=== PATIENT | female | born 1950 | race Caucasian/White ===

== ENCOUNTER 2020-12-01 05:28 | Inpatient (IN) | payer MEDICAID, MEDICARE, OTHER ==
[~2020-12-01] VITALS: Ht 154.9 cm; Wt 62.6 kg
--- NOTE | 2020-12-01 05:49 | ED Dyspnea ---
General Stated Complaint: SOB History of Present Illness Date Seen by Provider: Dec 01, 2020 Time Seen by Provider: 05:40 Initial Comments 7-year-old female with past medical history significant for COPD presents via EMS with shortness of air. Symptoms began yesterday afternoon gradually and she has done several breathing treatments and it progressed throughout the night she called 911 this morning around 5 AM. On arrival EMS states her oxygen saturations were in the low 80s, she was given a breathing treatment in route and eventually progressed to a nonrebreather and her saturations were 97% on arrival. Denies recent fever chills. Allergies and Home Medications Allergies Coded Allergies: egg (Unverified Allergy, Unknown, 12/03/20) orange (Unverified Allergy, Unknown, 12/03/20) Home Medications Cetirizine HCl 10 Mg Tablet, 10 MG PO DAILY, (Reported) Last Action: Reviewed Diclofenac Sodium 50 Mg Tablet.dr, 50 MG PO DAILY, (Reported) Last Action: Reviewed Diclofenac Sodium 50 Mg Tablet.dr, 50 MG PO BID PRN for INFLAMMATION, (Reported) Last Action: Reviewed Diltiazem HCl 120 Mg Capsule.er, 120 MG PO HS, (Reported) Last Action: Reviewed Fluticasone/Salmeterol 1 Each Blst.w.dev, 1 PUFF INH BID, (Reported) Last Action: Reviewed Hydrochlorothiazide 12.5 Mg Tablet, 6.25 MG PO DAILY, (Reported) TAKES OF A 12.5MG TAB Last Action: Reviewed Ipratropium/Albuterol Sulfate 3 Ml Ampul.neb, 3 ML INH Q8H PRN for SHORTNESS OF BREATH, (Reported) Last Action: Reviewed Lisinopril 5 Mg Tablet, 5 MG PO DAILY, (Reported) Last Action: Reviewed Metformin HCl 500 Mg Tablet, 250 MG PO TIDPC, (Reported) TAKES OF A 500MG TAB Last Action: Reviewed Prednisone 10 Mg Tab.ds.pk, 10 MG PO DAILY Take 6 tabs(60mg)daily,decrease by 1 tab(10mg)every other day. Prescribed by: KAREN TRINIDAD on 12/03/20 1236 Rosuvastatin Calcium 10 Mg Tablet, 10 MG PO HS, (Reported) Last Action: Reviewed Patient Home Medication List Home Medication List Reviewed: Yes Review of Systems Review of Systems Constitutional: No fever; malaise; No weakness EENTM: no symptoms reported Respiratory: cough, short of breath, wheezing Cardiovascular: No chest pain, No edema, No palpitations, No syncope Gastrointestinal: No abdominal pain, No constipation, No diarrhea, No nausea, No vomiting Musculoskeletal: No back pain, No joint pain Skin: No change in color, No rash Psychiatric/Neurological: Denies Numbness, Denies Paresthesia Physical Exam Vital Signs Vital Signs - First Documented 12/01/20 05:40 Temp 37.9 Pulse 113 Resp 34 B/P (MAP) 168/87 (114) Pulse Ox 99 O2 Delivery NIV Bilevel O2 Flow Rate 12.00 Capillary Refill : Height, Weight, BMI Height: '" Weight: lbs. oz. kg; BMI Method: General Appearance: Anxious, Chronically ill, Moderate Distress HEENT: Normal ENT Inspection Neck: Normal Inspection, Supple Respiratory: Accessory Muscle Use, Decreased Breath Sounds, Respiratory Distress, Wheezing Cardiovascular: No Edema, No JVD, Tachycardia Gastrointestinal: Non Tender, Soft; No Distended, No Guarding Extremity: Normal Inspection, Non Tender Neurologic/Psychiatric: Alert, Oriented x3, No Motor/Sensory Deficits Skin: Normal Color, Warm/Dry Focused Exam Lactate Level 12/01/20 06:22: Lactic Acid Level 1.12 Lactic Acid Level Laboratory Tests Test 12/01/20 06:22 Lactic Acid Level 1.12 MMOL/L (0.50-2.00) Progress/Results/Core Measures Results/Orders Lab Results Laboratory Tests Test 12/01/20 05:49 12/01/20 06:22 Range/Units White Blood Count 7.1 4.3-11.0 10^3/uL Red Blood Count 3.57 L 4.35-5.85 10^6/uL Hemoglobin 10.9 L 11.5-16.0 G/DL Hematocrit 33 L 35-52 % Mean Corpuscular Volume 94 80-99 FL Mean Corpuscular Hemoglobin 31 25-34 PG Mean Corpuscular Hemoglobin Concent 33 32-36 G/DL Red Cell Distribution Width 12.1 10.0-14.5 % Platelet Count 404 H 130-400 10^3/uL Mean Platelet Volume 8.6 7.4-10.4 FL Neutrophils (%) (Auto) 72 42-75 % Lymphocytes (%) (Auto) 13 12-44 % Monocytes (%) (Auto) 15 H 0-12 % Eosinophils (%) (Auto) 0 0-10 % Basophils (%) (Auto) 0 0-10 % Neutrophils # (Auto) 5.1 1.8-7.8 X 10^3 Lymphocytes # (Auto) 0.9 L 1.0-4.0 X 10^3 Monocytes # (Auto) 1.1 H 0.0-1.0 X 10^3 Eosinophils # (Auto) 0.0 0.0-0.3 10^3/uL Basophils # (Auto) 0.0 0.0-0.1 10^3/uL Sodium Level 130 L 135-145 MMOL/L Potassium Level 4.9 3.6-5.0 MMOL/L Chloride Level 89 L 98-107 MMOL/L Carbon Dioxide Level 30 21-32 MMOL/L Anion Gap 11 5-14 MMOL/L Blood Urea Nitrogen 11 7-18 MG/DL Creatinine 0.64 0.60-1.30 MG/DL Estimat Glomerular Filtration Rate > 60 BUN/Creatinine Ratio 17 Glucose Level 163 H 70-105 MG/DL Calcium Level 9.4 8.5-10.1 MG/DL Corrected Calcium 9.2 8.5-10.1 MG/DL Total Bilirubin 0.3 0.1-1.0 MG/DL Aspartate Amino Transf (AST/SGOT) 27 5-34 U/L Alanine Aminotransferase (ALT/SGPT) 28 0-55 U/L Alkaline Phosphatase 90 40-136 U/L Troponin I < 0.30 <0.30 NG/ML Total Protein 7.6 6.4-8.2 GM/DL Albumin 4.2 3.2-4.5 GM/DL Lactic Acid Level 1.12 0.50-2.00 MMOL/L My Orders Orders - ROVENSTINE,AUSTIN L DO Cbc With Automated Diff (12/01/20 05:44) Comprehensive Metabolic Panel (12/01/20 05:44) Arterial Blood Gas (12/01/20 05:44) Lactic Acid Analyzer (12/01/20 05:44) Troponin I Fs (12/01/20 05:44) Chest 1 View Ap/Pa Only (12/01/20 05:44) Ekg Tracing (12/01/20 05:44) Ed Iv/Invasive Line Start (12/01/20 05:44) Albuterol/Ipra Inhalation Soln (Duoneb I (12/01/20 06:00) Svn Small Volume Nebulizer (12/01/20 05:49) Lorazepam Injection (Ativan Injection) (12/01/20 06:15) Methylprednisolone Sod Succ (Solu-Medrol (12/01/20 07:00) Medications Given in ED Vital Signs/I&O 12/01/20 12/01/20 12/01/20 05:40 05:45 06:53 Temp 37.9 37.9 Pulse 113 113 Resp 34 34 B/P (MAP) 168/87 (114) 143/110 Pulse Ox 99 99 O2 Delivery NIV Bilevel OxyMask NIV Bilevel O2 Flow Rate 12.00 12.00 12.00 Initial ECG Impression Date: Dec 01, 2020 Initial ECG Impression Time: 06:15 Initial ECG Rate: 115 Initial ECG Rhythm: S.Tach Initial ECG Comparisson: No Previous ECG Available Critical Care Note Critical Care Start Time: 05:40 Stop Time: 06:55 Total Time (minutes) 75 Progress started on BiPap for cont'd resp distress, pt anxious but tolerating it. unable to pull meds (ativan) from [facility] to help w anxiety....decision to transfer Improved prior to transfer, tolerating BiPap. Discussed w EMS Departure Communication (Admissions) Time/Spoke to Admitting Phy: 06:[address] Lorenzo, accepts for transfer to ICU explained having trouble w [facility] and unable to pull meds right now and want to move quickly to higher level of care. She agrees. Chem pending. Reviewed CXR and no infiltrate or effusion. Impression Primary Impression: COPD exacerbation Additional Impression: Respiratory distress Disposition: 30 STILL A PATIENT Condition: Improved Admissions Decision to Admit Reason: Admit from ER (Trauma) Decision to Admit/Date: Dec 03, 2020 Time/Decision to Admit Time: 06:00 Departure-Patient Inst. Referrals: VERNON VILLALOBOS DO (PCP/Family) Primary Care Physician Scripts Prednisone (Prednisone) 10 Mg Tab.ds.pk 10 MG PO DAILY, #42 EA Take 6 tabs(60mg)daily,decrease by 1 tab(10mg)every other day. Prov: KAREN TRINIDAD MD 12/03/20 AUSTIN ROBERTO DO Dec 01, 2020 05:49
[2020-12-01] MEDS ORDERED: RT-ALBUTEROL/IPRATROPIUM 3 ML (DUONEB) VIAL INH ONE (06:00)
[2020-12-01 06:01] LABS: BASOPHILS % (AUTO) 0 % (0-10); EOSINOPHILS % (AUTO) 0 % (0-10); HEMATOCRIT 33 % (35-52); HEMOGLOBIN 10.9 G/DL (11.5-16.0); LYMPHOCYTES # (AUTO) 0.9 X 10^3 (1.0-4.0); LYMPHOCYTES % (AUTO) 13 % (12-44); MEAN CORPUSCULAR HEMOGLOBIN 31 PG (25-34); MEAN CORPUSCULAR HGB CONC 33 G/DL (32-36); MEAN CORPUSCULAR VOLUME 94 FL (80-99); MEAN PLATELET VOLUME 8.6 FL (7.4-10.4); MONOCYTES # (AUTO) 1.1 X 10^3 (0.0-1.0); MONOCYTES % (AUTO) 15 % (0-12); NEUTROPHILS # (AUTO) 5.1 X 10^3 (1.8-7.8); NEUTROPHILS % (AUTO) 72 % (42-75); PLATELET COUNT 404 10^3/uL (130-400); WHITE BLOOD COUNT 7.1 10^3/uL (4.3-11.0)
[2020-12-01] MEDS ORDERED: LORazepam INJ 2 MG/ML (ATIVAN) VIAL IVP ONE (06:15)
[2020-12-01 06:22] LABS: ALANINE AMINOTRANSFERASE 28 U/L (0-55); ALBUMIN 4.2 GM/DL (3.2-4.5); ALKALINE PHOSPHATASE 90 U/L (40-136); BILIRUBIN,TOTAL 0.3 MG/DL (0.1-1.0); BUN/CREATININE RATIO 17; CALCIUM 9.4 MG/DL (8.5-10.1); CARBON DIOXIDE 30 MMOL/L (21-32); CHLORIDE 89 MMOL/L (98-107); CREATININE SERUM 0.64 MG/DL (0.60-1.30); GFR ESTIMATED > 60; GLUCOSE 163 MG/DL (70-105); POTASSIUM 4.9 MMOL/L (3.6-5.0); SODIUM 130 MMOL/L (135-145); TOTAL PROTEIN 7.6 GM/DL (6.4-8.2)
--- NOTE | 2020-12-01 06:55 | Diagnostic Imaging Report ---
Indication: Dyspnea. Comparison: None. Discussion: Single portable upright view of the chest was obtained. The lungs are hyperinflated. Mild interstitial thickening is likely due to chronic lung disease. No focal consolidation. No pleural fluid or pneumothorax. Eventration of the right hemidiaphragm is noted. Normal heart size. No osseous abnormality. Impression: 1. No acute cardiopulmonary process. Dictated by: Dictated on workstation # [id number]
[2020-12-01] MEDS ORDERED: methylPREDNISolone 125 MG (Solu-MEDROL) VIAL IVP ONE (07:00)
[2020-12-01] MEDS ORDERED: HYDR12.56 PO (08:06)
[2020-12-01] MEDS ORDERED: IPRA3AMP31 INH (08:06)
[2020-12-01] MEDS ORDERED: ROSU10TA28 PO (08:06)
[2020-12-01] MEDS ORDERED: DILT120C85 PO (08:06)
[2020-12-01] MEDS ORDERED: DICL50TA6 PO (08:06)
[2020-12-01] MEDS ORDERED: LISI-729 PO (08:06)
[2020-12-01] MEDS ORDERED: CETI10TA17 PO (08:06)
[2020-12-01] MEDS ORDERED: FLUT1DIS26 INH (08:06)
[2020-12-01] MEDS ORDERED: METF-397 PO (08:06)
[2020-12-01] MEDS ORDERED: ANTACID SUSP 30 ML UDC (MYLANTA) PO PRN (08:45)
[2020-12-01] MEDS ORDERED: MILK OF MAGNESIA 400 MG/5 ML 30 ML UDC PO PRN (08:45)
[2020-12-01] MEDS ORDERED: BENZONATATE 100 MG (TESSALON) CAPSULE PO PRN (08:45)
[2020-12-01] MEDS ORDERED: ACETAMINOPHEN 325 MG TABLET PO PRN (08:45)
[2020-12-01] MEDS ORDERED: RT-ALBUTEROL/IPRATROPIUM 3 ML (DUONEB) VIAL IH PRN (08:45)
[2020-12-01] MEDS ORDERED: ONDANSETRON 4 MG/2 ML (SDV) Z0FRAN IV PRN (08:45)
[2020-12-01] MEDS ORDERED: MELATONIN 3 MG TABLET PO PRN (08:45)
[2020-12-01] MEDS ORDERED: NON-FORMULARY MEDICATION 1 EA EA (Fluticasone/Salmeterol (Advair 250-50 Diskus) 1 PUFF) SCH (09:00)
[2020-12-01] MEDS ORDERED: HYDROCHLOROTHIAZIDE 6.25 MG PO SCH (09:00)
[2020-12-01] MEDS ORDERED: NON-FORMULARY MEDICATION 1 EA EA (Cetirizine HCl 10 MG) PO SCH (09:00)
--- NOTE | 2020-12-01 10:05 | Tele-ICU Consult ---
History of Present Illness History of Present Illness Date Seen by Provider: Dec 01, 2020 Time Seen by Provider: 10:01 Date of Admission 70 y/o female with a hx of COPD presents to ED with SOB and hypoxemia with pulse ox in the 80s CXR Single portable upright view of the chest was obtained. The lungs are hyperinflated. Mild interstitial thickening is likely due to chronic lung disease. No focal consolidation. No pleural fluid or pneumothorax. Eventration of the right hemidiaphragm is noted. Normal heart size. No osseous abnormality. Impression: 1. No acute cardiopulmonary process. LABS: normal WBC and lactate ABG not drawn Admitted to ICU with excaerbation of COPD on NRB Pulse ox now 100% Allergies and Home Medications Allergies Coded Allergies: No Known Drug Allergies (Unverified , 12/01/20) Home Medications Cetirizine HCl 10 Mg Tablet, 10 MG PO DAILY, (Reported) Diclofenac Sodium 50 Mg Tablet.dr, 50 MG PO DAILY, (Reported) Diltiazem HCl 120 Mg Capsule.er, 120 MG PO HS, (Reported) Fluticasone/Salmeterol 1 Each Blst.w.dev, 1 PUFF BID, (Reported) Hydrochlorothiazide 12.5 Mg Tablet, 6.25 MG PO DAILY, (Reported) Ipratropium/Albuterol Sulfate 3 Ml Ampul.neb, 3 ML INH BID PRN, (Reported) Lisinopril 5 Mg Tablet, 5 MG PO DAILY, (Reported) Metformin HCl 500 Mg Tablet, 250 MG PO TID, (Reported) Rosuvastatin Calcium 10 Mg Tablet, 10 MG PO HS, (Reported) Past Medical/Social/Family Hx Patient Social History Tobacco Use?: Yes Tobacco type used: Cigarettes Smoking Status: Former Smoker Smokeless Tobacco Frequency: Never a User Use of E-Cig and/or Vaping dev: No Substance use?: No Alcohol Use?: No Pt stated abuse/neglect: No Immunizations Up To Date Influenza Vaccine Up-to-Date: No; Not Current Tetanus Booster (TDap): Unknown Current Status status: Unable to obtain status: No Advance Directives: No Advance Directive Location: Home Communicates: Verbally Primary Language: Tanzanian Preferred Spoken Language: Tanzanian Is interpretation needed?: No Implanted or Applied Medical D: None Review of Systems Constitutional: No no symptoms reported, No see HPI, No chills, No diaphoresis, No dizziness, No fever, No malaise, No weakness, No weight gain, No weight loss, No other EENTM: No see HPI, No no symptoms reported, No ear discharge, No hearing loss, No ear pain, No blurred vision, No double vision, No eye pain, No tearing, No vision loss, No dental problems, No hoarseness, No mouth pain, No mouth swelling, No epistaxis, No nose congestion, No nose pain, No throat pain, No throat swelling, No other Respiratory: dyspnea on exertion, short of breath Sepsis Event Evaluation Height, Weight, BMI Height: '" Weight: lbs. oz. kg; 25.67 BMI Method: Exam Exam Patient acknowledged, consented, and participated in this virtual visit which was conducted using real time audio/video Vital Signs Date Time Temp Pulse Resp B/P (MAP) Pulse Ox O2 Delivery O2 Flow Rate FiO2 12/01/20 09:01 92 27 123/57 (79) 98 OxyMask 10.00 12/01/20 07:55 36.4 104 32 117/84 (95) 100 OxyMask 10.00 12/01/20 07:50 106 12/01/20 06:53 37.9 113 34 143/110 99 NIV Bilevel 12.00 12/01/20 05:45 OxyMask 12.00 12/01/20 05:40 37.9 113 34 168/87 (114) 99 NIV Bilevel 12.00 Height & Weight Height: '" Weight: lbs. oz. kg; 25.67 BMI Method: General Appearance: Anxious, Chronically ill, Moderate Distress HEENT: Normal ENT Inspection Neck: Normal Inspection, Supple Respiratory: Accessory Muscle Use, Decreased Breath Sounds, Respiratory Distress, Wheezing Cardiovascular: No Edema, No JVD, Tachycardia Capillary Refill: Less Than 3 Seconds Extremity: Normal Inspection, Non Tender Neurologic/Psychiatric: Alert, Oriented x3, No Motor/Sensory Deficits Skin: Normal Color, Warm/Dry Results Lab Laboratory Tests 12/01/20 05:49 Assessment/Plan Assessment/Plan IMP: acute exaccerbation of COPD with hypoxemic respiratory failure PLAN: IV steroids, albuterol nebs, O2 OLGA PIÑA MD Dec 01, 2020 10:05
--- NOTE | 2020-12-01 10:07 | History & Physical-Hospitalist ---
History of Present Illness HPI/Chief Complaint Pt is a 70CF witha PMH of HTN, NIDDMII, and COPD with chronic 3lpm oxygen requirement who presented to the ER due to shortness of breath. She has had a cough with sputum production over the past 4 days but no fevers or sick contacts. She was using her nebulizer at home around the clock yesterday from the afternoon on. She has not been about any fireworks or smoke. She was hypoxic in the 80s on EMS arrival and by arrival to ER she was on a non rebreather. She was placed on BiPAP in the ER and quickly transferred here as they did not have access to meds in the [place]. She reports feeling much better already and is down to just 6lpm. She has not been COVID vaccinated and despite our discussion continues to refuse vaccination. Source: patient Date Seen 12/01/20 Time Seen by a Provider: 10:02 Attending Physician Alfred Lorenzo MD PCP Damian Hinton DO Referring Physician Date of Admission Dec 01, 2020 at 07:39 Home Medications & Allergies Home Medications Reviewed patient Home Medication Reconciliation performed by pharmacy medication reconciliations pv design and installation technician and/or nursing. Patients Allergies have been reviewed. Allergies Allergies Coded Allergies No Known Drug Allergies (Unverified12/01/20) Past Jrlorao-Qrvwyo-Lrklkf Hx Patient Social History Tobacco Use?: Yes Tobacco type used: Cigarettes Smoking Status: Former Smoker Smokeless Tobacco Frequency: Never a User Use of E-Cig and/or Vaping dev: No Substance use?: No Alcohol Use?: No Pt feels they are or have been: No Immunizations Up To Date Tetanus Booster (TDap): Unknown Current Status status: Unable to obtain status: No Advance Directives: No Advance Directive Location: Home Communicates: Verbally Primary Language: Malian Preferred Spoken Language: Malian Is interpretation needed?: No Implanted or Applied Medical D: None Past Medical History Asthma, COPD Coronary Artery Disease, Hypertension Diabetes, Non-Insulin dep Family Medical History Reviewed Nursing Family Hx No Pertinent Family Hx Review of Systems Constitutional: No chills, No fever EENTM: no symptoms reported Respiratory: cough, phlegm, short of breath, wheezing Cardiovascular: No chest pain, No edema; Hx of Intervention; No palpitations Gastrointestinal: No abdominal pain, No nausea, No vomiting Genitourinary: no symptoms reported Musculoskeletal: no symptoms reported Skin: no symptoms reported Psychiatric/Neurological: No Symptoms Reported Physical Exam Physical Exam Vital Signs Vital Signs - First Documented 12/01/20 05:40 Temp 37.9 Pulse 113 Resp 34 B/P (MAP) 168/87 (114) Pulse Ox 99 O2 Delivery NIV Bilevel O2 Flow Rate 12.00 Capillary Refill : Less Than 3 Seconds Height, Weight, BMI Height: '" Weight: lbs. oz. kg; 25.67 BMI Method: General Appearance: No Apparent Distress, WD/WN, Chronically ill HEENT: PERRL/EOMI, Moist Mucous Membranes; No Scleral Icterus (L), No Scleral Icterus (R) Neck: Normal Inspection, Supple Respiratory: No Accessory Muscle Use, No Respiratory Distress, Wheezing, Other (on 6lpm) Cardiovascular: Regular Rate, Rhythm, No Murmur Gastrointestinal: Normal Bowel Sounds, Non Tender, Soft Extremity: Normal Capillary Refill, No Calf Tenderness, No Pedal Edema Neurologic/Psychiatric: Alert, Oriented x3, Normal Mood/Affect Skin: Normal Color, Warm/Dry Results Results/Procedures Labs Laboratory Tests 12/01/20 05:49 Patient resulted labs reviewed. Imaging: Reviewed Imaging Report Imaging [facility] [place] NAME: GLO CURRIE Jermaine [facility] REC#: [id number] PT STATUS: REG ER : 1950 PHYSICIAN: AUSTIN ROBERTO DO ADMIT DATE: 12/01/20/ER FS Draft Date of Exam:12/01/20 CHEST 1 VIEW AP/PA ONLY Indication: Dyspnea. Comparison: None. Discussion: Single portable upright view of the chest was obtained. The lungs are hyperinflated. Mild interstitial thickening is likely due to chronic lung disease. No focal consolidation. No pleural fluid or pneumothorax. Eventration of the right hemidiaphragm is noted. Normal heart size. No osseous abnormality. Impression: 1. No acute cardiopulmonary process. Dictated on workstation # [id number] Dict: 12/01/20 0638 Trans: 12/01/20 0639 [facility] [id number] Interpreted by: WESLY BARRETO MD Electronically signed by: Assessment/Plan Admission Diagnosis Acute on chronic respiratory failure Admission Status: Inpatient Order (span 2 midnights) Reason for Inpatient Admission: see below Assessment and Plan Acute on chronic respiratory failure COPD with 3lpm chronic need Tobacco abuse Was on BiPAP but now off and doing well Titrate oyxgen to maintain sats >90 Continue steroids Continue home Advair TeleICU consult Recently quit smoking 1 month ago MAT protocol HTN Resome home meds BP well controlled NIDDMII Hold metformin for now Anticipate higher blood sugars with steroids SSI CAD No acute needs, continue home meds Code status: Patient requests to be a DNR. States she has lived a long and fulfilling life raising four children and fostering others. She would like to be allowed to peacefully if it came to that. Code status changed. DVt ppx: Lovenox Diagnosis/Problems Diagnosis/Problems (1) Acute respiratory failure (2) CAD (coronary artery disease) (3) Essential (primary) hypertension (4) Non-insulin dependent type 2 diabetes mellitus (5) Tobacco abuse (6) Prophylactic measure (7) COPD exacerbation Status: Acute ALFRED LORENZO MD Dec 01, 2020 10:07
[2020-12-01] MEDS: RT--FLUTICASONE/SALMETEROL 113-14 (AIRDUO RespiCLICK) IH SCH ×2 (10:12→22:46)
[2020-12-01] MEDS: RT-ALBUTEROL/IPRATROPIUM 3 ML (DUONEB) VIAL IH SCH ×4 (10:12→22:47)
[2020-12-01] MEDS: inSUlin ASPART (NovoLOG) 1 UNIT/0.01 ML (CHARGE PER UNIT) SC SCH ×3 (10:29→21:33)
[2020-12-01] MEDS: LORATADINE (CLARITIN) 10 MG TAB PO SCH (10:29)
[2020-12-01] MEDS: ENOXAPARIN 40 MG/0.4 ML (LOVENOX) SYR SQ SCH (10:29)
[2020-12-01] MEDS: lisINopril 5 MG (PRINIVIL) TABLET PO SCH (10:29)
[2020-12-01] MEDS: methylPREDNISolone 125 MG (Solu-MEDROL) VIAL IV SCH ×2 (12:17→17:31)
[2020-12-01] MEDS: ALPRAZolam 0.25 MG (XANAX) TAB PO PRN ×2 (13:00→21:33)
[2020-12-01 20:04] VITALS: BP 133/71
[2020-12-01] MEDS ORDERED: NON-FORMULARY MEDICATION 1 EA EA (Diltiazem HCl (Diltiazem ER) 120 MG) PO SCH (21:00)
[2020-12-01] MEDS: ROSUVASTATIN 10 MG (CRESTOR) TABLET PO SCH (21:32)
[2020-12-01] MEDS: dilTIAZem120 MG (CARDIZEM CD) CAP PO SCH (21:32)
[2020-12-01 23:54] VITALS: BP 99/63
[2020-12-02] MEDS: methylPREDNISolone 125 MG (Solu-MEDROL) VIAL IV SCH (00:21)
[2020-12-02] MEDS: RT-ALBUTEROL/IPRATROPIUM 3 ML (DUONEB) VIAL IH SCH ×6 (02:26→21:45)
[2020-12-02 03:49] VITALS: BP 158/68
[2020-12-02] MEDS: inSUlin ASPART (NovoLOG) 1 UNIT/0.01 ML (CHARGE PER UNIT) SC SCH ×4 (05:16→20:16)
[2020-12-02] MEDS: ALPRAZolam 0.25 MG (XANAX) TAB PO PRN (05:25)
[2020-12-02 05:58] LABS: HEMATOCRIT 31 % (35-52); HEMOGLOBIN 9.9 g/dL (11.5-16.0); MEAN CORPUSCULAR HEMOGLOBIN 30 pg (25-34); MEAN CORPUSCULAR HGB CONC 32 g/dL (32-36); MEAN CORPUSCULAR VOLUME 93 fL (80-99); MEAN PLATELET VOLUME 9.2 fL (9.0-12.2); PLATELET COUNT 314 10^3/uL (130-400); WHITE BLOOD COUNT 5.7 10^3/uL (4.3-11.0)
[2020-12-02 06:10] LABS: POTASSIUM 4.4 MMOL/L (3.6-5.0)
[2020-12-02 06:11] LABS: CALCIUM 9.2 MG/DL (8.5-10.1)
[2020-12-02 06:15] LABS: CREATININE SERUM 0.96 MG/DL (0.60-1.30)
[2020-12-02 07:45] VITALS: BP_SYST 117; BP_SYST 158; BP_DIAS 58; BP_DIAS 68
[2020-12-02] MEDS: lisINopril 5 MG (PRINIVIL) TABLET PO SCH (08:10)
[2020-12-02] MEDS: LORATADINE (CLARITIN) 10 MG TAB PO SCH (08:10)
[2020-12-02] MEDS ORDERED: predniSONE 20 MG TAB PO NR (08:15)
--- NOTE | 2020-12-02 10:01 | Physical Therapy Progress Note ---
Therapy Progress Note Patient adamantly declined PT stating, "I will wait on my daughter. She's a real bitch. You can deal with her. I'm going to sleep now." 1 ref ([id number]) TYRESE ADLER PT Dec 02, 2020 10:00
[2020-12-02] MEDS: ENOXAPARIN 40 MG/0.4 ML (LOVENOX) SYR SQ SCH (11:04)
--- NOTE | 2020-12-02 11:05 | Progress Note - Hospitalist ---
Subjective HPI/CC On Admission Date Seen by Provider: Dec 02, 2020 Time Seen by Provider: 09:25 Pt is a 70CF witha PMH of HTN, NIDDMII, and COPD with chronic 3lpm oxygen requirement who presented to the ER due to shortness of breath. She has had a cough with sputum production over the past 4 days but no fevers or sick contacts. She was using her nebulizer at home around the clock yesterday from the afternoon on. She has not been about any fireworks or smoke. She was hypoxic in the 80s on EMS arrival and by arrival to ER she was on a non rebreather. She was placed on BiPAP in the ER and quickly transferred here as they did not have access to meds in the xis. She reports feeling much better already and is down to just 6lpm. She has not been COVID vaccinated and despite our discussion continues to refuse vaccination. Subjective/Events-last exam She is feeling better today. She is not feeling short of breath at this time. She still has a cough and sputum production. She denies fevers. Focused Exam Lactate Level 12/01/20 06:22: Lactic Acid Level 1.12 Objective Exam Vital Signs Vital Signs Date Time Temp Pulse Resp B/P (MAP) Pulse Ox O2 Delivery O2 Flow Rate FiO2 12/02/20 10:13 94 Nasal Cannula 3.00 12/02/20 07:45 36.5 90 20 117/58 (77) Capillary Refill : Less Than 3 Seconds General Appearance: No Apparent Distress, Chronically ill Respiratory: No Respiratory Distress, Wheezing Cardiovascular: Regular Rate, Rhythm, No Edema, No Murmur Gastrointestinal: Normal Bowel Sounds, Non Tender, Soft Extremity: Normal Inspection, Non Tender, No Pedal Edema Neurologic/Psychiatric: Alert, Oriented x3, No Motor/Sensory Deficits Skin: Normal Color, Warm/Dry Results/Procedures Lab Laboratory Tests 12/02/20 05:38 Patient resulted labs reviewed. Imaging: Reviewed Imaging Report Assessment/Plan Assessment and Plan Assess & Plan/Chief Complaint Acute on chronic respiratory failure with hypoxia COPD Tobacco abuse Continue steroids Continue home Advair MAT protocol Recently quit smoking 1 month ago Supplemental oxygen as needed, currently on 3 L baseline HTN Continue home meds NIDDMII Hold metformin for now Anticipate higher blood sugars with steroids SSI CAD No acute needs, continue home meds DVt ppx: Lovenox Diagnosis/Problems Diagnosis/Problems (1) Acute on chronic respiratory failure with hypoxia Status: Acute (2) COPD exacerbation Status: Acute (3) Tobacco abuse Status: Chronic (4) Essential (primary) hypertension Status: Chronic KAREN TRINIDAD MD Dec 02, 2020 11:05
[2020-12-02 11:15] VITALS: BP 146/65
[2020-12-02] MEDS: RT--FLUTICASONE/SALMETEROL 113-14 (AIRDUO RespiCLICK) IH SCH ×2 (11:30→22:31)
--- NOTE | 2020-12-02 12:01 | Physical Therapy Evaluation ---
PT Evaluation-General Medical Diagnosis Admission Date Dec 01, 2020 at 07:39 Medical Diagnosis: respiratory distress/exacerbation COPD Onset Date: Dec 01, 2020 Therapy Diagnosis Therapy Diagnosis: debility Precautions Precautions/Isolations: Fall Prevention, Standard Precautions Referral Physician: Lyric Reason for Referral: Evaluation/Treatment Medical History Pertinent Medical History: COPD, DM, HTN Current History EMS secondary to SOA Reviewed History: Yes Social History Home: Apartment Current Living Status: Alone Prior Prior Level of Function SCALE: Activities may be completed with or without assistive devices. 9-Ibuaqzcnep-hfcyiwr completes the activity by him/herself with no assistance from a helper. 5-Set-up or Clean-up Assistance-helper sets up or cleans up; patient completes activity. [place] assists only prior to or following the activity. 4-Supervision or Touching Assistance-helper provides verbal cues and/or touching/steadying and/or contact guard assistance as patient completes activi ty. Assistance may be provided throughout the activity or intermittently. 3-Partial/Moderate Assistance-helper does LESS THAN HALF the effort. [place] lifts, holds or supports trunk or limbs, but provides less than half the effort. 2-Substantial/Maximal Assistance-helper does MORE THAN HALF the effort. [place] lifts or holds trunk or limbs and provides more than half the effort. 7-Izmusovxz-lfukrh does ALL the effort. Patient does none of the effort to complete the activity. Or, the assistance of 2 or more helpers is required for the patient to complete the activity. If activity was not attempted, code reason: 7-Patient Refused. 9-Not Applicable-not attempted and the patient did not perform the activity before the current illness, exacerbation or injury. 10-Not Attempted due to Environmental Limitations-(lack of equipment, weather restraints, etc.). 88-Not Attempted due to Medical Conditions or Safety Concerns. Bed Mobility: 6 Transfers (B,C,W/C): 6 Gait: 6 Indoor Mobility (Ambulation): Independent Prior Devices Use: None PT Evaluation-Current Subjective Patient adamantly declined FWW use. PT attempted to educate patient on using FWW for energy conservation, however, patient continued to decline stating, "I'm not old." Objective Patient Orientation: Person, Time, Situation Attachments: Oxygen ROM/Strength ROM Lower Extremities bilateral LE WFL Strength Lower Extremities 3+/5 grossly bilateral LE Integumentary/Posture Bowel Incontinence: No Bladder Incontinence: No Posture WFL Neuromuscular (Tone, Coordination, Reflexes) grossly intact Sensory Vision: Wears Glasses Hearing: Functional Transfers Lying to Sitting/Side of Bed(Q: 6 Sit to Stand (QC): 4 Chair/Kkt-am-Abdph Xfer(QC): 4 Gait Does the Patient Walk?: Yes Mode of Locomotion: Walk Anticipated Mode of Locomotion: Walk Walk 10 feet (QC): 4 Walk 50 ft with 2 Turns(QC): 4 Walk 150 ft (QC): 88 Distance: 75' Gait Assistive Device: None Comments/Gait Description patient utilized bed rails and table to ambulate Balance Sitting Static: Normal Sitting Dynamic: Normal Standing Static: Fair Standing Dynamic: Fair Picking up an Object (QC): 6 Treatment SAO2 decrease to 83% on 4L O2 NC. Very slow recovery with increasing O2 to 5L with recovery to 90% after 5 min. RN notified. Assessment/Needs 70 y.o. female, will benefit from skilled PT to address functional strength and mobility to improve current LOF to safely return to home at maximum LOF. Rehab Potential: Fair PT [facility] Goals [employer] Account Executive Goals PT [employer] Account Executive Goals Time Frame: Dec 13, 2020 Roll Left & Right (QC): 6 Sit to Lying (QC): 6 Lying-Sitting on Side/Bed(QC): 6 Sit to Stand (QC): 6 Chair/Lrg-jd-Iwetn Xfer(QC): 6 Toilet Transfer (QC): 6 Does the Patient Walk: Yes Walk 10 feet (QC): 6 Walk 50ft with 2 Turns (QC): 6 Walk 150 ft (QC): 6 PT Plan Problem List Problem List: Activity Tolerance, Functional Strength, Safety, Balance, Gait, Transfer Treatment/Plan Treatment Plan: Continue Plan of Care Treatment Plan: Bed Mobility, Education, Functional Activity Delilah, Functional Strength, Gait, Safety, Therapeutic Exercise, Transfers Treatment Duration: Dec 13, 2020 Frequency: 6 times per week Estimated Hrs Per Day: .25 hour per day Patient and/or Family Agrees t: Yes Time/GCodes Time In: 1100 Time Out: 1115 Total Billed Treatment Time: 15 Total Billed Treatment 1 visit EVModC 15 min TYRESE ADLER PT Dec 02, 2020 12:01
[2020-12-02 16:20] VITALS: BP 116/55
[2020-12-02 19:20] VITALS: BP 129/58
[2020-12-02] MEDS: ROSUVASTATIN 10 MG (CRESTOR) TABLET PO SCH (20:33)
[2020-12-02] MEDS: dilTIAZem120 MG (CARDIZEM CD) CAP PO SCH (20:33)
[2020-12-02 23:27] VITALS: BP 102/57
[2020-12-03] MEDS: RT-ALBUTEROL/IPRATROPIUM 3 ML (DUONEB) VIAL IH SCH ×4 (01:46→15:35)
[2020-12-03 04:00] VITALS: BP 94/54
[2020-12-03] MEDS: inSUlin ASPART (NovoLOG) 1 UNIT/0.01 ML (CHARGE PER UNIT) SC SCH ×2 (06:36→11:05)
[2020-12-03] MEDS ORDERED: predniSONE 20 MG TAB PO SCH (07:00)
[2020-12-03 08:00] VITALS: BP 125/68
[2020-12-03] MEDS: lisINopril 5 MG (PRINIVIL) TABLET PO SCH (08:29)
[2020-12-03] MEDS: LORATADINE (CLARITIN) 10 MG TAB PO SCH (08:29)
[2020-12-03] MEDS: ENOXAPARIN 40 MG/0.4 ML (LOVENOX) SYR SQ SCH (08:29)
[2020-12-03] MEDS: ALPRAZolam 0.25 MG (XANAX) TAB PO PRN (08:35)
[2020-12-03 08:39] LABS: CHLORIDE 91 MMOL/L (98-107); POTASSIUM 4.6 MMOL/L (3.6-5.0); SODIUM 134 MMOL/L (135-145)
[2020-12-03 08:40] LABS: CALCIUM 9.1 MG/DL (8.5-10.1)
[2020-12-03 08:41] LABS: GLUCOSE 144 MG/DL (70-105)
[2020-12-03 08:42] LABS: CARBON DIOXIDE 34 MMOL/L (21-32)
[2020-12-03 08:45] LABS: BUN/CREATININE RATIO 40; CREATININE SERUM 0.87 MG/DL (0.60-1.30); GFR ESTIMATED > 60
[2020-12-03] MEDS: RT--FLUTICASONE/SALMETEROL 113-14 (AIRDUO RespiCLICK) IH SCH (10:12)
--- NOTE | 2020-12-03 10:32 | Physical Therapy Daily Note ---
PT Daily Note-Current Subjective Patient reluctantly agrees to PT. Continues to decline FWW use for energy conservation. Mental Status Patient Orientation: Normal For Age Attachments: Oxygen Transfers SCALE: Activities may be completed with or without assistive devices. 5-Yfesvnwclt-yoybgap completes the activity by him/herself with no assistance from a helper. 5-Set-up or Clean-up Assistance-helper sets up or cleans up; patient completes activity. [place] assists only prior to or following the activity. 4-Supervision or Touching Assistance-helper provides verbal cues and/or touching/steadying and/or contact guard assistance as patient completes activity. Assistance may be provided throughout the activity or intermittently. 3-Partial/Moderate Assistance-helper does LESS THAN HALF the effort. [place] lifts, holds or supports trunk or limbs, but provides less than half the effort. 2-Substantial/Maximal Assistance-helper does MORE THAN HALF the effort. [place] lifts or holds trunk or limbs and provides more than half the effort. 1-Ycuaqdrgx-boavwf does ALL the effort. Patient does none of the effort to complete the activity. Or, the assistance of 2 or more helpers is required for the patient to complete the activity. If activity was not attempted, code reason: 7-Patient Refused. 9-Not Applicable-not attempted and the patient did not perform the activity before the current illness, exacerbation or injury. 10-Not Attempted due to Environmental Limitations-(lack of equipment, weather restraints, etc.). 88-Not Attempted due to Medical Conditions or Safety Concerns. Lying to Sitting/Side of Bed(Q: 6 Sit to Stand (QC): 6 Chair/Yxr-bl-Tyzpq Xfer(QC): 6 Gait Training Does the Patient Walk?: Yes Distance: 50' in room Walk 10 feet (QC): 4 (SBA) Walk 50 ft with 2 Turns(QC): 4 (SBA) Gait Assistive Device: None slight unsteady gait with patient "furniture" walking Assessment Patient ceased treatment due to feeling nauseous and increase anxiety. RN aware. PT Shop Teacher Goals Shop Teacher Goals PT Alf Goals Time Frame: Dec 13, 2020 Roll Left & Right (QC): 6 Sit to Lying (QC): 6 Lying-Sitting on Side/Bed(QC): 6 Sit to Stand (QC): 6 Chair/Yjw-gk-Rampw Xfer(QC): 6 Toilet Transfer (QC): 6 Does the Patient Walk: Yes Walk 10 feet (QC): 6 Walk 50ft with 2 Turns (QC): 6 Walk 150 ft (QC): 6 PT Plan Treatment/Plan Treatment Plan: Continue Plan of Care Treatment Plan: Bed Mobility, Education, Functional Activity Delilah, Functional Strength, Gait, Safety, Therapeutic Exercise, Transfers Treatment Duration: Dec 13, 2020 Frequency: 6 times per week Estimated Hrs Per Day: .25 hour per day Patient and/or Family Agrees t: Yes Time/GCodes Time In: 840 Time Out: 856 Total Billed Treatment Time: 16 Total Billed Treatment 1 visit FA 16 min TYRESE ADLER PT Dec 03, 2020 10:32
[2020-12-03] MEDS ORDERED: DICL50TA6 PO (11:47)
[2020-12-03 12:00] VITALS: BP 108/63
[2020-12-03] MEDS ORDERED: PRED10TA22 PO (12:36)
--- NOTE | 2020-12-03 13:10 | Discharge Summary ---
Discharge Summary Hospital Course Was the Problem List Reviewed?: Yes Problems/Dx: (1) Acute on chronic respiratory failure with hypoxia Status: Acute (2) COPD exacerbation Status: Acute (3) Tobacco abuse Status: Chronic (4) Essential (primary) hypertension Status: Chronic Hospital Course Date of Admission: Dec 01, 2020 at 07:39 Admission Diagnosis : COPD with acute exacerbation Family Physician/Provider: Damian Hinton DO Date of Discharge: 12/03/20 Discharge Diagnosis: COPD with acute exacerbation Hospital Course: Connie Mancuso is a 70 year old female who was admitted with acute COPD exacerbation. She chronically uses 3 L oxygen at baseline. She was requiring increased amounts of oxygen on arrival, but this quickly improved with steroids. Her oxygen requirement returned to baseline prior to discharge. She was prescribed a steroid taper on discharge. She did not want home health care. She was discharged home in stable condition. She should follow up with her PCP in a week. Labs and Pending Lab Test: Laboratory Tests 12/02/20 16:32: Glucometer 162H 12/02/20 19:23: Glucometer 167H 12/03/20 05:53: Glucometer 125H 12/03/20 08:00: Sodium Level 134L, Potassium Level 4.6, Chloride Level 91L, Carbon Dioxide Level 34H, Anion Gap 9, Blood Urea Nitrogen 35H, Creatinine 0.87, Estimat Glomerular Filtration Rate > 60, BUN/Creatinine Ratio 40, Glucose Level 144H, Calcium Level 9.1 12/03/20 08:52: Glucometer 179H 12/03/20 10:59: Glucometer 139H Microbiology 12/01/20 MRSA Screen - Final, Complete MRSA not isolated Home Meds Active Prednisone 10 Mg Tab.ds.pk 10 Mg PO DAILY Take 6 tabs(60mg)daily,decrease by 1 tab(10mg)every other day. Reported Diclofenac Sodium 50 Mg Tablet.dr 50 Mg PO BID PRN Cetirizine HCl 10 Mg Tablet 10 Mg PO DAILY Metformin HCl 500 Mg Tablet 250 Mg PO TIDPC TAKES OF A 500MG TAB Rosuvastatin Calcium 10 Mg Tablet 10 Mg PO HS Hydrochlorothiazide 12.5 Mg Tablet 6.25 Mg PO DAILY TAKES OF A 12.5MG TAB Diclofenac Sodium 50 Mg Tablet.dr 50 Mg PO DAILY Lisinopril 5 Mg Tablet 5 Mg PO DAILY Diltiazem ER (Diltiazem HCl) 120 Mg Capsule.er 120 Mg PO HS Iprat-Albut 0.5-3(2.5) mg/3 ml (Ipratropium/Albuterol Sulfate) 3 Ml Ampul.neb 3 Ml INH Q8H PRN Advair 250-50 Diskus (Fluticasone/Salmeterol) 1 Each Blst.w.dev 1 Puff INH BID Assessment/Pt Instructions Take medications as prescribed. Follow up with your PCP. Return with worsening shortness of breath or if you feel like you are getting worse. Discharge Planning: <30 minutes discharge planning Discharge Instructions Discharge Diet: No Restrictions Activity as Tolerated: Yes Discharge Physical Examination Vital Signs Vital Signs Date Time Temp Pulse Resp B/P (MAP) Pulse Ox O2 Delivery O2 Flow Rate FiO2 12/03/20 12:00 36.6 82 20 108/63 (78) 96 Nasal Cannula 3.00 General Appearance: No Apparent Distress, Chronically ill Respiratory: No Respiratory Distress, Decreased Breath Sounds Cardiovascular: Regular Rate, Rhythm, No Edema, No Murmur Gastrointestinal: Normal Bowel Sounds, Non Tender, Soft Extremity: Normal Inspection, Non Tender, No Pedal Edema Skin: Normal Color, Warm/Dry Neurologic/Psychiatric: Alert, Oriented x3, No Motor/Sensory Deficits, Normal Mood/Affect Allergies: Coded Allergies: egg (Unverified Allergy, Unknown, 12/03/20) orange (Unverified Allergy, Unknown, 12/03/20) Copy Copies To 1: DAMIAN HINTON DO Discharge Summary Date of Admission Dec 01, 2020 at 07:39 Date of Discharge Discharge Date: Dec 03, 2020 Discharge Time: 12:52 Admission Diagnosis Acute on chronic respiratory failure Discharge Diagnosis Acute on chronic respiratory failure with hypoxia COPD exacerbation (1) Acute on chronic respiratory failure with hypoxia Status: Acute (2) COPD exacerbation Status: Acute (3) Tobacco abuse Status: Chronic (4) Essential (primary) hypertension Status: Chronic KAREN TRINIDAD MD Dec 03, 2020 13:06
== END 2020-12-03 16:20 | disposition home or self-care (01) | DRG 189 ==
LOC: EDUNIT# 05:28 → ER FS 05:39 → ICU 07:39 → 4TH 15:22
PROVIDERS: ADMIT Family Medicine; ATTEND Family Medicine
PROC: 5A09357 Assistance with Respiratory Ventilation, Less than 24 Consecutive Hours, Continuous Positive Airway Pressure (ICD-10-PCS; principal; 2020-12-01)
DX: J96.21 Acute and chronic respiratory failure with hypoxia (principal); J44.1 Chronic obstructive pulmonary disease with (acute) exacerbation; I10 Essential (primary) hypertension; E11.9 Type 2 diabetes mellitus without complications; I25.10 Atherosclerotic heart disease of native coronary artery without angina pectoris; F17.200 Nicotine dependence, unspecified, uncomplicated; Z66 Do not resuscitate; Z20.822 Contact with and (suspected) exposure to COVID-19; Z79.01 Long term (current) use of anticoagulants; Z79.899 Other long term (current) drug therapy
CPT/HCPCS: 36415; 71045; 80048; 80053; 82947; 83605; 84145; 84484; 85025; 85027; 87081; 87636; 93005; 94640; 94760

== ENCOUNTER 2022-05-13 06:13 | Inpatient (IN) | payer MEDICARE ==
[~2022-05-13] VITALS: Ht 154 cm; Wt 70.7 kg
[~2022-05-13 06:13] MED LIST: CETI10TA17 PO; DICL50TA6 PO; DILT120C85 PO; FLUT1DIS26 INH; HYDR12.56 PO; IPRA3AMP31 INH; LISI5TAB20 PO; METF-397 PO; PRED10TA22 PO; ROSU10TA28 PO
--- NOTE | 2022-05-13 06:28 | ED General ---
General Stated Complaint: ALTERED MENTAL STATUS History of Present Illness Date Seen by Provider: May 13, 2022 Time Seen by Provider: 06:25 Initial Comments 71-year-old female brought in due to altered mental status. EMS reports that she was found by her family altered. We are unsure if she fell because he was reports that she "slid down off the couch. She has a very minimal abrasion by the left eye. EMS reports that her oxygen was in the 70s when they arrived and placed her on nonrebreather which brought her oxygen back up in the upper 90s. No other HPI available (ALIVIA TUCKER DO) Allergies and Home Medications Allergies Coded Allergies: egg (Unverified Allergy, Unknown, 12/03/20) orange (Unverified Allergy, Unknown, 12/03/20) Patient Home Medication List Home Medication List Reviewed: Yes (ALIVIA TUCKER DO) Cetirizine HCl (Cetirizine HCl) 10 Mg Tablet, 10 MG PO DAILY, (Reported) Entered as Reported by: SHANITA DICKSON on 12/01/20 08 Diclofenac Sodium (Diclofenac Sodium) 50 Mg Tablet.dr, 50 MG PO DAILY, (Reported) Entered as Reported by: SHANITA DICKSON on 12/01/20 08 Diclofenac Sodium (Diclofenac Sodium) 50 Mg Tablet.dr, 50 MG PO BID PRN for INFLAMMATION, (Reported) Entered as Reported by: DEBBY CAVAZOS on 12/03/20 1147 Diltiazem HCl (Diltiazem ER) 120 Mg Capsule.er, 120 MG PO HS, (Reported) Entered as Reported by: SHANITA DICKSON on 12/01/20 08 Fluticasone/Salmeterol (Advair 250-50 Diskus) 1 Each Blst.w.dev, 1 PUFF INH BID, (Reported) Entered as Reported by: SHANITA DICKSON on 12/01/20 08 Hydrochlorothiazide (Hydrochlorothiazide) 12.5 Mg Tablet, 6.25 MG PO DAILY, (Reported) Entered as Reported by: SHANITA DICKSON on 12/01/20 08 Ipratropium/Albuterol Sulfate (Iprat-Albut 0.5-3(2.5) mg/3 ml) 3 Ml Ampul.neb, 3 ML INH Q8H PRN for SHORTNESS OF BREATH, (Reported) Entered as Reported by: SHANITA DICKSON on 12/01/20 08 Lisinopril (Lisinopril) 5 Mg Tablet, 5 MG PO DAILY, (Reported) Entered as Reported by: SHANITA DICKSON on 12/01/20 08 Metformin HCl (Metformin HCl) 500 Mg Tablet, 250 MG PO TIDPC, (Reported) Entered as Reported by: SHANITA DICKSON on 12/01/20 08 Prednisone (Prednisone) 10 Mg Tab.ds.pk, 10 MG PO DAILY Prescribed by: KAREN TRINIDAD on 12/03/20 1236 Rosuvastatin Calcium (Rosuvastatin Calcium) 10 Mg Tablet, 10 MG PO HS, (Reported) Entered as Reported by: SHANITA DICKSON on 12/01/20 08 Review of Systems Review of Systems Constitutional: see HPI Unable to obtain further review of system (ALIVIA TUCKER DO) Past Afdultx-Lboxdk-Hzcmhj Hx Past Medical History Asthma, COPD Coronary Artery Disease, Hypertension Diabetes, Non-Insulin dep (ALIVIA TUCKER DO) Family Medical History No Pertinent Family Hx (ALIVIA TUCKER DO) Physical Exam Vital Signs Vital Signs - First Documented 05/13/22 05/13/22 06:15 08:17 Temp 35.6 Pulse 87 Resp 20 B/P (MAP) 111/90 (97) Pulse Ox 97 O2 Delivery Non Rebreather O2 Flow Rate 12.00 (ELIDA MORAN MD) Vital Signs Capillary Refill : (ALIVIA TUCKER DO) Height, Weight, BMI Height: '" Weight: lbs. oz. kg; 25.67 BMI Method: General Appearance: Other (Chronically ill-appearing, moaning, ) Eyes: Bilateral Eye Other (Approximately 2 mm and sluggish) Respiratory: Decreased Breath Sounds Cardiovascular: Regular Rate, Rhythm, No Edema Neurologic/Psychiatric: Other (mild response to painful stimuli, doesnt follow commands ) (ALIVIA TUCKER DO) Focused Exam Lactate Level 05/13/22 06:30: Lactic Acid Level 0.52 (ELIDA MORAN MD) Lactic Acid Level Laboratory Tests Test 05/13/22 06:30 Lactic Acid Level 0.52 MMOL/L (0.50-2.00) (ELIDA MORAN MD) Progress/Results/Core Measures Suspected Sepsis SIRS Temperature: Pulse: Respiratory Rate: Laboratory Tests 05/13/22 06:30: White Blood Count 6.2 Blood Pressure / Mean: 05/13/22 06:30: Laboratory Tests 05/13/22 06:30: Platelet Count 192 (ALIVIA TUCKER DO) Results/Orders Lab Results Laboratory Tests Test 05/13/22 06:30 05/13/22 06:37 05/13/22 07:02 05/13/22 07:21 Range/Units White Blood Count 6.2 4.3-11.0 10^3/uL Red Blood Count 3.28 L 3.80-5.11 10^6/uL Hemoglobin 9.3 L 11.5-16.0 g/dL Hematocrit 31 L 35-52 % Mean Corpuscular Volume 94 80-99 fL Mean Corpuscular Hemoglobin 28 25-34 pg Mean Corpuscular Hemoglobin Concent 30 L 32-36 g/dL Red Cell Distribution Width 12.8 10.0-14.5 % Platelet Count 192 130-400 10^3/uL Mean Platelet Volume 10.6 9.0-12.2 fL Immature Granulocyte % (Auto) 0 % Neutrophils (%) (Auto) 88 H 42-75 % Lymphocytes (%) (Auto) 6 L 12-44 % Monocytes (%) (Auto) 5 0-12 % Eosinophils (%) (Auto) 0 0-10 % Basophils (%) (Auto) 0 0-10 % Neutrophils # (Auto) 5.5 1.8-7.8 10^3/uL Lymphocytes # (Auto) 0.4 L 1.0-4.0 10^3/uL Monocytes # (Auto) 0.3 0.0-1.0 10^3/uL Eosinophils # (Auto) 0.0 0.0-0.3 10^3/uL Basophils # (Auto) 0.0 0.0-0.1 10^3/uL Immature Granulocyte # (Auto) 0.0 0.0-0.1 10^3/uL Neutrophils % (Manual) 82 % Lymphocytes % (Manual) 4 % Monocytes % (Manual) 7 % Band Neutrophils 7 % Toxic Granulation 2+ Platelet Estimate NORMAL Poikilocytosis SLIGHT Elliptocytes SLIGHT Schistocytes SLIGHT Blood Morphology Comment ABNORMAL Sodium Level 137 135-145 MMOL/L Potassium Level 5.2 H 3.6-5.0 MMOL/L Chloride Level 92 L 98-107 MMOL/L Carbon Dioxide Level 41 H 21-32 MMOL/L Anion Gap 4 L 5-14 MMOL/L Blood Urea Nitrogen 24 H 7-18 MG/DL Creatinine 0.68 0.60-1.30 MG/DL Estimat Glomerular Filtration Rate 93 BUN/Creatinine Ratio 35 Glucose Level 132 H 70-105 MG/DL Lactic Acid Level 0.52 0.50-2.00 MMOL/L Calcium Level 9.3 8.5-10.1 MG/DL Corrected Calcium 9.4 8.5-10.1 MG/DL Total Bilirubin 0.2 0.1-1.0 MG/DL Aspartate Amino Transf (AST/SGOT) 24 5-34 U/L Alanine Aminotransferase (ALT/SGPT) 10 0-55 U/L Alkaline Phosphatase 63 40-136 U/L Troponin I < 0.30 <0.30 NG/ML C-Reactive Protein 1.58 H <0.50 MG/DL Total Protein 7.5 6.4-8.2 GM/DL Albumin 3.9 3.2-4.5 GM/DL Serum Alcohol < 10 <10 MG/DL Influenza Type A (RT-PCR) Not Detected Not Detecte Influenza Type B (RT-PCR) Not Detected Not Detecte SARS-CoV-2 RNA (RT-PCR) Not Detected Not Detecte Urine Color YELLOW Urine Clarity CLEAR Urine pH 6.0 5-9 Urine Specific [place] >=1.030 1.016-1.022 Urine Protein TRACE H NEGATIVE Urine Glucose (UA) NEGATIVE NEGATIVE Urine Ketones NEGATIVE NEGATIVE Urine Nitrite NEGATIVE NEGATIVE Urine Bilirubin NEGATIVE NEGATIVE Urine Urobilinogen 0.2 < = 1.0 MG/DL Urine Leukocyte Esterase NEGATIVE NEGATIVE Urine RBC (Auto) TRACE-I H NEGATIVE Urine RBC 2-5 H /HPF Urine WBC 0-2 /HPF Urine Squamous Epithelial Cells 0-2 /HPF Urine Crystals NONE /LPF Urine Bacteria NEGATIVE /HPF Urine Casts PRESENT /LPF Urine Hyaline Casts 5-10 H /LPF Urine Granular Casts 0-2 H /LPF Urine Mucus SMALL H /LPF Urine Culture Indicated NO Urine Opiates Screen NEGATIVE NEGATIVE Urine Oxycodone Screen NEGATIVE NEGATIVE Urine Methadone Screen NEGATIVE NEGATIVE Urine Propoxyphene Screen NEGATIVE NEGATIVE Urine Barbiturates Screen NEGATIVE NEGATIVE Ur Tricyclic Antidepressants Screen NEGATIVE NEGATIVE Urine Phencyclidine Screen NEGATIVE NEGATIVE Urine Amphetamines Screen NEGATIVE NEGATIVE Urine Methamphetamines Screen NEGATIVE NEGATIVE Urine Benzodiazepines Screen NEGATIVE NEGATIVE Urine Cocaine Screen NEGATIVE NEGATIVE Urine Cannabinoids Screen NEGATIVE NEGATIVE Bedside Blood Gas pH (LAB) 7.148 *L 7.310-7.410 Bedside Blood Gas pCO2 (LAB) > 130.0 *H 41.0-51.0 mmHg Bedside Blood Gas pO2 (LAB) 36 *L 80-105 mmHg Bedside Blood Gas HCO3 (LAB) 23.0-28.0 mmol/L POC Blood Gas Total CO2 Calc 24-29 mmol/L Bedside Bl Gas O2 Saturation (Calc) 95-98 % Bedside Arterial Blood Base Excess -2-3 mmol/L Test 05/13/22 08:45 Range/Units Bedside Blood Gas pH (LAB) 7.093 *L 7.310-7.410 Bedside Blood Gas pCO2 (LAB) > 130.0 *H 41.0-51.0 mmHg Bedside Blood Gas pO2 (LAB) 407 H 80-105 mmHg Bedside Blood Gas HCO3 (LAB) 23.0-28.0 mmol/L POC Blood Gas Total CO2 Calc 24-29 mmol/L Bedside Bl Gas O2 Saturation (Calc) 95-98 % Bedside Arterial Blood Base Excess -2-3 mmol/L (ELIDA MORAN MD) My Orders Orders - ELIDA MORAN MD Drug Screen Stat (Urine) (05/13/22 07:12) Alcohol (05/13/22 07:12) Arterial Blood Gas (05/13/22 07:21) Ns Iv 1000 Ml (Sodium Chloride 0.9%) (05/13/22 07:35) Ekg Tracing (05/13/22 07:35) Monitor-Rhythm Ecg Trace Only (05/13/22 07:35) Bipap (Bilevel) Set Up (05/13/22 07:44) Ed Admission (Communication) (05/13/22 08:18) Arterial Blood Gas (05/13/22 08:19) Methylprednisolone Sod Succ (Solu-Medrol (05/13/22 08:28) Albuterol Pre-Mix Nebs (Rt) (Proventil (05/13/22 08:28) Svn Small Volume Nebulizer (05/13/22 08:28) Albuterol Pre-Mix Nebs (Rt) (Proventil (05/13/22 08:38) Ns Iv 1000 Ml (Sodium Chloride 0.9%) (05/13/22 09:38) (ELIDA MORAN MD) Medications Given in ED Current Medications Medications Dose Ordered Sig/Jhoana Route Start Time Stop Time Status Last Admin Dose Admin Naloxone HCl 2 mg STK-MED ONCE .ROUTE 05/13/22 06:56 05/13/22 06:58 DC 05/13/22 08:12 2 MG (ELIDA MORAN MD) Vital Signs/I&O 05/13/22 05/13/22 05/13/22 06:15 08:17 10:01 Temp 35.6 36.4 Pulse 87 81 83 Resp 20 28 38 B/P (MAP) 111/90 (97) 132/43 150/56 (87) Pulse Ox 97 92 O2 Delivery Non Rebreather NIV CPAP NIV CPAP O2 Flow Rate 12.00 50.00 (ELIDA MORAN MD) Vital Signs/I&O Capillary Refill : (ALIVIA TUCKER DO) Progress Note : Time: 06:57 Progress Note pt evaluation initiated and workup started and care turned over to oncoming physician (ALIVIA TUCKER DO) Progress Note #1: Time: 07:55 Progress Note I assumed care of the patient from Dr. Tucker at shift change. Patient with decreased responsiveness and reportedly hypoxic in mid 70s for her O2 sat initially but on OxiMask she was 100%. Labs do not show elevated WBC count and she has stable chronic anemia with Hgb 9.3. Chemistry shows Elevated CO2 to 41 with normal Cr of 0.68. Troponin is negative at <0.3. Lactic acid is normal at 0.52. Mild hyperkalemia of 5.2. Urine shows dehydration with elevated specific gravity >1.030 but no LE or Nit for UTI. UDS and alcohol levels negative. CXR without acute process. CT head no acute intracranial process. ABG might be venous as it showed pH 7.15, pCO2 >130, pO2 36. This was on her OxiMask and she was showing O2 saturation 100%. This appears to be acute on chronic respiratory failure and COPD exacerbation. She is not showing signs of infection or heart attack or heart failure. Will place on BiPAP at 12/5 with FiO2 of 40% and rate of 20. Contact Dr. Lorenzo about possible hospitalist admission to the ICU Progress Note #2: Time: 08:15 Progress Note D/w Dr. Lorenzo and reviewed case with her. Reviewed that she came in with hypoxia and decreased responsiveness but saturation 100% on Oxi Mask. Labs show elevated pCO2 on ABG which might be venous, but had >130 pCO2 so even for venous specimen was elevated. No pneumonia or CXR. CT head without acute findings. Negative troponin so not seeing heart attack at this time. ECG with sinus rhythm without ST elevation or ischemia. Not seeing infection with her Urine clear and no pne umonia. Influenza and Covid were both negative. BiPap to try and help blow off her CO2 since it had helped when she was admitted in November 2020 for respiratory failure. Consult E-ICU to help manage care and get advice for BiPap settings. She accepted to the ICU for her Respiratory failure, acute on chronic and Hypercapnemia. When I spoke to ESTEPHANIA Prescott, the warehouse order picker she said they were tight on her hands but should be able to accommodate taking care of the patient. They would assign us a room and place it on the tracker for us. 0825 Patient did not have Oxygen saturation improving on initial FiO2 settings so this was increased to 100% to try and get her sats >90%. After discussion with attending from E-ICU she had adjustments for the BiPap settings and improved tidal volume. Add on Solumedrol 125 mg IV with albuterol treatment to try and help with COPD exacerbation. Will repeat ABG after these changes and medications have been given. Progress Note #3: Time: 09:06 Progress Note ABG now shows pH 7.09, pCO2 >130, pO2 407. Will decrease FiO2 to 50% to help bring her O2 saturation down. Will check back with [facility] about bed assignment for the patient. [id number] [facility] called to say that they were on diversion for all admits but would still take this patient. They will have to move other patients around to get her bed ready and will let us know as soon as they can take her. Progress Note #4: Time: 09:35 Progress Note Tidal volume was almost 800 so will decrease I/E ratio to 16/6. This decreased her TV to 500-600. I did not want the pressure so high that it caused her to have a pneumothorax with her COPD. She finished the NS 1 L IVF bolus and is having light yellow colored urine output in [place]. Will add NS at 100 ml/hr to help with hydration. still awaiting ICU bed for patient to be transferred to [facility]. Patient is opening her eyes to voice but not following commands. (ELIDA MORAN MD) ECG Initial ECG Impression Date: May 13, 2022 Initial ECG Impression Time: 07:49 Initial ECG Rate: 82 Initial ECG Rhythm: Normal Sinus Initial ECG Comparisson: Changed Comment Based on my individual interpretation and review her electrocardiogram shows sinus rhythm with a heart rate of 82 bpm. WA interval [address] elevation. QT interval 377 ms with a QTc interval 415 ms. There is is improved from her prior tracing December 01, 2020 that had sinus tachycardia and artifact on it. (ELIDA MORAN MD) Diagnostic Imaging Diagonstic Imaging: Xray Plain Films/CT/US/NM/MRI: chest [facility] [place] [place] NAME: GLO CURRIE MED REC#: [id number] PT STATUS: REG ER : 1950 PHYSICIAN: ALIVIA TUCKER DO ADMIT DATE: 05/13/22/ER FS Signed Date of Exam:05/13/22 CHEST 1 VIEW AP/PA ONLY EXAMINATION: Chest radiograph, portable AP view. DATE: 05/13/2022 6:58 AM INDICATION: 71-year-old female, altered mental status. COMPARISON: December 01, 2020. FINDINGS: Heart size and mediastinal contours are unchanged. There is no identified pneumothorax. There is no large pleural effusion. There is no identified interval focal airspace consolidation. IMPRESSION: 1. No identified interval acute cardiopulmonary abnormality. Dictated by: Dictated on workstation # [id number] Dict: 05/13/22 0659 Trans: 05/13/[address] [facility] [id number] Interpreted by: KASIA TORRES MD Electronically signed by: KASIA TORRES MD 05/13/22806 Reviewed: Reviewed by Me Diagonstic Imaging: CT Plain Films/CT/US/NM/MRI: head Comments [facility] [place], [place] NAME: GLO CURRIE MED REC#: [id number] PT STATUS: REG ER : 1950 PHYSICIAN: ALIVIA TUCKER DO ADMIT DATE: 05/13/22/ER FS Signed Date of Exam:05/13/22 CT HEAD WO-R/O STROKE PROCEDURE: CT head without contrast. TECHNIQUE: Multiple contiguous axial images were obtained through the brain without the use of intravenous contrast. Auto Exposure Controls were utilized during the CT exam to meet ALARA standards for radiation dose reduction. DATE: May 13, 2022. COMPARISON: None. INDICATION: 71-year-old female, shortness of breath. Altered mental status. FINDINGS: There are motion limitations on this exam. The ventricles and cerebral spinal fluid spaces are of normal size and configuration for the patient's age. There is no mass effect or midline shift. There is no acute intracranial hemorrhage. There is no abnormal extra-axial fluid collection. The visualized portions of the paranasal sinuses, mastoid air cells and middle ears are well aerated. IMPRESSION: 1. No identified acute intracranial abnormality. 2. There are some motion limitations of evaluation. Dictated by: Dictated on workstation # [id number] Dict: 05/13/22711 Trans: 05/13/[address] [facility] [id number] Interpreted by: KASIA TORRES MD Electronically signed by: KASIA TORRES MD 05/13/22806 Reviewed: Reviewed by Me (ELIDA MORAN MD) Critical Care Note Critical Care Total Time (minutes) 90 minutes Progress 90 minutes of critical care time was spent with the patient. Time excludes separately billable procedures. Time was spent obtaining history from electronic record and fast food shift lead staff, ordering tests and reviewing results, ordering interventions and reviewing response, discussion with consultants, documentation in the chart. Patient was at risk of complete respiratory failure from her condition. She required my constant care and management to help with her breathing and medical condition. (ELIDA MORAN MD) Departure Communication (Admissions) Time/Spoke to Admitting Phy: 08:15 d/w Dr. Lorenzo and reviewed that she came in with hypoxia and decreased responsiveness but saturation 100% on Oxi Mask. Labs show elevated pCO2 on ABG which might be venous, but had >130 pCO2 so even for venous specimen was elevated. No pneumonia or CXR. CT head without acute findings. Negative troponin so not seeing heart attack at this time. ECG with sinus rhythm without ST elevat ion or ischemia. Not seeing infection with her Urine clear and no pneumonia. Influenza and Covid were both negative. BiPap to try and help blow off her CO2 since it had helped when she was admitted in November 2020 for respiratory failure. Consult E-ICU to help manage care and get advice for BiPap settings. Time/Spoke to Consulting Phy: 08:19 after discussion with E-ICU attending, she recommended adjusting BiPap settings to try and get TV at least 250-300. Increased I/E settings to 18/8. She is on 100% FiO2 and rate 20. Will add in solumedrol for COPD and give Albuterol treatment as well. Repeat ABG after 30-45 minutes on BiPap. (ELIDA MORAN MD) Impression Primary Impression: Acute on chronic respiratory failure with hypoxia Additional Impressions: COPD exacerbation Hypercapnemia Decreased responsiveness Disposition: 30 STILL A PATIENT Condition: Critical Admissions Decision to Admit Reason: Admit from ER (General) Decision to Admit/Date: May 13, 2022 Time/Decision to Admit Time: 08:15 (ELIDA MORAN MD) Departure-Patient Inst. Referrals: VERNON VILLALOBOS DO (PCP/Family) Primary Care Physician ALIVIA TUCKER DO May 13, 2022 06:28 ELIDA MORAN MD May 13, 2022 08:14
[2022-05-13 06:42] LABS: BASOPHILS % (AUTO) 0 % (0-10); EOSINOPHILS % (AUTO) 0 % (0-10); HEMATOCRIT 31 % (35-52); HEMOGLOBIN 9.3 g/dL (11.5-16.0); LYMPHOCYTES # (AUTO) 0.4 10^3/uL (1.0-4.0); LYMPHOCYTES % (AUTO) 6 % (12-44); MEAN CORPUSCULAR HEMOGLOBIN 28 pg (25-34); MEAN CORPUSCULAR HGB CONC 30 g/dL (32-36); MEAN CORPUSCULAR VOLUME 94 fL (80-99); MEAN PLATELET VOLUME 10.6 fL (9.0-12.2); MONOCYTES # (AUTO) 0.3 10^3/uL (0.0-1.0); MONOCYTES % (AUTO) 5 % (0-12); NEUTROPHILS # (AUTO) 5.5 10^3/uL (1.8-7.8); NEUTROPHILS % (AUTO) 88 % (42-75); PLATELET COUNT 192 10^3/uL (130-400); WHITE BLOOD COUNT 6.2 10^3/uL (4.3-11.0)
[2022-05-13] MEDS ORDERED: NALOXONE 0.4 MG/ML 1 ML (NARCAN) VIAL ONE (06:54)
[2022-05-13] MEDS ORDERED: NALOXONE 2 MG/2 ML (NARCAN) SYR ONE (06:56)
[2022-05-13 07:02] LABS: BAND NEUTROPHILS 7 %; LYMPHOCYTES % (MANUAL) 4 %; MONOCYTES % (MANUAL) 7 %; NEUTROPHILS % (MANUAL) 82 %
[2022-05-13 07:03] LABS: ELLIPT/OVALOCYTES SLIGHT; PLATELET ESTIMATE NORMAL; POIKILOCYTOSIS SLIGHT; RBC MORPH ABNORMAL; SCHISTOCYTES SLIGHT; TOXIC GRANULATION/VACUOLAZATIO 2+
[2022-05-13 07:06] LABS: BILIRUBIN,URINE NEGATIVE (NEGATIVE); CLARITY,URINE CLEAR; COLOR,URINE YELLOW; GLUCOSE, URINE (UA) NEGATIVE (NEGATIVE); KETONES,URINE NEGATIVE (NEGATIVE); LEUKOCYTE ESTERASE ,URINE NEGATIVE (NEGATIVE); NITRITE,URINE NEGATIVE (NEGATIVE); PROTEIN,URINE TRACE (NEGATIVE)
[2022-05-13 07:11] LABS: SODIUM 137 MMOL/L (135-145)
[2022-05-13 07:12] LABS: ALANINE AMINOTRANSFERASE 10 U/L (0-55); ALKALINE PHOSPHATASE 63 U/L (40-136); BILIRUBIN,TOTAL 0.2 MG/DL (0.1-1.0); BUN/CREATININE RATIO 35; CALCIUM 9.3 MG/DL (8.5-10.1); CARBON DIOXIDE 41 MMOL/L (21-32); CHLORIDE 92 MMOL/L (98-107); CREATININE SERUM 0.68 MG/DL (0.60-1.30); GFR ESTIMATED 93; GLUCOSE 132 MG/DL (70-105); POTASSIUM 5.2 MMOL/L (3.6-5.0)
[2022-05-13 07:13] LABS: ALBUMIN 3.9 GM/DL (3.2-4.5); TOTAL PROTEIN 7.5 GM/DL (6.4-8.2)
[2022-05-13 07:14] LABS: BACTERIA,URINE NEGATIVE /HPF; GRANULAR CASTS,URINE 0-2 /LPF; SQUAMOUS EPITHELIAL CELL,UR 0-2 /HPF; WBC,URINE 0-2 /HPF
--- NOTE | 2022-05-13 07:17 | Diagnostic Imaging Report ---
EXAMINATION: Chest radiograph, portable AP view. DATE: 05/13/2022 6:58 AM INDICATION: 71-year-old female, altered mental status. COMPARISON: December 01, 2020. FINDINGS: Heart size and mediastinal contours are unchanged. There is no identified pneumothorax. There is no large pleural effusion. There is no identified interval focal airspace consolidation. IMPRESSION: 1. No identified interval acute cardiopulmonary abnormality. Dictated by: Dictated on workstation # [id number]
--- NOTE | 2022-05-13 07:25 | Diagnostic Imaging Report ---
PROCEDURE: CT head without contrast. TECHNIQUE: Multiple contiguous axial images were obtained through the brain without the use of intravenous contrast. Auto Exposure Controls were utilized during the CT exam to meet ALARA standards for radiation dose reduction. DATE: May 13, 2022. COMPARISON: None. INDICATION: 71-year-old female, shortness of breath. Altered mental status. FINDINGS: There are motion limitations on this exam. The ventricles and cerebral spinal fluid spaces are of normal size and configuration for the patient's age. There is no mass effect or midline shift. There is no acute intracranial hemorrhage. There is no abnormal extra-axial fluid collection. The visualized portions of the paranasal sinuses, mastoid air cells and middle ears are well aerated. IMPRESSION: 1. No identified acute intracranial abnormality. 2. There are some motion limitations of evaluation. Dictated by: Dictated on workstation # [id number]
[2022-05-13] MEDS ORDERED: NS IV 1000 ML 1,000 ML IV STA ×2 (07:35→09:38)
[2022-05-13 07:46] LABS: AMPHETAMINE SCREEN, URINE NEGATIVE (NEGATIVE); BARBITURATE SCREEN URINE NEGATIVE (NEGATIVE); BENZODIAZEPINES SCREEN URINE NEGATIVE (NEGATIVE); CANNABINOID SCREEN, URINE NEGATIVE (NEGATIVE); COCAINE SCREEN URINE NEGATIVE (NEGATIVE); METHADONE STAT NEGATIVE (NEGATIVE); OPIATE SCREEN URINE NEGATIVE (NEGATIVE); OXYCODONE STAT NEGATIVE (NEGATIVE); TRICYCLIC ANTIDEPRESSANTS SCRE NEGATIVE (NEGATIVE)
[2022-05-13 07:47] LABS: PROPOXYPHENE STAT NEGATIVE (NEGATIVE)
[2022-05-13] MEDS ORDERED: RT-ALBUTEROL SULF 2.5 MG/3 ML PRE-MIX VIAL INH STA (08:28)
[2022-05-13] MEDS ORDERED: methylPREDNISolone 125 MG (Solu-MEDROL) VIAL IVP STA (08:28)
[2022-05-13] MEDS ORDERED: RT-ALBUTEROL SULF 2.5 MG/3 ML PRE-MIX VIAL ONE (08:38)
[2022-05-13 11:46] VITALS: BP 162/69
--- NOTE | 2022-05-13 12:25 | History & Physical-Hospitalist ---
History of Present Illness HPI/Chief Complaint Patient is 71-year-old female who presented to the emergency department due to to mental status. She is unable to provide any history and so all history is obtained from the record. She was found confused by her family and they believe she fell off the couch but they are not certain of those details. She had a CT of her head which was negative for intracranial hemorrhage. She was hypoxic when EMS arrived with sats in the 70s. She was placed on a nonrebreather and her oxygen improved but she remained lethargic and ABG revealed profound hypercapnia with a CO2 of greater than 130. She was placed on BiPAP and transferred here to the ICU. Unfortunately in transfer she did not have CPAP so has just now been replaced on BiPAP just now. Source: patient Date Seen 05/13/22 Time Seen by a Provider: 12:25 Attending Physician Damian Hinton DO PCP Admitting Physician: Alfred Lorenzo MD Attending Physician: Alfred Lorenzo MD Referring Physician Date of Admission May 13, 2022 at 11:37 Home Medications & Allergies Home Medications Reviewed patient Home Medication Reconciliation performed by pharmacy medication reconciliations registered pharmacy technician and/or nursing. Patients Allergies have been reviewed. Allergies Allergies Coded Allergies egg (Unverified Allergy, Unknown, 12/03/20) orange (Unverified Allergy, Unknown, 12/03/20) Past Aqbjrsg-Vbwkqs-[place] Hx Patient Social History Employed/Student: retired Smoking Status: Former Smoker Use of E-Cig and/or Vaping dev: Unable to obtain Substance use?: Unable to obtain Alcohol Use?: Unable to obtain Immunizations Up To Date Tetanus Booster (TDap): Unknown Current Status status: No Communicates: Unable To Communicate Primary Language: Tanzanian Preferred Spoken Language: Tanzanian Past Medical History Asthma, COPD Coronary Artery Disease, Hypertension Diabetes, Non-Insulin dep Family Medical History Reviewed Nursing Family Hx No Pertinent Family Hx Review of Systems ROS-Unable to Obtain: lethargic Constitutional: see HPI Physical Exam Physical Exam Vital Signs Vital Signs - First Documented 05/13/22 05/13/22 05/13/22 06:15 08:17 15:04 Temp 35.6 Pulse 87 Resp 20 B/P (MAP) 111/90 (97) Pulse Ox 97 O2 Delivery Non Rebreather O2 Flow Rate 12.00 FiO2 50 Capillary Refill : Less Than 3 Seconds Height, Weight, BMI Height: '" Weight: lbs. oz. kg; 25.67 BMI Method: General Appearance: No Apparent Distress, Chronically ill HEENT: PERRL/EOMI, Moist Mucous Membranes, Other (BiPAP in place) Respiratory: No Accessory Muscle Use; No Crackles; Rhonci; No Wheezing; Other (on BiPAP) Cardiovascular: Regular Rate, Rhythm, No Murmur Gastrointestinal: Normal Bowel Sounds, Non Tender, Soft Extremity: Swelling (right lower extremity) Neurologic/Psychiatric: Alert (opens eyes and moves purposefully but did not answer questions) Results Results/Procedures Labs Laboratory Tests 05/14/22 17:15 05/15/22 04:32 05/16/22 04:15 Patient resulted labs reviewed. Imaging: Reviewed Imaging Report Imaging [facility], [place] NAME: GLO CUR[facility] REC#: [id number] PT STATUS: REG ER : 1950 PHYSICIAN: ALIVIA TUCKER DO ADMIT DATE: 05/13/22/ER FS Signed Date of Exam:05/13/22 CHEST 1 VIEW AP/PA ONLY EXAMINATION: Chest radiograph, portable AP view. DATE: 05/13/2022 6:58 AM INDICATION: 71-year-old female, altered mental status. COMPARISON: December 01, 2020. FINDINGS: Heart size and mediastinal contours are unchanged. There is no identified pneumothorax. There is no large pleural effusion. There is no identified interval focal airspace consolidation. IMPRESSION: 1. No identified interval acute cardiopulmonary abnormality. Dictated by: Dictated on workstation # [id number] Dict: 05/13/2259 Trans: 05/13/22806 [facility] [id number] Interpreted by: KASIA TORRES MD Electronically signed by: KASIA TORRES MD 05/13/22806 [facility] [place] NAME: GLO CURRIE [facility] REC#: [id number] PT STATUS: REG ER : 1950 PHYSICIAN: ALIVIA TUCKER DO ADMIT DATE: 05/13/22/ER FS Signed Date of Exam:05/13/22 CT HEAD WO-R/O STROKE PROCEDURE: CT head without contrast. TECHNIQUE: Multiple contiguous axial images were obtained through the brain without the use of intravenous contrast. Auto Exposure Controls were utilized during the CT exam to meet ALARA standards for radiation dose reduction. DATE: May 13, 2022. COMPARISON: None. INDICATION: 71-year-old female, shortness of breath. Altered mental status. FINDINGS: There are motion limitations on this exam. The ventricles and cerebral spinal fluid spaces are of normal size and configuration for the patient's age. There is no mass effect or midline shift. There is no acute intracranial hemorrhage. There is no abnormal extra-axial fluid collection. The visualized portions of the paranasal sinuses, mastoid air cells and middle ears are well aerated. IMPRESSION: 1. No identified acute intracranial abnormality. 2. There are some motion limitations of evaluation. Dictated by: Dictated on workstation # [id number] Dict: 05/13/22711 Trans: 05/13/22 08 [facility] [id number] Interpreted by: KASIA TORRES MD Electronically signed by: KASIA TORRES MD 05/13/22 0807 Assessment/Plan Admission Diagnosis Acute on chronic respiratory failure Admission Status: Inpatient Order (span 2 midnights) Reason for Inpatient Admission: see below Assessment and Plan Acute on chronic respiratory failure COPD Exacerbation with hypercapnia BiPAP currently Repeat ABG in an hour as she was off for transport Continue IV steroids TeleICU consult- appreciate recs MAT protocol HTN Resome home meds BP well controlled NIDDMII Hold metformin for now Anticipate higher blood sugars with steroids SSI CAD No acute needs, continue home meds Social situation Daughter reports to RN that patient had bed bugs in home Will consult social work DVT ppx: Lovenox Diagnosis/Problems Diagnosis/Problems (1) COPD exacerbation Status: Acute (2) Decreased responsiveness Status: Acute (3) Hypercapnemia Status: Acute (4) Essential (primary) hypertension Status: Chronic (5) Non-insulin dependent type 2 diabetes mellitus (6) Prophylactic measure (7) CAD (coronary artery disease) ALFRED LORENZO MD May 13, 2022 12:25
[2022-05-13] MEDS ORDERED: ONDANSETRON 4 MG/2 ML (SDV) Z0FRAN IV PRN (12:30)
[2022-05-13] MEDS ORDERED: ACETAMINOPHEN 325 MG TABLET PO PRN (12:30)
[2022-05-13] MEDS ORDERED: polyethylene glycoL POWDER 17 GM (MIRALAX) PACK PO PRN (12:30)
[2022-05-13] MEDS ORDERED: RT-ALBUTEROL SULF 2.5 MG/3 ML PRE-MIX VIAL INH PRN (12:30)
[2022-05-13] MEDS ORDERED: CALCIUM CARBONATE 500 MG (TUMS) TAB.CHEW PO PRN (12:30)
--- NOTE | 2022-05-13 12:33 | Tele-ICU Consult ---
History of Present Illness History of Present Illness Date Seen by Provider: May 13, 2022 Time Seen by Provider: 12:31 History of Present Illness (Tele-ICU Physician , consultation as per request of PCP Service provided via interactive audio and video telecommunications E-CARE system to a patient admitted to ICU bed in [facility]. Available chart/ vitals / labs / Images reviewed H&P is from ER notes Patient's information available about PMH, Shx, Fhx allergy reviewed inEMR. ROS as per chart and RN report Now in ICU, hemodynamically stable Video assessment done using teleICU camera, rest of exam as per RN Discussed with RN. Consultants: Hospital course: 71 y/o female with hypercarbic resp failure A/P Acute on chronic hypercarbic and hypoxic resp failure , due to AECOPD - cont NIPPV , follow abg AECOPD - cont nebs , steroids IV Acute mental status change - due to hypercarbia - follow - CTH - no acute findings , toxicology negative ID - NEG serology viral - UA and cxr negative Hyperkalemia - mild , follow DM - ISS Anemia - chronic , follow DNI as per RN report Lines : , (Central Line Necessity Reviewed) Elizalde: OG: Nutrition: Analgesia: Anxiety/ delirium VTE Prophylaxis: amalia Stress Ulcer Prophylaxis: pepcid Plans in collaboration with bedside consultants and IM MDs. Discussed with RN to reach out if any questions or concerns A total of 33 minutes of critical care time was devoted to this patient today, required to treat and/or prevent further deterioration of critical care condition ( as above ) . I am remotely monitoring this patient from another state. I am unable to do the bedside exam, and history/physical and pertinent information is taken from other notes in the computer and bedside staff. . Allergies and Home Medications Allergies Coded Allergies: egg (Unverified Allergy, Unknown, 12/03/20) orange (Unverified Allergy, Unknown, 12/03/20) Home Medications Cetirizine HCl 10 Mg Tablet, 10 MG PO DAILY, (Reported) Diclofenac Sodium 50 Mg Tablet.dr, 50 MG PO DAILY, (Reported) Diclofenac Sodium 50 Mg Tablet.dr, 50 MG PO BID PRN for INFLAMMATION, (Reported) Diltiazem HCl 120 Mg Capsule.er, 120 MG PO HS, (Reported) Fluticasone/Salmeterol 1 Each Blst.w.dev, 1 PUFF INH BID, (Reported) Hydrochlorothiazide 12.5 Mg Tablet, 6.25 MG PO DAILY, (Reported) TAKES OF A 12.5MG TAB Ipratropium/Albuterol Sulfate 3 Ml Ampul.neb, 3 ML INH Q8H PRN for SHORTNESS OF BREATH, (Reported) Lisinopril 5 Mg Tablet, 5 MG PO DAILY, (Reported) Metformin HCl 500 Mg Tablet, 250 MG PO TIDPC, (Reported) TAKES OF A 500MG TAB Prednisone 10 Mg Tab.ds.pk, 10 MG PO DAILY Take 6 tabs(60mg)daily,decrease by 1 tab(10mg)every other day. Prescribed by: KAREN TRINIDAD on 12/03/20 1236 Rosuvastatin Calcium 10 Mg Tablet, 10 MG PO HS, (Reported) Past Medical/Social/Family Hx Patient Social History Use of E-Cig and/or Vaping dev: Unable to obtain Substance use?: Unable to obtain Alcohol Use?: Unable to obtain Immunizations Up To Date Tetanus Booster (TDap): Unknown Current Status status: No Communicates: Unable To Communicate Primary Language: Taiwanese Preferred Spoken Language: Taiwanese Review of Systems Constitutional: see HPI Focused Exam Lactate Level 05/13/22 06:30: Lactic Acid Level 0.52 Height, Weight, BMI Height: '" Weight: lbs. oz. kg; 25.67 BMI Method: Exam Exam Patient acknowledged, consented, and participated in this virtual visit which was conducted using real time audio/video Vital Signs Date Time Temp Pulse Resp B/P (MAP) Pulse Ox O2 Delivery O2 Flow Rate FiO2 05/13/22 11:46 82 20 100 80.00 05/13/22 10:01 36.4 83 38 150/56 (87) 92 NIV CPAP 50.00 05/13/22 08:17 35.6 81 28 132/43 97 NIV CPAP 05/13/22 06:15 87 20 111/90 (97) Non Rebreather 12.00 Height & Weight Height: '" Weight: lbs. oz. kg; 25.67 BMI Method: General Appearance: Other (Chronically ill-appearing, moaning, ) Respiratory: Decreased Breath Sounds Cardiovascular: Regular Rate, Rhythm, No Edema Capillary Refill: Less Than 3 Seconds Neurologic/Psychiatric: Other (mild response to painful stimuli, doesnt follow commands ) Results Lab Laboratory Tests 05/13/22 06:30 Assessment/Plan Assessment/Plan 1 NIVIA MOORE MD May 13, 2022 12:33
[2022-05-13] MEDS: ENOXAPARIN 40 MG/0.4 ML (LOVENOX) SYR SC SCH (13:39)
[2022-05-13 14:26] LABS: ABG BASE EXCESS 13.4 MMOL/L (-2.5-2.5); ABG OXYGEN SATURATION 97 % (94-100); ABG PO2 95 MMHG (79-93)
[2022-05-13 14:29] LABS: ABG PCO2 118 MMHG (35-45); ABG PH 7.18 (7.37-7.43)
[2022-05-13 14:30] LABS: ABG TCO2 45.7 MMOL/L (21.0-31.0); INSPIRED O2 50%; PATIENT TEMP 36.7; VENTILATOR NO
[2022-05-13 14:37] VITALS: BP 146/55
--- NOTE | 2022-05-13 15:33 | Diagnostic Imaging Report ---
INDICATION: Right arm swelling Venous Doppler of the right upper extremity. Duplex ultrasound of the venous system right upper extremity was done with grayscale, spectral wave form and color Doppler analysis. The veins of the right upper extremity have good color filling and compressibility. There is phasic flow and normal response to augmentation. IMPRESSION: Negative venous Doppler right upper extremity. Dictated by: Dictated on workstation # [id number]
[2022-05-13] MEDS: LORazepam 0.5 MG (ATIVAN) TABLET PO PRN (16:15)
[2022-05-13] MEDS ORDERED: NS IV 1000 ML 1,000 ML ONE (17:42)
[2022-05-13] MEDS: methylPREDNISolone 125 MG (Solu-MEDROL) VIAL IV SCH (17:45)
[2022-05-13] MEDS: RT-ALBUTEROL/IPRATROPIUM 3 ML (DUONEB) VIAL IH SCH ×2 (18:56→22:44)
[2022-05-13] MEDS: DexMEDEtomidine 250 ML DRIP 250 ML IV SCH (19:55)
[2022-05-13] MEDS ORDERED: RT-ALBUTEROL/IPRATROPIUM 3 ML (DUONEB) VIAL INH PRN (21:00)
[2022-05-13] MEDS ORDERED: dilTIAZem120 MG (CARDIZEM CD) CAP PO ONE (21:35)
[2022-05-13] MEDS ORDERED: ROSUVASTATIN 10 MG (CRESTOR) TABLET ONE (21:35)
[2022-05-13] MEDS: ROSUVASTATIN 10 MG (CRESTOR) TABLET PO SCH (21:37)
[2022-05-13] MEDS ORDERED: AMIODARONE FOR BOLUS 150 MG in NS (IVPB) 100 ML IV SCH (21:52)
[2022-05-13] MEDS ORDERED: AMIODARONE (Pyxis Kit Only) BOLUS 150 MG/3 ML IV ONE (22:00)
[2022-05-13] MEDS ORDERED: AMIODARONE (Pyxis Kit Only) DRIP 450 MG/9 ML VIAL IV ONE (22:00)
[2022-05-13] MEDS ORDERED: NORMAL SALINE 250 ML ONE (22:01)
[2022-05-13] MEDS ORDERED: NS (IVPB) 100 ML ONE (22:02)
[2022-05-13] MEDS: AMIODARONE INJECTION 450 MG in NORMAL SALINE 250 ML IV SCH (22:23)
[2022-05-13 22:44] VITALS: BP 146/55
[2022-05-13 22:46] LABS: ALBUMIN 3.5 GM/DL (3.2-4.5); BILIRUBIN,DIRECT 0.1 MG/DL (0.0-0.3); BILIRUBIN,INDIRECT 0.1 MG/DL; BILIRUBIN,TOTAL 0.2 MG/DL (0.1-1.0); TOTAL PROTEIN 6.5 GM/DL (6.4-8.2)
[2022-05-14] MEDS: methylPREDNISolone 125 MG (Solu-MEDROL) VIAL IV SCH ×2 (00:56→05:27)
[2022-05-14 01:57] VITALS: BP 100/46
[2022-05-14] MEDS: RT-ALBUTEROL/IPRATROPIUM 3 ML (DUONEB) VIAL IH SCH ×6 (01:57→22:55)
[2022-05-14] MEDS ORDERED: NS IV 1000 ML 1,000 ML ONE (02:48)
[2022-05-14] MEDS ORDERED: NS IV 500 ML 500 ML ONE (02:52)
[2022-05-14] MEDS: NS IV 500 ML 500 ML IV SCH ×2 (02:53→19:49)
[2022-05-14 04:25] LABS: HEMATOCRIT 26 % (35-52); HEMOGLOBIN 7.9 g/dL (11.5-16.0); MEAN CORPUSCULAR HEMOGLOBIN 29 pg (25-34); MEAN CORPUSCULAR HGB CONC 30 g/dL (32-36); MEAN CORPUSCULAR VOLUME 95 fL (80-99); MEAN PLATELET VOLUME 10.1 fL (9.0-12.2); PLATELET COUNT 219 10^3/uL (130-400); WHITE BLOOD COUNT 7.4 10^3/uL (4.3-11.0)
[2022-05-14 04:43] LABS: POTASSIUM 4.2 MMOL/L (3.6-5.0)
[2022-05-14 04:44] LABS: CALCIUM 8.5 MG/DL (8.5-10.1)
[2022-05-14 04:49] LABS: CREATININE SERUM 0.99 MG/DL (0.60-1.30)
[2022-05-14] MEDS ORDERED: AMIODARONE (Pyxis Kit Only) DRIP 450 MG/9 ML VIAL IV ONE (05:24)
[2022-05-14] MEDS ORDERED: NORMAL SALINE 250 ML ONE (05:25)
[2022-05-14] MEDS: AMIODARONE INJECTION 450 MG in NORMAL SALINE 250 ML IV SCH (05:50)
[2022-05-14] MEDS: LORazepam 0.5 MG (ATIVAN) TABLET PO PRN ×3 (08:06→22:37)
[2022-05-14] MEDS: PANTOPRAZOLE 40 MG (PROTONIX) VIAL IV SCH (08:06)
--- NOTE | 2022-05-14 08:17 | Consultation-Cardiology ---
HPI-Cardiology Cardiology Consultation Date of Consultation 05/14/22 Date of Admission Time Seen by Provider: 08:12 Indication: Acute respiratory failure HPI 71-year-old lady with a history of coronary artery disease, COPD, oxygen dependent, had change in mental status, was admitted for acute respiratory failure, being treated for pneumonia Overnight she became tachycardic with a heart rate around 150, responded to amiodarone drip, currently heart rate is regular and she is in sinus rhythm. She denies any chest pain or palpitation, has been following with a blasting miner in [facility] Medications & Allergies Allergies: Coded Allergies: egg (Unverified Allergy, Unknown, 12/03/20) orange (Unverified Allergy, Unknown, 12/03/20) Home Medication List Reviewed: Yes CZG-[id number]-Ptqxnq Hx Patient Social History Marital Status: Employed/Student: retired Smoking Status: Former Smoker Have you traveled recently?: No Alcohol Use?: No Past Medical History Discussed below Family Medical History Significant Family History: No Pertinent Family Hx Review of Systems-General Review of Systems Constitutional: see HPI, chills, malaise EENTM: see HPI, no symptoms reported Respiratory: no symptoms reported, see HPI, cough, dyspnea on exertion Cardiovascular: see HPI; No chest pain; edema; No Hx of Intervention, No palpitations, No syncope, No vascular heart diseas, No other Gastrointestinal: no symptoms reported, see HPI Genitourinary: no symptoms reported, see HPI Musculoskeletal: no symptoms reported, see HPI Skin: no symptoms reported, see HPI Psychiatric/Neurological: See HPI, Emotional Problems Reviewed Test Results Reviewed Test Results Lab Laboratory Tests Test 05/13/22 08:45 05/13/22 14:18 05/13/22 22:15 05/14/22 03:57 Range/Units Bedside Blood Gas pH (LAB) 7.093 *L 7.310-7.410 Bedside Blood Gas pCO2 (LAB) > 130.0 *H 41.0-51.0 mmHg Bedside Blood Gas pO2 (LAB) 407 H 80-105 mmHg Bedside Blood Gas HCO3 (LAB) 23.0-28.0 mmol/L POC Blood Gas Total CO2 Calc 24-29 mmol/L Bedside Bl Gas O2 Saturation (Calc) 95-98 % Bedside Arterial Blood Base Excess -2-3 mmol/L Blood Gas Puncture Site LT RAD Blood Gas Patient Temperature 36.7 Arterial Blood pH 7.18 *L 7.37-7.43 Arterial Blood Partial Pressure CO2 118 *H 35-45 MMHG Arterial Blood Partial Pressure O2 95 H 79-93 MMHG Arterial Blood HCO3 42 *H 23-27 MMOL/L Arterial Blood Total CO2 45.7 *H 21.0-31.0 MMOL/L Arterial Blood Oxygen Saturation 97 94-100 % Arterial Blood Base Excess 13.4 H -2.5-2.5 MMOL/L Toan Test NA Blood Gas Ventilator Setting NO Blood Gas Inspired Oxygen 50% Total Bilirubin 0.2 0.1-1.0 MG/DL Direct Bilirubin 0.1 0.0-0.3 MG/DL Indirect Bilirubin 0.1 MG/DL Aspartate Amino Transf (AST/SGOT) 16 5-34 U/L Alanine Aminotransferase (ALT/SGPT) 11 0-55 U/L Alkaline Phosphatase 53 40-136 U/L Total Protein 6.5 6.4-8.2 GM/DL Albumin 3.5 3.2-4.5 GM/DL Thyroid Stimulating Hormone (TSH) 0.39 0.35-4.94 UIU/ML White Blood Count 7.4 4.3-11.0 10^3/uL Red Blood Count 2.75 L 3.80-5.11 10^6/uL Hemoglobin 7.9 L 11.5-16.0 g/dL Hematocrit 26 L 35-52 % Mean Corpuscular Volume 95 80-99 fL Mean Corpuscular Hemoglobin 29 25-34 pg Mean Corpuscular Hemoglobin Concent 30 L 32-36 g/dL Red Cell Distribution Width 12.6 10.0-14.5 % Platelet Count 219 130-400 10^3/uL Mean Platelet Volume 10.1 9.0-12.2 fL Sodium Level 137 135-145 MMOL/L Potassium Level 4.2 3.6-5.0 MMOL/L Chloride Level 93 L 98-107 MMOL/L Carbon Dioxide Level 33 H 21-32 MMOL/L Anion Gap 11 5-14 MMOL/L Blood Urea Nitrogen 37 H 7-18 MG/DL Creatinine 0.99 0.60-1.30 MG/DL Estimat Glomerular Filtration Rate 61 BUN/Creatinine Ratio 37 Glucose Level 151 H 70-105 MG/DL Calcium Level 8.5 8.5-10.1 MG/DL Physical Exam Physical Exam Vital Signs Vital Signs - First Documented 05/13/22 05/13/22 05/13/22 06:15 08:17 15:04 Temp 35.6 Pulse 87 Resp 20 B/P (MAP) 111/90 (97) Pulse Ox 97 O2 Delivery Non Rebreather O2 Flow Rate 12.00 FiO2 50 Capillary Refill : Less Than 3 Seconds Height, Weight, BMI Height: '" Weight: lbs. oz. kg; 31.53 BMI Method: General Appearance: No Apparent Distress, Chronically ill Eyes: Bilateral Eye Other (Approximately 2 mm and sluggish) HEENT: PERRL/EOMI, Moist Mucous Membranes, Other (BiPAP in place) Neck: Full Range of Motion, Normal Inspection, Non Tender, Supple, Carotid Bruit Respiratory: No Accessory Muscle Use; No Crackles; Rhonci, Wheezing, Other (on BiPAP) Cardiovascular: Regular Rate, Rhythm, No Murmur Gastrointestinal: Normal Bowel Sounds, Non Tender, Soft Back: Normal Inspection, No CVA Tenderness, No Vertebral Tenderness Extremity: Swelling (right lower extremity) Neurologic/Psychiatric: Alert (opens eyes and moves purposefully but did not answer questions) Skin: Normal Color, Warm/Dry Lymphatic: No Adenopathy A/P-Cardiology Admission Diagnosis Acute respiratory failure Acute change in mental status Sinus tachycardia Anemia Assessment/Plan Acute respiratory failure, acute exacerbation of COPD Baseline oxygen dependent at home, currently on Vapotherm Managed by medical team Acute change in mental status, confusion. Probably secondary to hypoxemia, currently mental status is better, able to respond appropriately Transient episode of tachycardia with a heart rate 150, she was started on amiodarone drip, in sinus rhythm at this time Did not have any history of atrial fibrillation, I will stop amiodarone drip and continue to monitor Coronary artery disease, history of stenting done in [facility] about 10 years ago. Had a stress test recently. Continue to monitor, evaluate EKG Hypertension, maintained on Cardizem CD. Restart and monitor blood pressure Anemia, worsening H&H, monitor for acute blood loss. NAE FORD MD May 14, 2022 08:17
--- NOTE | 2022-05-14 09:40 | Progress Note - Hospitalist ---
Subjective HPI/CC On Admission Date Seen by Provider: May 14, 2022 Patient is 71-year-old female who presented to the emergency department due to to mental status. She is unable to provide any history and so all history is obtained from the record. She was found confused by her family and they believe she fell off the couch but they are not certain of those details. She had a CT of her head which was negative for intracranial hemorrhage. She was hypoxic when EMS arrived with sats in the 70s. She was placed on a nonrebreather and her oxygen improved but she remained lethargic and ABG revealed profound hypercapnia with a CO2 of greater than 130. She was placed on BiPAP and transferred here to the ICU. Unfortunately in transfer she did not have CPAP so has just now been replaced on BiPAP just now. Subjective/Events-last exam pt reports feeling better today. Much more alert and awake. No complaints. Wondering if she'll need more oxygen or NIPPV upon discharge and informed her that we need to be closer to [place] to see. At first she was hesitant to that but was agreeable eventually if needed. Focused Exam Lactate Level Objective Exam Vital Signs Vital Signs Date Time Temp Pulse Resp B/P (MAP) Pulse Ox O2 Delivery O2 Flow Rate FiO2 05/16/22 09:14 NIV Bilevel 50.00 05/16/22 09:06 87 55 05/16/22 09:00 92 163/70 (101) 05/16/22 08:00 14 05/16/22 07:59 36.3 Capillary Refill : Less Than 3 Seconds General Appearance: No Apparent Distress, Chronically ill, Obese Respiratory: Lungs Clear, No Accessory Muscle Use Cardiovascular: Regular Rate, Rhythm, No Murmur Gastrointestinal: Normal Bowel Sounds, Soft Neurologic/Psychiatric: Alert, Oriented x3 Results/Procedures Lab Laboratory Tests 05/16/22 04:15 Patient resulted labs reviewed. Imaging: Reviewed Imaging Report Assessment/Plan Assessment and Plan Assess & Plan/Chief Complaint Acute on chronic respiratory failure COPD Exacerbation with hypercapnia Off BiPAP and now on Vapotherm Will need further testing to see if she needs NIPPV at home Continue IV steroids TeleICU consult- appreciate recs MAT protocol Tachycardia placed on amiodarone gtt overnight NO known history of a fib cardiology consulted, appreciat recs HTN BP well controlled NIDDMII Hold metformin for now Anticipate higher blood sugars with steroids SSI BS well controlled CAD No acute needs, continue home meds Social situation Daughter reports to RN that patient had bed bugs in home Will consult social work DVT ppx: Lovenox Diagnosis/Problems Diagnosis/Problems (1) COPD exacerbation Status: Acute (2) Decreased responsiveness Status: Acute (3) Hypercapnemia Status: Acute (4) Essential (primary) hypertension Status: Chronic (5) Non-insulin dependent type 2 diabetes mellitus (6) Prophylactic measure (7) CAD (coronary artery disease) ALFRED SANFORD MD May 14, 2022 09:40
[2022-05-14] MEDS ORDERED: dilTIAZem120 MG (CARDIZEM CD) CAP PO SCH ×2 (10:00→21:00)
[2022-05-14] MEDS: RT--FLUTICASONE/SALMETEROL 113-14 (AIRDUO RespiCLICK) IH SCH ×2 (10:53→23:58)
--- NOTE | 2022-05-14 12:09 | Tele-ICU Progress Note ---
Subjective Date Seen by a Provider: May 14, 2022 Time Seen by a Provider: 12:09 Subjective/Events-last exam (Tele-ICU Physician , Progress Note ) Service provided via interactive audio and video telecommunications E-CARE system to a patient admitted to ICU bed in [facility]. Available chart/ vitals / labs / Images reviewed Video assessment done using teleICU camera, rest of exam as per RN Discussed with RN Events overnight : Afebrile hemodynamically stable Respiratory - I/O = Drips: Pressors- no Consultants: Hospital course: Patient is seen today due to persistent resp failure Consultants: kayla Hospital course: 05/13 71 y/o female with hypercarbic resp failure BIPAP 17/10 05/14- VT 25L 45 % A/P Acute on chronic hypercarbic and hypoxic resp failure , due to AECOPD - cont NIPPV, ABG improved VT 25L 45 % today , AAO - monitor clinically ( check abg if more somnolent , or am tomorrow A fib RVR 05/13 - started on amio , now on cardizem gtt ? - as per cards - AC as per cards AECOPD - cont nebs , steroids IV stopped 05/14 Acute mental status change - due to hypercarbia - follow - CTH - no acute findings , toxicology negative ID - NEG serology viral - UA and cxr negative Hyperkalemia - mild , follow DM - ISS Edema RUE -US VENOUS UPPER EXT RT- neg for DVT 05/13 Anemia - chronic - Hb drop 05/14 - possible delutionsl - follow DNI as per RN report Lines : periph , (Central Line Necessity Reviewed) Elizalde: + OG: Nutrition: po Analgesia: Anxiety/ delirium VTE Prophylaxis: amalia 40 - ON HOLD 05/14 with anemia Stress Ulcer Prophylaxis: PPI - on steroids Plans in collaboration with bedside consultants and IM MDs. Discussed with RN to reach out if any questions or concerns A total of 31 minutes of critical care time was devoted to this patient today, required to treat and/or prevent further deterioration of critical care co ndition ( as above ) . I am remotely monitoring this patient from another state. I am unable to do the bedside exam, and history/physical and pertinent information is taken from other notes in the computer and bedside staff. . Sepsis Event Evaluation Height, Weight, BMI Height: '" Weight: lbs. oz. kg; 31.53 BMI Method: Focused Exam Lactate Level 05/13/22 06:30: Lactic Acid Level 0.52 Exam Exam Patient acknowledged, consented, and participated in this virtual visit which was conducted using real time audio/video Vital Signs Date Time Temp Pulse Resp B/P (MAP) Pulse Ox O2 Delivery O2 Flow Rate FiO2 05/14/22 11:30 Vapotherm 20.00 40.00 05/14/22 10:53 95 Vapotherm 20.00 40 05/14/22 10:00 78 24 121/55 (77) 96 Vapotherm 25.00 45.00 05/14/22 09:00 87 26 140/81 (100) 94 Vapotherm 25.00 45.00 05/14/22 08:30 Vapotherm 25.00 45.00 05/14/22 08:00 95 Vapotherm 25.00 55 05/14/22 08:00 80 32 118/78 (91) 99 Vapotherm 25.00 55.00 05/14/22 07:25 Vapotherm 25.00 55.00 05/14/22 07:22 79 05/14/22 07:22 100 Vapotherm 25.00 55 05/14/22 07:00 81 17 139/63 (88) 100 Vapotherm 25.00 65.00 05/14/22 06:00 76 24 141/65 (90) 99 NIV Bilevel 40.00 05/14/22 05:00 75 22 115/53 (73) 98 NIV Bilevel 40.00 05/14/22 04:00 80 18 131/64 (86) 95 NIV Bilevel 40.00 05/14/22 04:00 95 NIV Bilevel 40 05/14/22 03:00 78 21 128/58 (81) 97 NIV Bilevel 40.00 05/14/22 02:15 75 23 103/51 (68) 97 05/14/22 02:00 76 16 120/54 (76) 95 05/14/22 01:57 75 29 96 40.00 05/14/22 01:45 73 20 100/46 (64) 96 05/14/22 01:30 77 21 102/46 (64) 96 05/14/22 01:15 75 20 99/47 (64) 96 05/14/22 01:00 81 25 119/57 (77) 95 05/14/22 01:00 80 05/14/22 00:47 79 112/51 05/14/22 00:45 80 16 112/51 (71) 97 05/14/22 00:30 79 24 108/53 (71) 96 05/14/22 00:15 80 20 116/59 (78) 96 05/14/22 00:00 97 NIV Bilevel 40 05/14/22 00:00 36.1 05/14/22 00:00 82 15 113/97 (102) 92 05/13/22 23:45 78 22 87/50 (62) 95 05/13/22 23:30 78 23 100/50 (67) 95 05/13/22 23:15 78 22 90/46 (61) 95 05/13/22 23:00 125 16 88/51 (63) 97 NIV Bilevel 40.00 05/13/22 22:45 125 25 92/59 (70) 96 05/13/22 22:44 125 25 96 40.00 05/13/22 22:30 125 26 87/57 (67) 94 05/13/22 22:20 122 98/55 05/13/22 22:15 131 24 95/66 (76) 99 05/13/22 22:10 140 109/74 05/13/22 22:00 138 37 112/70 (84) 98 NIV Bilevel 40.00 05/13/22 21:45 138 23 103/52 (69) 97 05/13/22 21:37 138 98/55 05/13/22 21:36 134 28 98/55 (69) 98 NIV Bilevel 40.00 05/13/22 21:15 137 25 94/38 (56) 98 05/13/22 21:00 141 27 103/52 (69) 97 NIV Bilevel 40.00 05/13/22 20:45 141 19 86/55 (65) 97 05/13/22 20:30 142 26 87/53 (64) 96 05/13/22 20:15 147 29 116/62 (80) 96 05/13/22 20:00 95 NIV Bilevel 40 05/13/22 20:00 147 27 86/55 (65) 94 NIV Bilevel 40.00 05/13/22 19:57 36.5 147 24 114/72 (86) 94 NIV Bilevel 40.00 05/13/22 19:55 147 114/72 05/13/22 19:45 149 28 114/72 (86) 94 05/13/22 19:30 146 25 109/64 (79) 93 05/13/22 19:15 146 25 112/69 (83) 91 05/13/22 19:00 141 05/13/22 19:00 141 26 114/72 (86) 98 NIV Bilevel 50.00 05/13/22 18:56 96 Vapotherm 25.00 65 05/13/22 18:00 141 18 96/69 (78) 100 NIV Bilevel 50.00 05/13/22 17:30 Vapotherm 25.00 65.00 05/13/22 17:26 96 Vapotherm 25.00 65 05/13/22 17:00 142 15 116/78 (91) 98 NIV Bilevel 50.00 05/13/22 16:30 36.1 05/13/22 16:00 134 31 106/57 (73) 99 NIV Bilevel 50.00 05/13/22 15:59 NIV Bilevel 50.00 05/13/22 15:04 NIV Bilevel 50 05/13/22 15:00 84 31 136/120 (125) 88 NIV Bilevel 50.00 05/13/22 14:37 77 29 97 35.00 05/13/22 13:29 72 05/13/22 13:00 70 18 122/49 (73) 96 NIV Bilevel 50.00 I & O 05/14/22 07:00 Intake Total 3283 ml Output Total 460 ml Balance 2823 ml Height & Weight Height: '" Weight: lbs. oz. kg; 31.53 BMI Method: General Appearance: No Apparent Distress, Chronically ill, Obese HEENT: PERRL/EOMI, Moist Mucous Membranes, Other (BiPAP in place) Neck: Full Range of Motion, Normal Inspection, Non Tender, Supple, Carotid Bruit Respiratory: Lungs Clear, No Accessory Muscle Use Cardiovascular: Regular Rate, Rhythm, No Murmur Capillary Refill: Less Than 3 Seconds Extremity: Swelling (right lower extremity) Neurologic/Psychiatric: Alert, Oriented x3 Skin: Normal Color, Warm/Dry Lymphatic: No Adenopathy Results Lab Laboratory Tests 05/13/22 06:30 05/14/22 03:57 Assessment/Plan Assessment/Plan 1 NIVIA MOORE MD May 14, 2022 12:09
[2022-05-14] MEDS: inSUlin ASPART (NovoLOG) 1 UNIT/0.01 ML (CHARGE PER UNIT) SC SCH ×3 (13:40→22:11)
[2022-05-14] MEDS: ENOXAPARIN 40 MG/0.4 ML (LOVENOX) SYR SC SCH (13:40)
[2022-05-14] MEDS ORDERED: predniSONE 20 MG TAB PO NR (15:00)
[2022-05-14 17:22] LABS: HEMOGLOBIN 7.5 g/dL (11.5-16.0)
[2022-05-14] MEDS: metFORMIN 500 MG (GLUCOPHAGE) TAB PO SCH (18:12)
[2022-05-14] MEDS ORDERED: NS IV 500 ML 500 ML IV PRN (19:45)
[2022-05-14] MEDS: ROSUVASTATIN 10 MG (CRESTOR) TABLET PO SCH (19:49)
[2022-05-15] MEDS: RT-ALBUTEROL/IPRATROPIUM 3 ML (DUONEB) VIAL IH SCH ×6 (02:25→22:04)
[2022-05-15 04:44] LABS: HEMATOCRIT 24 % (35-52); HEMOGLOBIN 7.4 g/dL (11.5-16.0); MEAN CORPUSCULAR HEMOGLOBIN 28 pg (25-34); MEAN CORPUSCULAR HGB CONC 31 g/dL (32-36); MEAN CORPUSCULAR VOLUME 91 fL (80-99); MEAN PLATELET VOLUME 9.8 fL (9.0-12.2); PLATELET COUNT 208 10^3/uL (130-400); WHITE BLOOD COUNT 6.1 10^3/uL (4.3-11.0)
[2022-05-15 05:18] LABS: CALCIUM 8.5 MG/DL (8.5-10.1); CREATININE SERUM 0.85 MG/DL (0.60-1.30); MAGNESIUM 2.2 MG/DL (1.6-2.4); PHOSPHORUS 3.6 MG/DL (2.3-4.7); POTASSIUM 4.2 MMOL/L (3.6-5.0)
[2022-05-15] MEDS: POTASSIUM CL 10MEQ/50ML IVPB 50 ML IV SCH (05:21)
[2022-05-15] MEDS: MAGNESIUM 1 GM/100 ML IVPB 100 ML IV SCH (05:22)
[2022-05-15] MEDS: KCL 20 MEQ TAB (K-DUR) PO SCH (05:22)
[2022-05-15] MEDS: inSUlin ASPART (NovoLOG) 1 UNIT/0.01 ML (CHARGE PER UNIT) SC SCH ×4 (05:23→21:00)
[2022-05-15] MEDS: predniSONE 20 MG TAB PO SCH (05:53)
[2022-05-15] MEDS: metFORMIN 500 MG (GLUCOPHAGE) TAB PO SCH ×3 (08:04→17:23)
[2022-05-15] MEDS: dilTIAZem120 MG (CARDIZEM CD) CAP PO SCH (08:04)
[2022-05-15] MEDS: PANTOPRAZOLE 40 MG (PROTONIX) VIAL IV SCH (08:04)
--- NOTE | 2022-05-15 08:09 | Diagnostic Imaging Report ---
EXAM: US VENOUS LOWER EXT RT INDICATION: Right lower extremity swelling. COMPARISON: None. TECHNIQUE: Duplex, foreman-scale and color-flow imaging of the right lower extremity venous system was performed FINDINGS: The right common femoral vein, superficial femoral vein, profunda femoris, and popliteal veins are normal. These vessels show normal compressibility, color flow, and doppler augmentation. The deep calf veins demonstrate no distinct intraluminal thrombus where seen. IMPRESSION: No evidence of deep venous thrombosis in the right lower extremity. Dictated by: Dictated on workstation # [id number]
--- NOTE | 2022-05-15 09:15 | Progress Note - Hospitalist ---
Subjective HPI/CC On Admission Date Seen by Provider: May 15, 2022 Patient is 71-year-old female who presented to the emergency department due to to mental status. She is unable to provide any history and so all history is obtained from the record. She was found confused by her family and they believe she fell off the couch but they are not certain of those details. She had a CT of her head which was negative for intracranial hemorrhage. She was hypoxic when EMS arrived with sats in the 70s. She was placed on a nonrebreather and her oxygen improved but she remained lethargic and ABG revealed profound hypercapnia with a CO2 of greater than 130. She was placed on BiPAP and transferred here to the ICU. Unfortunately in transfer she did not have CPAP so has just now been replaced on BiPAP just now. Subjective/Events-last exam Pt reports feeling much better. No complaints. Apologized for yelling at staff when she came in because she was confused. Focused Exam Lactate Level 05/13/22 06:30: Lactic Acid Level 0.52 Objective Exam Vital Signs Vital Signs Date Time Temp Pulse Resp B/P (MAP) Pulse Ox O2 Delivery O2 Flow Rate FiO2 05/15/22 08:00 86 18 120/60 (80) 94 Vapotherm 25.00 55.00 05/15/22 07:29 37.1 05/15/22 06:54 55 Capillary Refill : Less Than 3 Seconds General Appearance: No Apparent Distress, Chronically ill, Obese Respiratory: Lungs Clear, No Accessory Muscle Use, Other (on Vapotherm) Cardiovascular: Regular Rate, Rhythm, No Murmur Gastrointestinal: Normal Bowel Sounds, Soft Neurologic/Psychiatric: Alert, Oriented x3 Results/Procedures Lab Laboratory Tests 05/14/22 17:15 05/15/22 04:32 Patient resulted labs reviewed. Imaging: Reviewed Imaging Report Assessment/Plan Assessment and Plan Assess & Plan/Chief Complaint Acute on chronic respiratory failure COPD Exacerbation with hypercapnia BiPAP HS and now on Vapotherm Will need further testing to see if shee needs BiPAP at night Continue steroids TeleICU consult- appreciate recs MAT protocol Try to transfer out of ICU this afternoon if doing well Tachycardia No known history of a fib cardiology consulted, appreciat recs Anemia- POA Hgb 9.3 to 7.4 FOBT negative Trend HTN BP well controlled NIDDMII Hold metformin for now Anticipate higher blood sugars with steroids SSI BS well controlled CAD No acute needs, continue home meds Social situation Daughter reports to RN that patient had bed bugs in home Will consult social work DVT ppx: Lovenox Diagnosis/Problems Diagnosis/Problems (1) COPD exacerbation Status: Acute (2) Decreased responsiveness Status: Acute (3) Hypercapnemia Status: Acute (4) Essential (primary) hypertension Status: Chronic (5) Non-insulin dependent type 2 diabetes mellitus (6) Prophylactic measure (7) CAD (coronary artery disease) ALFRED SANFORD MD May 15, 2022 09:15
[2022-05-15] MEDS: ENOXAPARIN 40 MG/0.4 ML (LOVENOX) SYR SC SCH (09:16)
--- NOTE | 2022-05-15 09:25 | Tele-ICU Progress Note ---
Subjective Date Seen by a Provider: May 15, 2022 Time Seen by a Provider: 09:25 Subjective/Events-last exam (Tele-ICU Physician , Progress Note ) Service provided via interactive audio and video telecommunications E-CARE system to a patient admitted to ICU bed in [facility]. Available chart/ vitals / labs / Images reviewed Video assessment done using teleICU camera, rest of exam as per RN Discussed with RN Events overnight : Afebrile hemodynamically stable Respiratory - VT 25L 55% I/O = Drips: Pressors- no Patient is seen today due to persistent resp failure Consultants: kayla Hospital course: 05/13 71 y/o female with hypercarbic resp failure BIPAP 17/10 05/14- VT 25L 45 % 05/15-VT 25L 55% A/P Acute on chronic hypercarbic and hypoxic resp failure , due to AECOPD - cont NIPPV, ABG improved VT 25L 35 % today , AAO - monitor clinically ( check abg if more somnolent A fib RVR 05/13- SINUS now - started on amio , now on cardizem PO - AC as per cards Bacteremia with Coag neg staph vs comtaminamt - cx pending , to repeat 05/15 -- NEG serology viral - UA and cxr negative -off abx AECOPD - cont nebs , steroids IV stopped 05/14 = on po prednisone 40 Acute mental status change - due to hypercarbia - follow - CTH - no acute findings , toxicology negative Hyperkalemia - mild , follow DM - ISS Edema RUE and RUE -US VENOUS UPPER EXT RT- neg for DVT 05/13 , neg for DVT RLE 05/15 Anemia - chronic - Hb drop 05/14 - possible delutionsl - follow DNI as per RN report Lines : periph , (Central Line Necessity Reviewed) Elizalde: + OG: Nutrition: po Analgesia: Anxiety/ delirium VTE Prophylaxis: amalia 40 - ON HOLD 05/14 with anemia Stress Ulcer Prophylaxis: PPI - on steroids Plans in collaboration with bedside consultants and IM MDs. Discussed with RN to reach out if any questions or concerns A total of 31 minutes of critical care time was devoted to this patient today, required to treat and/or prevent further deterioration of critical care condition ( as above ) . I am remotely monitoring this patient from another state. I am unable to do the bedside exam, and history/physical and pertinent information is taken from other notes in the computer and bedside staff. . Sepsis Event Evaluation Height, Weight, BMI Height: '" Weight: lbs. oz. kg; 31.53 BMI Method: Focused Exam Lactate Level 05/13/22 06:30: Lactic Acid Level 0.52 Exam Exam Patient acknowledged, consented, and participated in this virtual visit which was conducted using real time audio/video Vital Signs Date Time Temp Pulse Resp B/P (MAP) Pulse Ox O2 Delivery O2 Flow Rate FiO2 05/15/22 09:00 92 26 125/57 (79) 93 Vapotherm 25.00 55.00 05/15/22 08:00 86 18 120/60 (80) 94 Vapotherm 25.00 55.00 05/15/22 07:29 37.1 05/15/22 07:00 84 05/15/22 07:00 80 21 113/51 (71) 97 Vapotherm 25.00 55.00 05/15/22 06:54 99 Vapotherm 25.00 55 05/15/22 05:51 85 15 138/71 (93) 92 Vapotherm 25.00 55.00 05/15/22 04:17 37.2 NIV Bilevel 40.00 05/15/22 04:00 83 24 127/58 (81) 93 NIV Bilevel 40.00 05/15/22 04:00 97 NIV Bilevel 40 05/15/22 03:00 80 22 105/48 (67) 95 NIV Bilevel 40.00 05/15/22 02:26 97 Vapotherm 25.00 55 05/15/22 02:00 76 26 112/51 (71) 98 NIV Bilevel 40.00 05/15/22 01:00 75 24 143/79 (100) 98 NIV Bilevel 40.00 05/15/22 01:00 75 05/15/22 00:10 36.5 83 19 125/48 (73) 97 NIV Bilevel 40.00 05/15/22 00:00 97 NIV Bilevel 40 05/14/22 23:00 76 24 122/60 (80) 97 NIV Bilevel 40.00 05/14/22 22:55 77 25 95 40.00 05/14/22 22:00 76 21 110/66 (81) 96 NIV Bilevel 40.00 05/14/22 22:00 79 16 110/66 (81) 96 NIV Bilevel 40.00 05/14/22 21:00 80 26 110/52 (71) 97 NIV Bilevel 40.00 05/14/22 20:52 NIV Bilevel 40.00 05/14/22 20:00 36.1 05/14/22 20:00 98 Vapotherm 25.00 55 05/14/22 20:00 85 17 124/56 (78) 97 Vapotherm 20.00 40.00 05/14/22 19:00 82 05/14/22 19:00 80 25 106/92 (97) 98 Vapotherm 20.00 40.00 05/14/22 18:48 92 Vapotherm 25.00 55 05/14/22 18:00 80 27 105/48 (67) 98 Vapotherm 20.00 40.00 05/14/22 17:00 85 14 109/49 (69) 98 Vapotherm 20.00 40.00 05/14/22 16:00 84 25 101/46 (64) 96 Vapotherm 20.00 40.00 05/14/22 16:00 36.8 05/14/22 15:01 95 Vapotherm 30.00 65 05/14/22 15:00 84 14 114/55 (74) 97 Vapotherm 20.00 40.00 05/14/22 14:48 92 Vapotherm 30.00 65 05/14/22 14:00 80 26 108/45 (66) 94 Vapotherm 20.00 40.00 05/14/22 13:30 83 25 98/41 (60) 95 Vapotherm 20.00 40.00 05/14/22 13:00 92 16 63/49 (54) 92 Vapotherm 20.00 40.00 05/14/22 12:18 91 05/14/22 12:00 91 28 122/56 (78) 89 Vapotherm 20.00 40.00 05/14/22 12:00 95 Vapotherm 25.00 45 05/14/22 12:00 36.0 05/14/22 11:30 Vapotherm 20.00 40.00 05/14/22 11:00 84 16 116/59 (78) 92 Vapotherm 25.00 45.00 05/14/22 10:53 95 Vapotherm 20.00 40 05/14/22 10:00 78 24 121/55 (77) 96 Vapotherm 25.00 45.00 I & O 05/15/22 07:00 Intake Total 2135 ml Output Total 990 ml Balance 1145 ml Height & Weight Height: '" Weight: lbs. oz. kg; 31.53 BMI Method: General Appearance: No Apparent Distress, Chronically ill, Obese HEENT: PERRL/EOMI, Moist Mucous Membranes, Other (BiPAP in place) Neck: Full Range of Motion, Normal Inspection, Non Tender, Supple, Carotid Bruit Respiratory: Lungs Clear, No Accessory Muscle Use, Other (on Vapotherm) Cardiovascular: Regular Rate, Rhythm, No Murmur Capillary Refill: Less Than 3 Seconds Extremity: Swelling (right lower extremity) Neurologic/Psychiatric: Alert, Oriented x3 Skin: Normal Color, Warm/Dry Lymphatic: No Adenopathy Results Lab Laboratory Tests 05/14/22 03:57 05/14/22 17:15 05/15/22 04:32 Assessment/Plan Assessment/Plan 1 NIVIA MOORE MD May 15, 2022 09:25
--- NOTE | 2022-05-15 09:31 | Cardiology Progress Note ---
Subjective Date Seen by Provider: May 15, 2022 Time Seen by Provider: 09:30 Subjective/Events-last exam Patient was seen at bedside, still on Vapotherm. Review of Systems General: No Chills, No Night Sweats; Fatigue; No Malaise, No Appetite, No Other HEENT: No Head Aches, No Visual Changes, No Eye Pain, No Ear Pain, No Dysphasia, No Sinus Congestion, No Post Nasal Drip, No Sore Throat, No Other Pulmonary: Dyspnea; No Cough, No Pleuritic Chest Pain, No Other Cardiovascular: No: Chest Pain, Palpitations, Orthopnea, Paroxysmal Noc. Dyspnea, Edema, Lt Headedness, Other Focused Exam Lactate Level 05/13/22 06:30: Lactic Acid Level 0.52 Objective-Cardiology Exam Last Set of Vital Signs Vital Signs 05/15/22 05/15/22 05/15/22 06:54 07:29 09:00 Temp 37.1 Pulse 92 Resp 26 B/P (MAP) 125/57 (79) Pulse Ox 93 O2 Delivery Vapotherm O2 Flow Rate 25.00 55.00 FiO2 55 I&O Intake and Output 05/15/22 00:00 Intake Total 2634 ml Output Total 790 ml Balance 1844 ml Intake Oral 1875 ml IV Total 759 ml Output Urine Total 790 ml General: Alert, Cooperative HEENT: Atraumatic, PERRLA Neck: Supple, No JVD, No Thyromegaly Lungs: Normal Air Movement, Other (Bilateral rhonchi) Heart: Regular Rate, Normal S1, Normal S2, No Murmurs Abdomen: Normal Bowel Sounds, Soft, No Tenderness, No Hepatosplenomegaly, No Masses Extremities: No Clubbing, No Cyanosis, No Edema, Normal Pulses, No Tenderness/Swelling Skin: No Rashes, No Breakdown, No Significant Lesion Neuro: Normal Gait, Normal Speech, Strength at 5/5 X4 Ext, Normal Tone, Sensation Intact Psych/Mental Status: Mental Status NL, Mood NL Results Lab Laboratory Tests 05/14/22 17:15 05/15/22 04:32 A/P-Cardiology Admission Diagnosis Acute respiratory failure Acute change in mental status Sinus tachycardia Anemia Assessment/Plan Acute respiratory failure, acute exacerbation of COPD Baseline oxygen dependent at home, currently on Vapotherm Managed by medical team Acute change in mental status, confusion. Probably secondary to hypoxemia, currently mental status is better, able to respond appropriately Transient episode of tachycardia with a heart rate 150, she was started on amiodarone drip, in sinus rhythm at this time Did not have any history of atrial fibrillation, I have discontinued amiodarone, continue to monitor for now. No changes are recommended Coronary artery disease, history of stenting done in [facility] about 10 years ago. Had a stress test recently. Continue to monitor, evaluate EKG Hypertension, maintained on Cardizem CD. Restart and monitor blood pressure Anemia, monitor H&H Stool for occult blood was negative Managed by primary care team NAE FORD MD May 15, 2022 09:31
[2022-05-15] MEDS: NS IV 500 ML 500 ML IV SCH (11:51)
[2022-05-15] MEDS: RT--FLUTICASONE/SALMETEROL 113-14 (AIRDUO RespiCLICK) IH SCH ×2 (14:27→22:02)
[2022-05-15] MEDS: LORazepam 0.5 MG (ATIVAN) TABLET PO PRN (21:25)
[2022-05-15] MEDS: MELATONIN 3 MG TABLET PO PRN (21:25)
[2022-05-15] MEDS: ROSUVASTATIN 10 MG (CRESTOR) TABLET PO SCH (21:25)
[2022-05-16] MEDS: RT-ALBUTEROL/IPRATROPIUM 3 ML (DUONEB) VIAL IH SCH ×6 (02:51→21:49)
[2022-05-16 05:32] LABS: HEMATOCRIT 27 % (35-52); HEMOGLOBIN 8.1 g/dL (11.5-16.0); MEAN CORPUSCULAR HEMOGLOBIN 28 pg (25-34); MEAN CORPUSCULAR HGB CONC 31 g/dL (32-36); MEAN CORPUSCULAR VOLUME 92 fL (80-99); MEAN PLATELET VOLUME 10.2 fL (9.0-12.2); PLATELET COUNT 200 10^3/uL (130-400); WHITE BLOOD COUNT 6.5 10^3/uL (4.3-11.0)
[2022-05-16] MEDS: NS IV 500 ML 500 ML IV SCH ×2 (05:38→21:14)
[2022-05-16 05:46] LABS: CALCIUM 8.4 MG/DL (8.5-10.1); CREATININE SERUM 0.8 MG/DL (0.60-1.30); PHOSPHORUS 3.9 MG/DL (2.3-4.7); POTASSIUM 4.2 MMOL/L (3.6-5.0)
[2022-05-16] MEDS: MAGNESIUM 1 GM/100 ML IVPB 100 ML IV SCH (06:00)
[2022-05-16] MEDS: inSUlin ASPART (NovoLOG) 1 UNIT/0.01 ML (CHARGE PER UNIT) SC SCH ×4 (06:00→21:08)
[2022-05-16] MEDS: POTASSIUM CL 10MEQ/50ML IVPB 50 ML IV SCH (06:00)
[2022-05-16] MEDS: KCL 20 MEQ TAB (K-DUR) PO SCH (06:00)
[2022-05-16] MEDS: predniSONE 20 MG TAB PO SCH (06:22)
[2022-05-16] MEDS: RT--FLUTICASONE/SALMETEROL 113-14 (AIRDUO RespiCLICK) IH SCH ×2 (06:43→21:48)
--- NOTE | 2022-05-16 08:05 | Tele-ICU Progress Note ---
Subjective Date Seen by a Provider: May 16, 2022 Time Seen by a Provider: 11:14 Subjective/Events-last exam (Tele-ICU Physician , consultation) Available chart/ vitals / labs / Images reviewed H&P is from ER notes Patient's information available about PMH, allergy reviewed in EMR. ROS as per chart and RN report Video assessment done using teleICU camera, rest of exam as per RN Discussed with RN. She is admitted with the decrease in mental status and found to have a acute and chronic hypercarbic respiratory failure requiring BiPAP ventilation. She is a somewhat improved however now as she is more alert she is refusing to have a BiPAP. Last night she did not wear BiPAP. Today we have done an ABG which revealed a PCO2 is 88 and a pH is 7.28 which is somewhat improved but not adequate. She is given 1 dose of Ativan and subsequently put on a BiPAP. Upon admission she had a A. fib with RVR now converted to sinus rhythm. Impression 1. Acute on chronic hypercarbic and hypoxic respiratory failure slowly improving. We will continue to convince her to use a BiPAP and monitor her ABGs. Continue bronchodilator therapy and steroids. 2. Decrease in mental status secondary to hypercarbia improving 3. COPD exacerbation improving 4. Atrial fibrillation with rapid ventricular rate now converted to sinus rhythm. Cardiology following. DVT prophylaxis and ulcer prophylaxis. 5. Chest x-ray showing mild congestive changes hence I will give 1 dose of Lasix. Sepsis Event Evaluation Height, Weight, BMI Height: '" Weight: lbs. oz. kg; 31.53 BMI Method: Exam Exam Patient acknowledged, consented, and participated in this virtual visit which was conducted using real time audio/video Vital Signs Date Time Temp Pulse Resp B/P (MAP) Pulse Ox O2 Delivery O2 Flow Rate FiO2 05/16/22 07:59 36.3 05/16/22 07:00 75 05/16/22 06:43 92 Vapotherm 25.00 55 05/16/22 06:24 Vapotherm 25.00 55.00 05/16/22 06:00 78 27 144/60 (88) 96 Vapotherm 30.00 75.00 05/16/22 05:00 76 27 137/57 (83) 97 Vapotherm 30.00 75.00 05/16/22 04:00 73 22 133/83 (100) 99 Vapotherm 30.00 75.00 05/16/22 04:00 93 Vapotherm 25.00 55 05/16/22 03:00 74 34 140/59 (86) 97 Vapotherm 30.00 75.00 05/16/22 02:52 93 Vapotherm 30.00 75 05/16/22 02:00 75 24 132/53 (79) 100 Vapotherm 30.00 75.00 05/16/22 01:00 75 24 149/54 (85) 99 Vapotherm 30.00 75.00 05/16/22 01:00 80 05/16/22 00:00 77 33 156/70 (98) 100 Vapotherm 30.00 75.00 05/15/22 23:59 92 Vapotherm 30.00 75 05/15/22 23:38 Vapotherm 30.00 75.00 05/15/22 23:00 85 31 157/62 (93) 94 Vapotherm 25.00 55.00 05/15/22 22:04 93 Vapotherm 25.00 55 05/15/22 22:02 93 Vapotherm 25.00 55 05/15/22 22:00 82 19 173/74 (107) 92 Vapotherm 25.00 55.00 05/15/22 21:00 84 36 171/77 (108) 92 Vapotherm 25.00 55.00 05/15/22 20:00 80 30 151/72 (98) 93 Vapotherm 25.00 55.00 05/15/22 20:00 93 Vapotherm 25.00 55 05/15/22 19:00 83 27 140/64 (89) 92 Vapotherm 25.00 55.00 05/15/22 19:00 83 05/15/22 18:55 93 Vapotherm 25.00 55 05/15/22 18:00 86 23 147/69 (95) 93 Vapotherm 25.00 55.00 05/15/22 17:00 85 8 139/65 (89) 92 Vapotherm 25.00 55.00 05/15/22 16:00 80 26 128/60 (82) 94 Vapotherm 25.00 55.00 05/15/22 15:44 93 Vapotherm 25.00 55 05/15/22 15:22 36.9 05/15/22 15:00 84 15 124/55 (78) 92 Vapotherm 25.00 55.00 05/15/22 14:29 95 Vapotherm 25.00 55 05/15/22 14:00 85 28 133/56 (81) 92 Vapotherm 25.00 55.00 05/15/22 13:00 88 27 121/50 (73) 91 Vapotherm 25.00 55.00 05/15/22 13:00 87 05/15/22 12:00 91 Vapotherm 25.00 55 05/15/22 12:00 85 21 102/64 (77) 92 Vapotherm 25.00 55.00 05/15/22 11:17 92 Vapotherm 25.00 55 05/15/22 11:00 84 14 124/53 (76) 92 Vapotherm 25.00 55.00 05/15/22 10:00 85 21 116/52 (73) 95 Vapotherm 25.00 55.00 05/15/22 09:00 92 26 125/57 (79) 93 Vapotherm 25.00 55.00 I & O 05/16/22 07:00 Intake Total 1965 ml Output Total 1375 ml Balance 590 ml Height & Weight Height: '" Weight: lbs. oz. kg; 31.53 BMI Method: General Appearance: No Apparent Distress, Chronically ill, Obese HEENT: PERRL/EOMI, Moist Mucous Membranes, Other (BiPAP in place) Neck: Full Range of Motion, Normal Inspection, Non Tender, Supple, Carotid Bruit Respiratory: Lungs Clear, No Accessory Muscle Use, Other (on Vapotherm) Cardiovascular: Regular Rate, Rhythm, No Murmur Capillary Refill: Less Than 3 Seconds Extremity: Swelling (right lower extremity) Neurologic/Psychiatric: Alert, Oriented x3 Skin: Normal Color, Warm/Dry Lymphatic: No Adenopathy Results Lab Laboratory Tests 05/14/22 17:15 05/15/22 04:32 05/16/22 04:15 Assessment/Plan Assessment/Plan as above Critical Care: Critically Ill Patient Time spent with patient (mins): 25 BALTAZAR TRIPP MD May 16, 2022 08:05
--- NOTE | 2022-05-16 08:28 | Diagnostic Imaging Report ---
Indication: Respiratory failure Frontal chest obtained at 8:19 a.m. and compared with 05/13/2022. Heart and mediastinal silhouette are normal in appearance. There is mild central vascular prominence. There is hyperinflation compatible with COPD. Impression: Hyperinflation compatible with COPD with mild central vascular prominence. No new infiltrate or pleural fluid. Dictated by: Dictated on workstation # [id number]
[2022-05-16] MEDS: PANTOPRAZOLE 40 MG (PROTONIX) VIAL IV SCH (08:51)
[2022-05-16] MEDS: metFORMIN 500 MG (GLUCOPHAGE) TAB PO SCH (08:51)
[2022-05-16] MEDS: dilTIAZem120 MG (CARDIZEM CD) CAP PO SCH (08:52)
[2022-05-16 09:11] LABS: ABG BASE EXCESS 13.4 MMOL/L (-2.5-2.5); ABG OXYGEN SATURATION 95 % (94-100); ABG PO2 74 MMHG (79-93)
[2022-05-16] MEDS: LORazepam 0.5 MG (ATIVAN) TABLET PO PRN ×3 (09:13→21:57)
[2022-05-16 09:23] LABS: ABG PCO2 88 MMHG (35-45); ABG PH 7.28 (7.37-7.43); ABG TCO2 43.1 MMOL/L (21.0-31.0); ALLENS TEST YES-POS; VENTILATOR NO
[2022-05-16 09:24] LABS: INSPIRED O2 25 L; PATIENT TEMP 36.9
--- NOTE | 2022-05-16 10:08 | Progress Note - Hospitalist ---
Subjective HPI/CC On Admission Date Seen by Provider: May 16, 2022 Patient is 71-year-old female who presented to the emergency department due to to mental status. She is unable to provide any history and so all history is obtained from the record. She was found confused by her family and they believe she fell off the couch but they are not certain of those details. She had a CT of her head which was negative for intracranial hemorrhage. She was hypoxic when EMS arrived with sats in the 70s. She was placed on a nonrebreather and her oxygen improved but she remained lethargic and ABG revealed profound hypercapnia with a CO2 of greater than 130. She was placed on BiPAP and transferred here to the ICU. Unfortunately in transfer she did not have CPAP so has just now been replaced on BiPAP just now. Subjective/Events-last exam Pt reports doing well today. No complaints. On Vapotherm and was able to stay off BiPAP overnight. ABG pending. Objective Exam Vital Signs Vital Signs Date Time Temp Pulse Resp B/P (MAP) Pulse Ox O2 Delivery O2 Flow Rate FiO2 05/16/22 09:14 NIV Bilevel 50.00 05/16/22 09:06 87 55 05/16/22 09:00 92 163/70 (101) 05/16/22 08:00 14 05/16/22 07:59 36.3 Capillary Refill : Less Than 3 Seconds General Appearance: No Apparent Distress, Chronically ill, Obese Respiratory: No Respiratory Distress, Decreased Breath Sounds Cardiovascular: Regular Rate, Rhythm, No Murmur Gastrointestinal: Normal Bowel Sounds, Soft Neurologic/Psychiatric: Alert, Oriented x3 Results/Procedures Lab Laboratory Tests 05/16/22 04:15 Patient resulted labs reviewed. Imaging: Reviewed Imaging Report Assessment/Plan Assessment and Plan Assess & Plan/Chief Complaint Acute on chronic respiratory failure COPD Exacerbation with hypercapnia BiPAP HS prn and now on Vapotherm Will need further testing to see if she needs BiPAP at night- ABG pending Continue steroids TeleICU consult- appreciate recs MAT protocol Tachycardia No known history of a fib cardiology consulted, appreciate recs Anemia- POA Hgb up to 8.1 today FOBT negative Trend HTN BP well controlled NIDDMII Hold metformin for now Anticipate higher blood sugars with steroids but have actually be normal to low SSI BS well controlled CAD No acute needs, continue home meds Social situation Daughter reports to RN that patient had bed bugs in home Social work DVT ppx: Lovenox Diagnosis/Problems Diagnosis/Problems (1) COPD exacerbation Status: Acute (2) Decreased responsiveness Status: Acute (3) Hypercapnemia Status: Acute (4) Essential (primary) hypertension Status: Chronic (5) Non-insulin dependent type 2 diabetes mellitus (6) Prophylactic measure (7) CAD (coronary artery disease) ALFRED SANFORD MD May 16, 2022 10:08
[2022-05-16] MEDS ORDERED: FUROSEMIDE 40 MG/4 ML INJ (LASIX) IVP NR (10:15)
[2022-05-16 14:00] VITALS: BP 143/57
[2022-05-16] MEDS: ENOXAPARIN 40 MG/0.4 ML (LOVENOX) SYR SC SCH (14:01)
--- NOTE | 2022-05-16 14:18 | Progress Note - Cardiology ---
Cardiology SOAP Progress Note Subjective: No cp or palp or syncope Shortness of breath with mild to mod activity No n/v/d Gen weakness and malaise Objective: I&O/Vital Signs 05/16/22 05/16/22 05/16/22 05/16/22 02:52 03:00 04:00 04:00 Pulse 74 73 Resp 34 22 B/P (MAP) 140/59 (86) 133/83 (100) Pulse Ox 93 97 93 99 O2 Delivery Vapotherm Vapotherm Vapotherm Vapotherm O2 Flow Rate 30.00 30.00 25.00 30.00 75.00 75.00 FiO2 75 55 05/16/22 05/16/22 05/16/22 05/16/22 05:00 06:00 06:24 06:43 Pulse 76 78 Resp 27 27 B/P (MAP) 137/57 (83) 144/60 (88) Pulse Ox 97 96 92 O2 Delivery Vapotherm Vapotherm Vapotherm Vapotherm O2 Flow Rate 30.00 30.00 25.00 25.00 75.00 75.00 55.00 FiO2 55 05/16/22 05/16/22 05/16/22 05/16/22 07:00 07:00 07:59 08:00 Temp 36.3 Pulse 78 75 Resp 29 B/P (MAP) 143/60 (87) Pulse Ox 95 93 O2 Delivery Vapotherm Vapotherm O2 Flow Rate 25.00 25.00 55.00 FiO2 55 05/16/22 05/16/22 05/16/22 05/16/22 08:00 09:00 09:00 09:05 Pulse 77 92 Resp 14 B/P (MAP) 149/61 (90) 163/70 (101) Pulse Ox 97 91 O2 Delivery Vapotherm Vapotherm Vapotherm Vapotherm O2 Flow Rate 25.00 35.00 35.00 35.00 55.00 100.00 100.00 80.00 05/16/22 05/16/22 05/16/22 05/16/22 09:06 09:14 10:00 10:55 Pulse 81 Resp 23 B/P (MAP) 149/61 (90) Pulse Ox 87 96 95 O2 Delivery Vapotherm NIV Bilevel NIV Bilevel Vapotherm O2 Flow Rate 25.00 50.00 50.00 35.00 FiO2 55 80 05/16/22 05/16/22 05/16/22 05/16/22 11:00 11:18 11:43 12:00 Pulse 87 Resp 21 22 B/P (MAP) 137/82 (100) Pulse Ox 96 97 93 O2 Delivery NIV Bilevel Vapotherm NIV Bilevel NIV Bilevel O2 Flow Rate 50.00 35.00 50.00 70.00 FiO2 50 05/16/22 05/16/22 05/16/22 05/16/22 12:00 13:00 14:00 14:02 Temp 36.3 Pulse 81 77 81 Resp 28 B/P (MAP) 143/57 (85) Pulse Ox 94 93 96 O2 Delivery NIV Bilevel Vapotherm O2 Flow Rate 50.00 35.00 70.00 05/16/22 00:00 Intake Total 660 ml Output Total 675 ml Balance -15 ml Constitutional: AAO x 3, well-developed, other (on BiPAP) Respiratory: No accessory muscle use; other (fair, bilateral air entry; prolong exp) Cardiovascular: regular rate-rhythm, S1 and S2, systolic murmur (soft SOUMYA at card base) Gastrointestional: No tender; soft; No guarding, No rebound; audible bowel sounds Extremities: No clubbing, No cyanosis, No significant edema Neurologic/Psychiatric: oriented x 3, other (moves all limbs equally) Skin: No rash on exposed areas, No ulcerations on exposed areas Results/Procedures: Labs Laboratory Tests 05/15/22 15:39: Glucometer 169H 05/15/22 21:33: Glucometer 113H 05/16/22 04:15: White Blood Count 6.5, Red Blood Count 2.88L, Hemoglobin 8.1L, Hematocrit 27L, Mean Corpuscular Volume 92, Mean Corpuscular Hemoglobin 28, Mean Corpuscular Hemoglobin Concent 31L, Red Cell Distribution Width 13.0, Platelet Count 200, Mean Platelet Volume 10.2, Sodium Level 136, Potassium Level 4.2, Chloride Level 94L, Carbon Dioxide Level 35H, Anion Gap 7, Blood Urea Nitrogen 30H, Creatinine 0.80, Estimat Glomerular Filtration Rate 79, BUN/Creatinine Ratio 38, Glucose Level 97, Calcium Level 8.4L, Phosphorus Level 3.9, Magnesium Level 2.0 05/16/22 06:04: Glucometer 94 05/16/22 09:00: Blood Gas Puncture Site R RAD, Blood Gas Patient Temperature 36.9, Arterial Blood pH 7.28*L, Arterial Blood Partial Pressure CO2 88*H, Arterial Blood Partial Pressure O2 74L, Arterial Blood HCO3 40H, Arterial Blood Total CO2 43. 1*H, Arterial Blood Oxygen Saturation 95, Arterial Blood Base Excess 13.4H, Toan Test YES-POS, Blood Gas Ventilator Setting NO, Blood Gas Inspired Oxygen 25 L 05/16/22 10:45: Glucometer 116H Microbiology 05/13/22 Blood Culture - Preliminary, Resulted Staphylococcus hominis Susceptibility To Follow Laboratory Tests 05/14/22 17:15 05/15/22 04:32 05/16/22 04:15 A/P: Assessment: Acute respiratory failur due to acute exacerbation of COPD due to lower respirator tract infection - Managed by medical team Acute change in mental status, confusion - improved Coronary artery disease, history of stenting done in [facility] about 10 years ago. - is reported to have had a stress recently. No clinical evidence of ACS Hypertension - controlled Anemia of undetermined etiology- Managed by primary care team Plan: * I reviewed her chart, and interviewed and examined her * Treat lower resp tract infection * Manage COPD * Monitor cardiac rhythm * Continue treatment for hypertension and hyperlipidemia * Continue antiplatelet therapy because of h/o CAD and coronary stenting * Monitor labs * Consider blood transfusion if Hgb fall below 8 KAYA SUH MD FACP [facility] May 16, 2022 14:18
[2022-05-16] MEDS ORDERED: VANCOMYCIN INJECTION 0.1 MG in NS (IVPB) 250 ML IV SCH (14:45)
[2022-05-16] MEDS ORDERED: VANCOMYCIN 1500 MG/NS 500 ML IVPB IV NR ×2 (15:00)
[2022-05-16] MEDS: ROSUVASTATIN 10 MG (CRESTOR) TABLET PO SCH (21:07)
[2022-05-16] MEDS: MELATONIN 3 MG TABLET PO PRN (21:08)
[2022-05-16 21:53] VITALS: BP 135/54
[2022-05-17] MEDS: NS IV 500 ML 500 ML IV SCH (01:29)
[2022-05-17] MEDS: RT-ALBUTEROL/IPRATROPIUM 3 ML (DUONEB) VIAL IH SCH ×6 (03:37→22:16)
[2022-05-17 03:38] VITALS: BP 122/50
[2022-05-17 04:25] LABS: HEMATOCRIT 27 % (35-52); MEAN CORPUSCULAR HEMOGLOBIN 28 pg (25-34); MEAN CORPUSCULAR HGB CONC 30 g/dL (32-36); MEAN CORPUSCULAR VOLUME 94 fL (80-99); MEAN PLATELET VOLUME 9.9 fL (9.0-12.2); PLATELET COUNT 170 10^3/uL (130-400); WHITE BLOOD COUNT 3.7 10^3/uL (4.3-11.0)
[2022-05-17 04:55] LABS: CALCIUM 8.4 MG/DL (8.5-10.1); CREATININE SERUM 0.77 MG/DL (0.60-1.30); MAGNESIUM 1.7 MG/DL (1.6-2.4); PHOSPHORUS 3.9 MG/DL (2.3-4.7)
[2022-05-17] MEDS: KCL 20 MEQ TAB (K-DUR) PO SCH (04:57)
[2022-05-17] MEDS: inSUlin ASPART (NovoLOG) 1 UNIT/0.01 ML (CHARGE PER UNIT) SC SCH ×4 (04:57→21:50)
[2022-05-17] MEDS: POTASSIUM CL 10MEQ/50ML IVPB 50 ML IV SCH (04:57)
[2022-05-17] MEDS: MAGNESIUM 1 GM/100 ML IVPB 100 ML IV SCH ×3 (04:57→06:48)
[2022-05-17] MEDS: LORazepam 0.5 MG (ATIVAN) TABLET PO PRN ×2 (06:48→20:21)
[2022-05-17] MEDS: predniSONE 20 MG TAB PO SCH (06:48)
[2022-05-17] MEDS: RT--FLUTICASONE/SALMETEROL 113-14 (AIRDUO RespiCLICK) IH SCH ×2 (07:14→18:53)
[2022-05-17 07:15] VITALS: BP 131/78
--- NOTE | 2022-05-17 08:36 | Tele-ICU Progress Note ---
Subjective Date Seen by a Provider: May 17, 2022 Time Seen by a Provider: 10:42 Subjective/Events-last exam Tele-ICU Physician , consultation) Available chart/ vitals / labs / Images reviewed H&P is from ER notes Patient's information available about PMH, allergy reviewed in EMR. ROS as per chart and RN report Video assessment done using teleICU camera, rest of exam as per RN Discussed with RN. She is admitted with the decrease in mental status and found to have a acute and chronic hypercarbic respiratory failure requiring BiPAP ventilation. She is a somewhat improved however now as she is more alert she is refusing to have a BiPAP. Last night she did not wear BiPAP. Today we have done an ABG which revealed a PCO2 is 88 and a pH is 7.28 which is somewhat improved but not adequate. She iscurrently wearing Bipap Upon admission she had a A. fib with RVR now converted to sinus rhythm. Impression 1. Acute on chronic hypercarbic and hypoxic respiratory failure slowly improving. We will change bipap to AVAPS ventillation witn min pressure 10, max pressure 30, TV target 400 ml. and monitor her ABGs. Continue bronchodilator therapy and steroids. 2. Decrease in mental status secondary to hypercarbia improving 3. COPD exacerbation improving 4. Atrial fibrillation with rapid ventricular rate now converted to sinus rhythm. Cardiology following. 5.DVT prophylaxis and ulcer prophylaxis. Sepsis Event Evaluation Height, Weight, BMI Height: '" Weight: lbs. oz. kg; 32.46 BMI Method: Exam Exam Patient acknowledged, consented, and participated in this virtual visit which was conducted using real time audio/video Vital Signs Date Time Temp Pulse Resp B/P (MAP) Pulse Ox O2 Delivery O2 Flow Rate FiO2 05/17/22 08:00 71 17 123/58 (79) 95 NIV Bilevel 50.00 05/17/22 07:27 NIV Bilevel 50.00 05/17/22 07:15 80 14 94 50.00 05/17/22 07:14 98 Vapotherm 25.00 60 05/17/22 07:00 80 05/17/22 07:00 80 22 131/78 (95) 95 Vapotherm 25.00 60.00 05/17/22 06:40 92 Vapotherm 25.00 60 05/17/22 06:00 82 12 120/54 (76) 91 Vapotherm 25.00 60.00 05/17/22 05:00 74 22 139/59 (85) 97 Vapotherm 25.00 60.00 05/17/22 04:00 73 22 137/63 (87) 97 NIV Bilevel 50.00 05/17/22 04:00 36.5 Vapotherm 25.00 60.00 05/17/22 04:00 96 Vapotherm 35.00 50 05/17/22 03:38 70 14 96 05/17/22 03:00 73 22 132/58 (82) 98 NIV Bilevel 50.00 05/17/22 02:00 80 25 123/57 (79) 96 NIV Bilevel 50.00 05/17/22 01:31 NIV Bilevel 50.00 05/17/22 01:00 77 25 131/64 (86) 95 Vapotherm 25.00 60.00 05/17/22 01:00 80 05/17/22 00:00 81 28 143/57 (85) 96 Vapotherm 25.00 60.00 05/16/22 23:59 95 Vapotherm 35.00 50 05/16/22 23:21 36.3 Vapotherm 25.00 60.00 05/16/22 23:15 Vapotherm 25.00 60.00 05/16/22 23:00 81 24 126/51 (76) 95 NIV Bilevel 50.00 05/16/22 22:00 80 36 126/54 (78) 93 NIV Bilevel 50.00 05/16/22 21:53 78 25 93 05/16/22 21:08 NIV Bilevel 50.00 05/16/22 21:00 83 25 135/54 (81) 95 Vapotherm 25.00 60.00 05/16/22 20:00 95 Vapotherm 35.00 50 05/16/22 20:00 87 24 142/61 (88) 96 Vapotherm 25.00 60.00 05/16/22 19:21 92 Vapotherm 25.00 60 05/16/22 19:00 90 05/16/22 19:00 36.7 Vapotherm 25.00 60.00 05/16/22 19:00 87 29 147/70 (95) 94 Vapotherm 25.00 60.00 05/16/22 18:45 95 Vapotherm 25.00 50.00 05/16/22 18:41 Vapotherm 30.00 60.00 05/16/22 18:00 77 126/65 (85) 95 NIV Bilevel 50.00 05/16/22 17:00 85 140/62 (88) 93 NIV Bilevel 50.00 05/16/22 17:00 93 NIV Bilevel 50.00 05/16/22 16:00 87 135/58 (83) 93 Vapotherm 35.00 70.00 05/16/22 16:00 37.3 05/16/22 16:00 93 Vapotherm 35.00 70 05/16/22 15:00 85 128/54 (78) 93 Vapotherm 35.00 70.00 05/16/22 14:19 96 Vapotherm 35.00 70 05/16/22 14:02 96 Vapotherm 35.00 70.00 05/16/22 14:00 80 25 123/57 (79) 94 NIV Bilevel 50.00 05/16/22 14:00 36.3 81 93 05/16/22 13:00 77 05/16/22 13:00 77 21 131/64 (86) 94 NIV Bilevel 50.00 05/16/22 12:00 81 28 143/57 (85) 94 NIV Bilevel 50.00 05/16/22 12:00 93 NIV Bilevel 50 05/16/22 11:43 NIV Bilevel 50.00 05/16/22 11:18 22 97 Vapotherm 35.00 70.00 05/16/22 11:00 87 21 137/82 (100) 96 NIV Bilevel 50.00 05/16/22 10:55 95 Vapotherm 35.00 80 05/16/22 10:00 81 23 149/61 (90) 96 NIV Bilevel 50.00 05/16/22 09:14 NIV Bilevel 50.00 05/16/22 09:06 87 Vapotherm 25.00 55 05/16/22 09:05 Vapotherm 35.00 80.00 05/16/22 09:00 92 163/70 (101) 91 Vapotherm 35.00 100.00 05/16/22 09:00 Vapotherm 35.00 100.00 l I & O 05/17/22 07:00 Intake Total 1250 ml Output Total 3450 ml Balance -2200 ml Height & Weight Height: '" Weight: lbs. oz. kg; 32.46 BMI Method: General Appearance: No Apparent Distress, Chronically ill, Obese HEENT: PERRL/EOMI, Moist Mucous Membranes, Other (BiPAP in place) Neck: Full Range of Motion, Normal Inspection, Non Tender, Supple, Carotid Bruit Respiratory: Lungs Clear, No Accessory Muscle Use, Other (on Vapotherm) Cardiovascular: Regular Rate, Rhythm, No Murmur Capillary Refill: Less Than 3 Seconds Extremity: Swelling (right lower extremity) Neurologic/Psychiatric: Alert, Oriented x3 Skin: Normal Color, Warm/Dry Lymphatic: No Adenopathy Results Lab Laboratory Tests 05/16/22 04:15 05/17/22 04:12 Assessment/Plan Assessment/Plan as above Critical Care: Critically Ill Patient Time spent with patient (mins): 25 BALTAZAR TRIPP MD May 17, 2022 08:36
[2022-05-17] MEDS: PANTOPRAZOLE 40 MG (PROTONIX) VIAL IV SCH (08:56)
[2022-05-17] MEDS: dilTIAZem120 MG (CARDIZEM CD) CAP PO SCH (08:57)
[2022-05-17 08:59] LABS: ABG BASE EXCESS 18.4 MMOL/L (-2.5-2.5); ABG PO2 51 MMHG (79-93)
[2022-05-17 09:03] LABS: ABG PH 7.33 (7.37-7.43)
[2022-05-17 09:04] LABS: ABG PCO2 88 MMHG (35-45); ABG TCO2 47.8 MMOL/L (21.0-31.0)
[2022-05-17 09:05] LABS: ABG OXYGEN SATURATION 79 % (94-100); INSPIRED O2 50%; PATIENT TEMP 37.1; VENTILATOR NO
[2022-05-17 10:16] LABS: ABG BASE EXCESS 17.5 MMOL/L (-2.5-2.5); ABG OXYGEN SATURATION 98 % (94-100); ABG PO2 88 MMHG (79-93)
[2022-05-17 10:19] LABS: ABG PCO2 90 MMHG (35-45); ABG PH 7.32 (7.37-7.43)
[2022-05-17 10:20] LABS: ABG TCO2 47.1 MMOL/L (21.0-31.0); ALLENS TEST YES-POS; INSPIRED O2 25L; PATIENT TEMP 37.1; VENTILATOR NO
[2022-05-17 10:46] VITALS: BP 114/52
--- NOTE | 2022-05-17 10:47 | Progress Note - Cardiology ---
Cardiology SOAP Progress Note Subjective: no shortness of breath at rest no cp no n/v/d no palp or syncope no swelling gen weakness and malaise Objective: I&O/Vital Signs 05/16/22 05/16/22 05/16/22 05/16/22 23:00 23:15 23:21 23:59 Temp 36.3 Pulse 81 Resp 24 B/P (MAP) 126/51 (76) Pulse Ox 95 95 O2 Delivery NIV Bilevel Vapotherm Vapotherm Vapotherm O2 Flow Rate 50.00 25.00 25.00 35.00 60.00 60.00 FiO2 50 05/17/22 05/17/22 05/17/22 05/17/22 00:00 01:00 01:00 01:31 Pulse 81 80 77 Resp 28 25 B/P (MAP) 143/57 (85) 131/64 (86) Pulse Ox 96 95 O2 Delivery Vapotherm Vapotherm NIV Bilevel O2 Flow Rate 25.00 25.00 50.00 60.00 60.00 05/17/22 05/17/22 05/17/22 05/17/22 02:00 03:00 03:38 04:00 Pulse 80 73 70 Resp 25 22 14 B/P (MAP) 123/57 (79) 132/58 (82) Pulse Ox 96 98 96 96 O2 Delivery NIV Bilevel NIV Bilevel Vapotherm O2 Flow Rate 50.00 50.00 35.00 FiO2 50 05/17/22 05/17/22 05/17/22 05/17/22 04:00 04:00 05:00 06:00 Temp 36.5 Pulse 73 74 82 Resp 22 22 12 B/P (MAP) 137/63 (87) 139/59 (85) 120/54 (76) Pulse Ox 97 97 91 O2 Delivery Vapotherm NIV Bilevel Vapotherm Vapotherm O2 Flow Rate 25.00 50.00 25.00 25.00 60.00 60.00 60.00 05/17/22 05/17/22 05/17/22 05/17/22 06:40 07:00 07:00 07:14 Pulse 80 80 Resp 22 B/P (MAP) 131/78 (95) Pulse Ox 92 95 98 O2 Delivery Vapotherm Vapotherm Vapotherm O2 Flow Rate 25.00 25.00 25.00 60.00 FiO2 60 60 05/17/22 05/17/22 05/17/22 05/17/22 07:15 07:27 08:00 08:20 Temp 37.1 Pulse 80 71 Resp 14 17 B/P (MAP) 123/58 (79) Pulse Ox 94 95 O2 Delivery NIV Bilevel NIV Bilevel O2 Flow Rate 50.00 50.00 50.00 05/17/22 05/17/22 09:00 10:00 Pulse 75 84 Resp 18 12 B/P (MAP) 135/61 (85) 114/52 (72) Pulse Ox 98 98 O2 Delivery NIV Bilevel NIV Bilevel O2 Flow Rate 50.00 50.00 05/17/22 00:00 Intake Total 650 ml Output Total 2625 ml Balance -1975 ml Constitutional: AAO x 3, well-developed, other (on BiPAP) Respiratory: No accessory muscle use; other (fair, bilateral air entry; prolong exp) Cardiovascular: regular rate-rhythm, S1 and S2, systolic murmur (soft SOUMYA at card base) Gastrointestional: No tender; soft; No guarding, No rebound; audible bowel aman nds Extremities: No clubbing, No cyanosis, No significant edema Neurologic/Psychiatric: oriented x 3, other (moves all limbs equally) Skin: No rash on exposed areas, No ulcerations on exposed areas Results/Procedures: Labs Laboratory Tests 05/16/22 15:39: Glucometer 158H 05/16/22 20:32: Glucometer 156H 05/17/22 04:12: White Blood Count 3.7L, Red Blood Count 2.85L, Hemoglobin 8.0L, Hematocrit 27L, Mean Corpuscular Volume 94, Mean Corpuscular Hemoglobin 28, Mean Corpuscular Hemoglobin Concent 30L, Red Cell Distribution Width 12.8, Platelet Count 170, Mean Platelet Volume 9.9, Sodium Level 139, Potassium Level 4.0, Chloride Level 92L, Carbon Dioxide Level 41H, Anion Gap 6, Blood Urea Nitrogen 23H, Creatinine 0.77, Estimat Glomerular Filtration Rate 82, BUN/Creatinine Ratio 30, Glucose Level 86, Calcium Level 8.4L, Phosphorus Level 3.9, Magnesium Level 1.7 05/17/22 08:45: Blood Gas Puncture Site UNK, Blood Gas Patient Temperature 37.1, Arterial Blood pH 7.33*L, Arterial Blood Partial Pressure CO2 88*H, Arterial Blood Partial Pressure O2 51L, Arterial Blood HCO3 45*H, Arterial Blood Total CO2 47.8*H, Arterial Blood Oxygen Saturation 79L, Arterial Blood Base Excess 18.4H, Toan Test UNK, Blood Gas Ventilator Setting NO, Blood Gas Inspired Oxygen 50% 05/17/22 10:10: Blood Gas Puncture Site L RAD, Blood Gas Patient Temperature 37.1, Arterial Blood pH 7.32*L, Arterial Blood Partial Pressure CO2 90*H, Arterial Blood Partial Pressure O2 88, Arterial Blood HCO3 44*H, Arterial Blood Total CO2 47.1*H, Arterial Blood Oxygen Saturation 98, Arterial Blood Base Excess 17.5H, Toan Test YES-POS, Blood Gas Ventilator Setting NO, Blood Gas Inspired Oxygen 25L Microbiology 05/15/22 Blood Culture - Preliminary, Resulted No growth Laboratory Tests 05/16/22 04:15 05/17/22 04:12 A/P: Assessment: Acute respiratory failure due to acute exacerbation of COPD due to lower respiratory tract infection - Managed by medical team Acute change in mental status, confusion - improved Coronary artery disease, history of stenting done in [facility] about 10 years ago. - is reported to have had a stress recently. No clinical evidence of ACS Hypertension - controlled Anemia of undetermined etiology- Managed by primary care team Plan: * Treat lower resp tract infection * Manage COPD * Monitor cardiac rhythm * Continue treatment for hypertension and hyperlipidemia * Continue antiplatelet therapy because of h/o CAD and coronary stenting * Monitor labs * Consider blood transfusion if Hgb fall below 8 KAYA SUH MD [facility] May 17, 2022 10:47
[2022-05-17] MEDS: ENOXAPARIN 40 MG/0.4 ML (LOVENOX) SYR SC SCH (13:31)
--- NOTE | 2022-05-17 14:21 | Progress Note - Hospitalist ---
Subjective HPI/CC On Admission Date Seen by Provider: May 17, 2022 Patient is 71-year-old female who presented to the emergency department due to to mental status. She is unable to provide any history and so all history is obtained from the record. She was found confused by her family and they believe she fell off the couch but they are not certain of those details. She had a CT of her head which was negative for intracranial hemorrhage. She was hypoxic when EMS arrived with sats in the 70s. She was placed on a nonrebreather and her oxygen improved but she remained lethargic and ABG revealed profound hypercapnia with a CO2 of greater than 130. She was placed on BiPAP and transferred here to the ICU. Unfortunately in transfer she did not have CPAP so has just now been replaced on BiPAP just now. Subjective/Events-last exam Pt reports feeling better today. Breathing better. Only complaints is about her newsfeed on her cellphone being changed by family. Watching [place] and about to eat breakfast. Did require BiPAP overnight but back on Vapotherm. Objective Exam Vital Signs Vital Signs Date Time Temp Pulse Resp B/P (MAP) Pulse Ox O2 Delivery O2 Flow Rate FiO2 05/17/22 13:00 75 23 135/117 (123) 95 NIV Bilevel 50.00 05/17/22 08:20 37.1 05/17/22 08:00 50 Capillary Refill : Less Than 3 Seconds General Appearance: No Apparent Distress, Chronically ill, Obese Respiratory: Lungs Clear, No Accessory Muscle Use Cardiovascular: Regular Rate, Rhythm, No Murmur Results/Procedures Lab Laboratory Tests 05/17/22 04:12 Patient resulted labs reviewed. Imaging: Reviewed Imaging Report Assessment/Plan Assessment and Plan Assess & Plan/Chief Complaint Acute on chronic respiratory failure COPD Exacerbation with hypercapnia BiPAP prn and now on Vapotherm Will need further testing to see if she needs NIPPV at home Continue steroids TeleICU consult- appreciate recs MAT protocol Likely contaminated blood cultures Vanc added for coag neg staph in blood Awaiting sensitivities but likely contaminated Tachycardia No known history of a fib cardiology consulted, appreciat recs HTN BP well controlled NIDDMII Hold metformin for now Anticipate higher blood sugars with steroids SSI BS well controlled CAD No acute needs, continue home meds Social situation Daughter reports to RN that patient had bed bugs in home Will consult social work DVT ppx: Lovenox Critical Care Critically Ill Patient Diagnosis/Problems Diagnosis/Problems (1) COPD exacerbation Status: Acute (2) Decreased responsiveness Status: Acute (3) Hypercapnemia Status: Acute (4) Essential (primary) hypertension Status: Chronic (5) Non-insulin dependent type 2 diabetes mellitus (6) Prophylactic measure (7) CAD (coronary artery disease) ALFRED SANFORD MD May 17, 2022 14:21
[2022-05-17] MEDS ORDERED: VANCOMYCIN 1 GM/NS 250 ML IVPB IV SCH ×2 (15:00)
[2022-05-17 16:13] VITALS: BP 146/53
[2022-05-17 18:53] VITALS: BP 135/83
[2022-05-17] MEDS: ROSUVASTATIN 10 MG (CRESTOR) TABLET PO SCH (20:21)
[2022-05-17] MEDS: MELATONIN 3 MG TABLET PO PRN (20:21)
[2022-05-17] MEDS: DexMEDEtomidine 250 ML DRIP 250 ML IV SCH (20:22)
[2022-05-17 22:16] VITALS: BP 110/61
[2022-05-18] MEDS: RT-ALBUTEROL/IPRATROPIUM 3 ML (DUONEB) VIAL IH SCH ×6 (03:00→22:45)
[2022-05-18 03:01] VITALS: BP 141/62
[2022-05-18 04:16] LABS: HEMATOCRIT 25 % (35-52); HEMOGLOBIN 7.6 g/dL (11.5-16.0); MEAN CORPUSCULAR HEMOGLOBIN 28 pg (25-34); MEAN CORPUSCULAR HGB CONC 31 g/dL (32-36); MEAN CORPUSCULAR VOLUME 92 fL (80-99); PLATELET COUNT 144 10^3/uL (130-400); WHITE BLOOD COUNT 2.8 10^3/uL (4.3-11.0)
[2022-05-18 04:34] LABS: POTASSIUM 4.4 MMOL/L (3.6-5.0)
[2022-05-18 04:36] LABS: CALCIUM 8.1 MG/DL (8.5-10.1)
[2022-05-18 04:40] LABS: CREATININE SERUM 0.7 MG/DL (0.60-1.30); PHOSPHORUS 2.9 MG/DL (2.3-4.7)
[2022-05-18 04:42] LABS: MAGNESIUM 1.9 MG/DL (1.6-2.4)
[2022-05-18] MEDS: POTASSIUM CL 10MEQ/50ML IVPB 50 ML IV SCH (04:47)
[2022-05-18] MEDS: MAGNESIUM 1 GM/100 ML IVPB 100 ML IV SCH (04:47)
[2022-05-18] MEDS: inSUlin ASPART (NovoLOG) 1 UNIT/0.01 ML (CHARGE PER UNIT) SC SCH ×4 (04:48→20:52)
[2022-05-18] MEDS: KCL 20 MEQ TAB (K-DUR) PO SCH (04:48)
--- NOTE | 2022-05-18 06:15 | Diagnostic Imaging Report ---
CLINICAL INDICATION: Patient with congestive heart failure. EXAM: Portable chest x-ray upright view. COMPARISON: Chest x-ray dated 05/16/2022. FINDINGS: There is slight increased mild airspace opacities involving the medial right lung base which may represent atelectasis versus infiltrates. The remainder of the exam is stable. Hyperinflated lungs are noted. Pulmonary vasculature and cardiac silhouette are within normal limits. There is no pleural effusion or pneumothorax. Bones show no significant interval abnormality. IMPRESSION: 1: There is interval development of mild atelectasis versus infiltrate involving the medial right lung base. Dictated by: Dictated on workstation # [id number]
[2022-05-18] MEDS: predniSONE 20 MG TAB PO SCH (06:21)
[2022-05-18] MEDS: NS IV 500 ML 500 ML IV SCH ×2 (06:21→08:16)
[2022-05-18 06:30] LABS: ABG BASE EXCESS 18.9 MMOL/L (-2.5-2.5); ABG OXYGEN SATURATION 98 % (94-100); ABG PH 7.36 (7.37-7.43); ABG PO2 98 MMHG (79-93)
[2022-05-18 06:37] LABS: ABG PCO2 80 MMHG (35-45); ABG TCO2 48.2 MMOL/L (21.0-31.0); ALLENS TEST YES-POS
[2022-05-18 06:38] LABS: PATIENT TEMP 35.7; VENTILATOR NO
[2022-05-18 06:47] VITALS: BP 111/54
[2022-05-18] MEDS: DOXYCYCLINE 100 MG (VIBRAMYCIN) TABLET PO SCH ×2 (08:17→16:19)
[2022-05-18] MEDS: dilTIAZem120 MG (CARDIZEM CD) CAP PO SCH (08:17)
[2022-05-18] MEDS: PANTOPRAZOLE 40 MG (PROTONIX) VIAL IV SCH (08:17)
[2022-05-18] MEDS: cefTRIAXone 1 GM PRE-MIX 50 ML IV SCH (08:18)
[2022-05-18] MEDS ORDERED: FUROSEMIDE 40 MG/4 ML INJ (LASIX) IVP ONE (08:45)
--- NOTE | 2022-05-18 08:46 | Tele-ICU Progress Note ---
Subjective Date Seen by a Provider: May 18, 2022 Time Seen by a Provider: 08:41 Subjective/Events-last exam Tele-ICU Physician , Progress note) Available chart/ vitals / labs / Images reviewed H&P is from ER notes Patient's information available about PMH, allergy reviewed in EMR. ROS as per chart and RN report Video assessment done using teleICU camera, rest of exam as per RN Discussed with RN. She is admitted with the decrease in mental status and found to have a acute and chronic hypercarbic respiratory failure requiring BiPAP ventilation. She is a somewhat improved however now as she is more alert she is refusing to have a BiPAP. Last night she did not wear BiPAP. Today we have done an ABG which revealed a PCO2 is 80 and a pH is 7.36 which is somewhat improved but not adequate. She is currently wearing Vapo therm for breakfast and lunch Upon admission she had a A. fib with RVR now converted to sinus rhythm. Impression 1. Acute on chronic hypercarbic and hypoxic respiratory failure slowly improving. Continue bronchodilator therapy and steroids. 2. Decrease in mental status secondary to hypercarbia improved significantly. 3. COPD exacerbation improving 4. Atrial fibrillation with rapid ventricular rate now converted to sinus rhythm. Cardiology following. 5 DVT prophylaxis and ulcer prophylaxis. Sepsis Event Evaluation Height, Weight, BMI Height: '" Weight: lbs. oz. kg; 32.59 BMI Method: Exam Exam Patient acknowledged, consented, and participated in this virtual visit which was conducted using real time audio/video Vital Signs Date Time Temp Pulse Resp B/P (MAP) Pulse Ox O2 Delivery O2 Flow Rate FiO2 05/18/22 08:25 Vapotherm 25.00 60.00 05/18/22 07:51 36.2 05/18/22 07:36 NIV Bilevel 40.00 05/18/22 07:35 65 05/18/22 07:00 57 17 125/55 (78) 98 NIV Bilevel 50.00 05/18/22 06:47 57 17 97 40.00 05/18/22 06:00 57 17 111/54 (73) 98 NIV Bilevel 50.00 05/18/22 05:00 58 16 131/62 (85) 98 NIV Bilevel 50.00 05/18/22 04:27 36.1 05/18/22 04:00 61 15 127/60 (82) 97 NIV Bilevel 50.00 05/18/22 04:00 NIV Bilevel 40.00 05/18/22 04:00 97 NIV Bilevel 50 05/18/22 03:01 61 16 99 50.00 05/18/22 03:00 61 17 141/62 (88) 99 NIV Bilevel 50.00 05/18/22 02:00 63 17 143/63 (89) 99 NIV Bilevel 50.00 05/18/22 01:00 66 05/18/22 01:00 66 15 140/66 (90) 99 NIV Bilevel 50.00 05/18/22 00:00 64 13 129/72 (91) 98 NIV Bilevel 50.00 05/17/22 23:59 97 NIV Bilevel 50 05/17/22 23:44 36.2 05/17/22 23:00 66 12 111/51 (71) 98 NIV Bilevel 50.00 05/17/22 22:16 69 15 98 50.00 05/17/22 22:00 71 26 112/54 (73) 97 NIV Bilevel 50.00 05/17/22 21:00 71 26 112/54 (73) 97 NIV Bilevel 50.00 05/17/22 20:22 77 120/55 05/17/22 20:00 97 NIV Bilevel 50 05/17/22 20:00 77 23 120/55 (76) 95 NIV Bilevel 50.00 05/17/22 19:51 36.3 05/17/22 19:00 82 05/17/22 19:00 82 29 130/60 (83) 94 NIV Bilevel 50.00 05/17/22 18:53 76 21 94 50.00 05/17/22 18:00 75 16 135/83 (100) 97 NIV Bilevel 50.00 05/17/22 17:00 79 27 134/57 (82) 94 NIV Bilevel 50.00 05/17/22 16:13 80 27 96 50.00 05/17/22 16:00 36.9 05/17/22 16:00 97 NIV Bilevel 50 05/17/22 16:00 80 28 146/53 (84) 92 NIV Bilevel 50.00 05/17/22 15:00 80 18 142/56 (84) 92 NIV Bilevel 50.00 05/17/22 14:19 92 Vapotherm 25.00 60 05/17/22 14:00 80 21 134/65 (88) 94 NIV Bilevel 50.00 05/17/22 13:00 75 23 135/117 (123) 95 NIV Bilevel 50.00 05/17/22 12:55 76 05/17/22 12:00 94 Vapotherm 35.00 50 05/17/22 12:00 79 24 133/94 (107) 95 NIV Bilevel 50.00 05/17/22 11:00 81 10 128/59 (82) 94 NIV Bilevel 50.00 05/17/22 10:46 82 18 94 50.00 05/17/22 10:00 84 12 114/52 (72) 98 NIV Bilevel 50.00 05/17/22 09:00 75 18 135/61 (85) 98 NIV Bilevel 50.00 I & O 05/18/22 07:00 Intake Total 1950 ml Output Total 1175 ml Balance 775 ml Height & Weight Height: '" Weight: lbs. oz. kg; 32.59 BMI Method: General Appearance: No Apparent Distress, Chronically ill, Obese HEENT: PERRL/EOMI, Moist Mucous Membranes, Other (BiPAP in place) Neck: Full Range of Motion, Normal Inspection, Non Tender, Supple, Carotid Bruit Respiratory: Lungs Clear, No Accessory Muscle Use Cardiovascular: Regular Rate, Rhythm, No Murmur Capillary Refill: Less Than 3 Seconds Extremity: Swelling (right lower extremity) Neurologic/Psychiatric: Alert, Oriented x3 Skin: Normal Color, Warm/Dry Lymphatic: No Adenopathy Results Lab Laboratory Tests 05/17/22 04:12 05/18/22 04:06 Assessment/Plan Assessment/Plan as above Critical Care: Critically Ill Patient Time spent with patient (mins): 20 BALTAZAR TRIPP MD May 18, 2022 08:46
--- NOTE | 2022-05-18 09:33 | Cardiology Progress Note ---
Subjective Date Seen by Provider: May 18, 2022 Time Seen by Provider: 09:29 Subjective/Events-last exam Patient was seen at bedside, maintained on Vapotherm Severe hypoxemia, denied any chest pain. Objective-Cardiology Exam Last Set of Vital Signs Vital Signs 05/18/22 05/18/22 05/18/22 05/18/22 05/18/22 04:00 07:00 07:35 07:51 08:25 Temp 36.2 Pulse 65 Resp 17 B/P (MAP) 125/55 (78) Pulse Ox 98 O2 Delivery Vapotherm O2 Flow Rate 25.00 60.00 FiO2 50 I&O Intake and Output 05/18/22 00:00 Intake Total 2350 ml Output Total 1350 ml Balance 1000 ml Intake Oral 1900 ml IV Total 450 ml Output Urine Total 1350 ml General: Alert, Cooperative HEENT: Atraumatic, PERRLA Neck: Supple, No JVD, No Thyromegaly Lungs: Normal Air Movement, Other (Bilateral rhonchi) Heart: Regular Rate, Normal S1, Normal S2, No Murmurs Abdomen: Normal Bowel Sounds, Soft, No Tenderness, No Hepatosplenomegaly, No Masses Extremities: No Clubbing, No Cyanosis, No Edema, Normal Pulses, No Tendernes s/Swelling Skin: No Rashes, No Breakdown, No Significant Lesion Neuro: Normal Gait, Normal Speech, Strength at 5/5 X4 Ext, Normal Tone, Sensation Intact Psych/Mental Status: Mental Status NL, Mood NL Results Lab Laboratory Tests 05/18/22 04:06 A/P-Cardiology Admission Diagnosis Acute respiratory failure Acute change in mental status Sinus tachycardia Anemia Assessment/Plan Status post acute respiratory failure, acute exacerbation of COPD Baseline oxygen dependent at home, currently on Vapotherm Possible using BiPAP at home. Improving slowly. Status post acute change in mental status, confusion. Probably secondary to hypoxemia, currently mental status is better, able to respond appropriately Transient episode of tachycardia with a heart rate 150, she was started on amiodarone drip, in sinus rhythm at this time Did not have any history of atrial fibrillation, I have discontinued amiodarone, continue to monitor for now. No changes are recommended Coronary artery disease, history of stenting done in [facility] about 10 years ago. Had a stress test recently. Continue to monitor, evaluate EKG Hypertension, maintained on Cardizem CD. Restart and monitor blood pressure Anemia, monitor H&H Stool for occult blood was negative Managed by primary care team NAE FORD MD May 18, 2022 09:33
[2022-05-18] MEDS: RT--FLUTICASONE/SALMETEROL 113-14 (AIRDUO RespiCLICK) IH SCH ×2 (10:03→22:45)
[2022-05-18 10:04] VITALS: BP 130/69
[2022-05-18] MEDS: ENOXAPARIN 40 MG/0.4 ML (LOVENOX) SYR SC SCH (12:36)
[2022-05-18] MEDS ORDERED: TROUGH ORDER-PHARMACY XX NR (14:00)
[2022-05-18 18:34] VITALS: BP 134/113
--- NOTE | 2022-05-18 20:11 | Progress Note - Hospitalist ---
Subjective HPI/CC On Admission Date Seen by Provider: May 18, 2022 Time Seen by Provider: 08:55 Patient is 71-year-old female who presented to the emergency department due to to mental status. She is unable to provide any history and so all history is obtained from the record. She was found confused by her family and they believe she fell off the couch but they are not certain of those details. She had a CT of her head which was negative for intracranial hemorrhage. She was hypoxic when EMS arrived with sats in the 70s. She was placed on a nonrebreather and her oxygen improved but she remained lethargic and ABG revealed profound hypercapnia with a CO2 of greater than 130. She was placed on BiPAP and transferred here to the ICU. Unfortunately in transfer she did not have CPAP so has just now been replaced on BiPAP just now. Subjective/Events-last exam She is off BiPAP during my exam. She denies pain. She has no complaints. Objective Exam Vital Signs Vital Signs Date Time Temp Pulse Resp B/P (MAP) Pulse Ox O2 Delivery O2 Flow Rate FiO2 05/18/22 19:11 36.3 NIV Bilevel 40.00 05/18/22 18:34 75 21 95 05/18/22 18:00 133/70 (91) 05/18/22 15:49 50 Capillary Refill : Less Than 3 Seconds General Appearance: No Apparent Distress, Obese Respiratory: Lungs Clear, No Respiratory Distress Cardiovascular: Regular Rate, Rhythm, No Murmur Gastrointestinal: Normal Bowel Sounds, Soft Extremity: Normal Inspection, No Pedal Edema Neurologic/Psychiatric: Alert, Normal Mood/Affect Skin: Normal Color, Warm/Dry Results/Procedures Lab Laboratory Tests 05/18/22 04:06 Patient resulted labs reviewed. Imaging: Reviewed Imaging Report Assessment/Plan Assessment and Plan Assess & Plan/Chief Complaint Acute on chronic respiratory failure with hypoxia and hypercapnia COPD Exacerbation PNA BiPAP Steroids TeleICU following MAT protocol Rocephin and Doxycycline Will likely need home BiPAP Likely contaminated blood cultures Repeat cultures negative Stop Vancomycin HTN BP well controlled T2DM Hold metformin Anticipate higher blood sugars with steroids SSI CAD No acute needs, continue home meds Social situation Daughter reports to RN that patient had bed bugs in home Social work consulted DVT ppx: Lovenox Tachycardia, resolved Critical Care Critically Ill Patient Diagnosis/Problems Diagnosis/Problems (1) Acute respiratory failure with hypoxia and hypercapnia Status: Acute (2) COPD exacerbation Status: Acute (3) PNA (pneumonia) Status: Acute (4) Essential (primary) hypertension Status: Chronic (5) CAD (coronary artery disease) Status: Chronic (6) Obesity Status: Chronic KAREN TRINIDAD MD May 18, 2022 20:11
[2022-05-18] MEDS: ROSUVASTATIN 10 MG (CRESTOR) TABLET PO SCH (20:58)
[2022-05-18 22:46] VITALS: BP 116/56
[2022-05-19] MEDS: NS IV 500 ML 500 ML IV SCH (00:09)
[2022-05-19] MEDS: DexMEDEtomidine 250 ML DRIP 250 ML IV SCH (00:10)
[2022-05-19] MEDS: RT-ALBUTEROL/IPRATROPIUM 3 ML (DUONEB) VIAL IH SCH ×6 (02:40→22:16)
[2022-05-19 02:41] VITALS: BP 122/61
[2022-05-19 03:58] LABS: HEMATOCRIT 25 % (35-52); HEMOGLOBIN 7.8 g/dL (11.5-16.0); MEAN CORPUSCULAR HEMOGLOBIN 29 pg (25-34); MEAN CORPUSCULAR HGB CONC 32 g/dL (32-36); MEAN CORPUSCULAR VOLUME 90 fL (80-99); MEAN PLATELET VOLUME 10.9 fL (9.0-12.2); PLATELET COUNT 168 10^3/uL (130-400); WHITE BLOOD COUNT 3.5 10^3/uL (4.3-11.0)
[2022-05-19 04:16] LABS: CALCIUM 8.3 MG/DL (8.5-10.1)
[2022-05-19 04:20] LABS: PHOSPHORUS 3.2 MG/DL (2.3-4.7)
[2022-05-19 04:21] LABS: CREATININE SERUM 0.69 MG/DL (0.60-1.30)
[2022-05-19 04:23] LABS: MAGNESIUM 1.6 MG/DL (1.6-2.4)
[2022-05-19] MEDS: KCL 20 MEQ TAB (K-DUR) PO SCH (05:54)
[2022-05-19] MEDS: POTASSIUM CL 10MEQ/50ML IVPB 50 ML IV SCH (05:54)
[2022-05-19] MEDS: inSUlin ASPART (NovoLOG) 1 UNIT/0.01 ML (CHARGE PER UNIT) SC SCH ×4 (05:57→20:57)
[2022-05-19] MEDS: MAGNESIUM 1 GM/100 ML IVPB 100 ML IV SCH ×3 (06:14→07:44)
[2022-05-19] MEDS: RT--FLUTICASONE/SALMETEROL 113-14 (AIRDUO RespiCLICK) IH SCH ×2 (06:20→19:24)
[2022-05-19] MEDS: DOXYCYCLINE 100 MG (VIBRAMYCIN) TABLET PO SCH ×2 (06:24→16:06)
[2022-05-19] MEDS: predniSONE 20 MG TAB PO SCH (06:24)
--- NOTE | 2022-05-19 08:21 | Cardiology Progress Note ---
Subjective Date Seen by Provider: May 19, 2022 Time Seen by Provider: 08:20 Subjective/Events-last exam Patient was seen at bedside, laying down comfortably, maintained on Vapotherm Objective-Cardiology Exam Last Set of Vital Signs Vital Signs 05/19/22 05/19/22 05/19/22 05/19/22 06:22 07:00 07:19 08:00 Temp 37.1 Pulse 64 Resp 22 B/P (MAP) 114/57 (76) Pulse Ox 96 O2 Delivery Vapotherm O2 Flow Rate 20.00 50.00 FiO2 50 I&O Intake and Output 05/19/22 00:00 Intake Total 2700 ml Output Total 3415 ml Balance -715 ml Intake Oral 2200 ml IV Total 500 ml Output Urine Total 3415 ml # Bowel Movements 1 General: Alert, Cooperative HEENT: Atraumatic, PERRLA Neck: Supple, No JVD, No Thyromegaly Lungs: Normal Air Movement, Other (Bilateral rhonchi) Heart: Regular Rate, Normal S1, Normal S2, No Murmurs Abdomen: Normal Bowel Sounds, Soft, No Tenderness, No Hepatosplenomegaly, No Masses Extremities: No Clubbing, No Cyanosis, No Edema, Normal Pulses, No Tenderness/Swelling Skin: No Rashes, No Breakdown, No Significant Lesion Neuro: Normal Gait, Normal Speech, Strength at 5/5 X4 Ext, Normal Tone, Sensation Intact Psych/Mental Status: Mental Status NL, Mood NL Results Lab Laboratory Tests 05/19/22 03:26 A/P-Cardiology Admission Diagnosis Acute respiratory failure Acute change in mental status Sinus tachycardia Anemia Assessment/Plan Status post acute respiratory failure, acute exacerbation of COPD Baseline oxygen dependent at home, currently on Vapotherm Possible using BiPAP at home. Improving slowly. Managed by medical team Status post acute change in mental status, confusion. Probably secondary to hypoxemia, currently mental status is better, able to respond appropriately Transient episode of tachycardia with a heart rate 150, she was started on amiodarone drip, in sinus rhythm at this time Did not have any history of atrial fibrillation, I have discontinued amiodarone, continue to monitor for now. No changes are recommended Coronary artery disease, history of stenting done in [facility] about 10 years ago. Had a stress test recently. Continue to monitor, evaluate EKG Hypertension, maintained on Cardizem CD. Restart and monitor blood pressure Anemia, monitor H&H Stool for occult blood was negative Managed by primary care team NAE FORD MD May 19, 2022 08:20
[2022-05-19] MEDS: cefTRIAXone 1 GM PRE-MIX 50 ML IV SCH (08:35)
[2022-05-19] MEDS: PANTOPRAZOLE 40 MG (PROTONIX) VIAL IV SCH (08:35)
[2022-05-19] MEDS: dilTIAZem120 MG (CARDIZEM CD) CAP PO SCH (08:36)
[2022-05-19] MEDS ORDERED: acetaZOLAMIDE INJ 500 MG/5 ML (DIAMOX) VIAL IV NR (09:00)
[2022-05-19] MEDS: ALPRAZolam 0.25 MG (XANAX) TAB PO PRN (09:29)
--- NOTE | 2022-05-19 10:42 | Tele-ICU Progress Note ---
Subjective Date Seen by a Provider: May 19, 2022 Time Seen by a Provider: 10:40 Subjective/Events-last exam (Tele-ICU Physician , Progress Note ) Service provided via interactive audio and video telecommunications E-CARE system to a patient admitted to ICU bed in [facility]. Available chart/ vitals / labs / Images reviewed Video assessment done using teleICU camera, rest of exam as per RN Discussed with RN Events overnight : Afebrile hemodynamically stable Respiratory - VT I/O = even Drips: Pressors- no Patient is seen today due to persistent resp failure Consultants: cards Hospital course: 05/13 71 y/o female with hypercarbic resp failure BIPAP /05/14- VT 25L 45 % 05/15-VT 25L 55% 05/19 - VT 20L 30 % . precedex 0.4, DIMOX 500 x1 A/P Acute on chronic hypercarbic and hypoxic resp failure , due to AECOPD - cont NIPPV, ABG improved VT 20L 30 % today , AAO - monitor clinically ( check abg if more somnolent -on precedex 0.4 05/18 for BIPAP tolerance -try DIMOX 500 x1 Anxiety - precedex to wean off , prn xanax A fib RVR 05/13- SINUS now - started on amio , now on cardizem PO - AC as per cards Bacteremia with Coag neg staph vs comtaminamt - cx pending , to repeat 05/15 NEG -- NEG serology viral - UA and cxr negative -ABX to finish course AECOPD - cont nebs , steroids IV stopped 05/14 = on po prednisone 40 05/15 Acute mental status change on admission - due to hypercarbia - follow - CTH - no acute findings , toxicology negative - BACK TO BASELINE now Hyperkalemia - resolved DM - ISS Edema RUE and RUE -US VENOUS UPPER EXT RT- neg for DVT 05/13 , neg for DVT RLE 05/15 Anemia - chronic - Hb drop 05/14 from 9->7.5 - possible delutionsl - stable since DNI as per RN report start PT . try to move in bed ,IS Lines : periph , (Central Line Necessity Reviewed) Elizalde: + OG: Nutrition: po Analgesia: Anxiety/ delirium VTE Prophylaxis: amalia 40 Stress Ulcer Prophylaxis: PPI - on steroids Plans in collaboration with bedside consultants and IM MDs. Discussed with RN to reach out if any questions or concerns A total of 35 minutes of critical care time was devoted to this patient today, required to treat and/or prevent further deterioration of critical care condition ( as above ) . I am remotely monitoring this patient from another state. I am unable to do the bedside exam, and history/physical and pertinent information is taken from other notes in the computer and bedside staff. . Sepsis Event Evaluation Height, Weight, BMI Height: '" Weight: lbs. oz. kg; 32.59 BMI Method: Exam Exam Patient acknowledged, consented, and participated in this virtual visit which was conducted using real time audio/video Vital Signs Date Time Temp Pulse Resp B/P (MAP) Pulse Ox O2 Delivery O2 Flow Rate FiO2 05/19/22 10:00 81 45 129/61 (83) 94 Vapotherm 20.00 50.00 05/19/22 09:44 92 Vapotherm 20.00 45 05/19/22 09:43 98 Vapotherm 25.00 60 05/19/22 09:00 75 18 101/49 (66) 95 Vapotherm 20.00 50.00 05/19/22 08:23 95 Vapotherm 20.00 40 05/19/22 08:00 70 17 114/51 (72) 95 Vapotherm 20.00 50.00 05/19/22 08:00 37.1 05/19/22 07:19 64 05/19/22 07:00 65 22 114/57 (76) 96 Vapotherm 20.00 50.00 05/19/22 06:22 98 Vapotherm 25.00 50 05/19/22 06:00 63 16 116/70 (85) 98 Vapotherm 20.00 50.00 05/19/22 05:00 63 39 129/65 (86) 98 Vapotherm 20.00 50.00 05/19/22 04:10 63 129/65 05/19/22 04:00 67 17 128/74 (92) 96 Vapotherm 20.00 50.00 05/19/22 04:00 96 NIV Bilevel 40 05/19/22 03:00 66 25 140/66 (90) 97 Vapotherm 20.00 50.00 05/19/22 02:41 66 18 96 40.00 05/19/22 02:00 64 39 133/63 (86) 97 NIV Bilevel 40.00 05/19/22 01:00 65 05/19/22 01:00 65 14 132/64 (86) 97 NIV Bilevel 40.00 05/19/22 00:10 62 116/56 05/19/22 00:00 67 18 129/60 (83) 96 NIV Bilevel 40.00 05/18/22 23:59 97 NIV Bilevel 40 05/18/22 23:00 66 21 118/57 (77) 97 NIV Bilevel 40.00 05/18/22 22:46 62 17 97 40.00 05/18/22 22:00 64 19 135/67 (89) 98 NIV Bilevel 40.00 05/18/22 21:00 62 19 126/64 (84) 97 NIV Bilevel 40.00 05/18/22 20:00 70 19 144/72 (96) 96 NIV Bilevel 40.00 05/18/22 20:00 96 NIV Bilevel 40 05/18/22 19:11 36.3 NIV Bilevel 40.00 05/18/22 19:00 66 05/18/22 19:00 66 20 111/57 (75) 96 NIV Bilevel 40.00 05/18/22 18:34 75 21 95 40.00 05/18/22 18:00 77 25 133/70 (91) 94 Vapotherm 20.00 50.00 05/18/22 17:00 74 21 122/62 (82) 95 Vapotherm 20.00 50.00 05/18/22 16:00 37.0 05/18/22 16:00 73 24 120/58 (78) 97 Vapotherm 20.00 50.00 05/18/22 15:49 95 Vapotherm 20.00 50 05/18/22 15:03 96 Vapotherm 25.00 50 05/18/22 15:00 74 23 110/53 (72) 95 Vapotherm 20.00 50.00 05/18/22 14:00 76 18 124/57 (79) 95 Vapotherm 20.00 50.00 05/18/22 13:00 80 21 151/86 (107) 96 Vapotherm 20.00 50.00 05/18/22 12:24 77 05/18/22 12:00 36.7 05/18/22 12:00 78 20 160/75 (103) 96 Vapotherm 20.00 50.00 05/18/22 11:42 94 Vapotherm 20.00 50 05/18/22 11:21 Vapotherm 20.00 50.00 05/18/22 11:00 68 114/60 (78) 96 NIV Bilevel 40.00 I & O 05/19/22 07:00 Intake Total 3750 ml Output Total 3865 ml Balance -115 ml Height & Weight Height: '" Weight: lbs. oz. kg; 32.59 BMI Method: General Appearance: No Apparent Distress, Obese HEENT: PERRL/EOMI, Moist Mucous Membranes, Other (BiPAP in place) Neck: Full Range of Motion, Normal Inspection, Non Tender, Supple, Carotid Bruit Respiratory: Lungs Clear, No Respiratory Distress Cardiovascular: Regular Rate, Rhythm, No Murmur Capillary Refill: Less Than 3 Seconds Extremity: Normal Inspection, No Pedal Edema Neurologic/Psychiatric: Alert, Normal Mood/Affect Skin: Normal Color, Warm/Dry Lymphatic: No Adenopathy Results Lab Laboratory Tests 05/18/22 04:06 05/19/22 03:26 Assessment/Plan Assessment/Plan 1 NIVIA MOORE MD May 19, 2022 10:42
--- NOTE | 2022-05-19 11:27 | Physical Therapy Evaluation ---
PT Evaluation-General Medical Diagnosis Admission Date May 13, 2022 at 11:37 Medical Diagnosis: respiratory failure with hypoxia Onset Date: May 13, 2022 Therapy Diagnosis Therapy Diagnosis: generalized weakness/debility Precautions Precautions/Isolations: Standard Precautions Referral Physician: Elen Reason for Referral: Evaluation/Treatment Medical History Pertinent Medical History: CAD, COPD, DM, HTN Current History EMS secondary to family found patient AMS with SAO2 70% Reviewed History: Yes Social History Home: Single Level Current Living Status: Children Prior Prior Level of Function SCALE: Activities may be completed with or without assistive devices. 0-Pgulhzhcmc-ofxjucj completes the activity by him/herself with no assistance from a helper. 5-Set-up or Clean-up Assistance-helper sets up or cleans up; patient completes activity. [place] assists only prior to or following the activity. 4-Supervision or Touching Assistance-helper provides verbal cues and/or touching/steadying and/or contact guard assistance as patient completes activity. Assistance may be provided throughout the activity or intermittently. 3-Partial/Moderate Assistance-helper does LESS THAN HALF the effort. [place] lifts, holds or supports trunk or limbs, but provides less than half the effort. 2-Substantial/Maximal Assistance-helper does MORE THAN HALF the effort. [place] lifts or holds trunk or limbs and provides more than half the effort. 3-Dzaxplsoh-kpsbxg does ALL the effort. Patient does none of the effort to complete the activity. Or, the assistance of 2 or more helpers is required for the patient to complete the activity. If activity was not attempted, code reason: 7-Patient Refused. 9-Not Applicable-not attempted and the patient did not perform the activity before the current illness, exacerbation or injury. 10-Not Attempted due to Environmental Limitations-(lack of equipment, weather restraints, etc.). 88-Not Attempted due to Medical Conditions or Safety Concerns. Bed Mobility: 6 Transfers (B,C,W/C): 6 Gait: 6 Stairs: 6 Indoor Mobility (Ambulation): Independent Stairs: Independent Prior Devices Use: None per patient report PT Evaluation-Current Subjective Patient agrees to PT. Objective Patient Orientation: Normal For Age Attachments: Oxygen (vapotherm), Elizalde Catheter ROM/Strength ROM Lower Extremities bilateral LE WFL Strength Lower Extremities 3/5 grossly bilateral LE all planes Integumentary/Posture Bowel Incontinence: No Bladder Incontinence: Elizalde Cath Posture WFL Neuromuscular (Tone, Coordination, Reflexes) diminished coordination due to weakness and inactivity Sensory Vision: Wears Glasses Hearing: Functional Transfers Lying to Sitting/Side of Bed(Q: 3 Sit to Stand (QC): 3 Chair/Olf-as-Atiif Xfer(QC): 3 Gait Mode of Locomotion: Walk Anticipated Mode of Locomotion: Walk Walk 10 feet (QC): 3 Walk 50 ft with 2 Turns(QC): 88 Walk 150 ft (QC): 88 Distance: 10' Gait Assistive Device: FWW Comments/Gait Description unsteady due to weakness Balance Sitting Static: Normal Sitting Dynamic: Normal Standing Static: Fair Standing Dynamic: Fair Assessment/Needs Noted increase SOA with minimal activity with SAO2 93%. Patient instructed to stay up in recliner for 1 hour. Patient is adamant not to. Patient will benefit from skilled PT to address functional strength and mobility to improve current LOF. Rehab Potential: Guarded PT Mcfp Goals Research Technician Goals PT Mcfp Goals Time Frame: May 30, 2022 Roll Left & Right (QC): 6 Sit to Lying (QC): 6 Lying-Sitting on Side/Bed(QC): 6 Sit to Stand (QC): 6 Chair/Ozc-ng-Bpais Xfer(QC): 6 Toilet Transfer (QC): 6 Walk 10 feet (QC): 6 Walk 50ft with 2 Turns (QC): 6 Walk 150 ft (QC): 6 PT Plan Problem List Problem List: Activity Tolerance, Functional Strength, Safety, Balance, Gait, Transfer, Bed Mobility Treatment/Plan Treatment Plan: Continue Plan of Care Treatment Plan: Bed Mobility, Education, Functional Activity Delilah, Functional Strength, Gait, Safety, Therapeutic Exercise, Transfers Treatment Duration: May 30, 2022 Frequency: 6 times per week Estimated Hrs Per Day: .25 hour per day Patient and/or Family Agrees t: Yes Time Time In: 1030 Time Out: 1043 DATE: May 19, 2022 Total Billed Treatment Time: 13 Total Billed Treatment 1 visit EVModC 13 min TYRESE ADLER PT May 19, 2022 11:27
[2022-05-19] MEDS: ENOXAPARIN 40 MG/0.4 ML (LOVENOX) SYR SC SCH (11:46)
--- NOTE | 2022-05-19 17:26 | Progress Note - Hospitalist ---
Subjective HPI/CC On Admission Date Seen by Provider: May 19, 2022 Time Seen by Provider: 09:05 Patient is 71-year-old female who presented to the emergency department due to to mental status. She is unable to provide any history and so all history is obtained from the record. She was found confused by her family and they believe she fell off the couch but they are not certain of those details. She had a CT of her head which was negative for intracranial hemorrhage. She was hypoxic when EMS arrived with sats in the 70s. She was placed on a nonrebreather and her oxygen improved but she remained lethargic and ABG revealed profound hypercapnia with a CO2 of greater than 130. She was placed on BiPAP and transferred here to the ICU. Unfortunately in transfer she did not have CPAP so has just now been replaced on BiPAP just now. Subjective/Events-last exam She is feeling a little better. She is still short of breath and weak. Objective Exam Vital Signs Vital Signs Date Time Temp Pulse Resp B/P (MAP) Pulse Ox O2 Delivery O2 Flow Rate FiO2 05/19/22 15:51 36.6 05/19/22 15:27 97 Vapotherm 20.00 45 05/19/22 14:00 81 17 156/73 (100) Capillary Refill : Less Than 3 Seconds General Appearance: No Apparent Distress, Obese Respiratory: Lungs Clear, No Respiratory Distress, Decreased Breath Sounds Cardiovascular: Regular Rate, Rhythm, No Murmur Gastrointestinal: Normal Bowel Sounds, Soft Extremity: Normal Inspection, No Pedal Edema Neurologic/Psychiatric: Alert, Normal Mood/Affect Skin: Normal Color, Warm/Dry Results/Procedures Lab Laboratory Tests 05/19/22 03:26 Patient resulted labs reviewed. Imaging: Reviewed Imaging Report Assessment/Plan Assessment and Plan Assess & Plan/Chief Complaint Acute on chronic respiratory failure with hypoxia and hypercapnia COPD Exacerbation PNA BiPAP at night and as needed Steroids TeleICU following MAT protocol Rocephin and Doxycycline Will likely need home BiPAP, social work assistance appreciated Debility PT/OT HTN BP well controlled T2DM Hold metformin Anticipate higher blood sugars with steroids SSI CAD No acute needs, continue home meds Social situation Daughter reports to RN that patient had bed bugs in home Social work following DVT ppx: Lovenox Tachycardia, resolved Critical Care Critically Ill Patient Diagnosis/Problems Diagnosis/Problems (1) Acute respiratory failure with hypoxia and hypercapnia Status: Acute (2) COPD exacerbation Status: Acute (3) PNA (pneumonia) Status: Acute (4) Essential (primary) hypertension Status: Chronic (5) CAD (coronary artery disease) Status: Chronic (6) Obesity Status: Chronic KAREN TRINIDAD MD May 19, 2022 17:26
[2022-05-19] MEDS: ROSUVASTATIN 10 MG (CRESTOR) TABLET PO SCH (20:30)
[2022-05-20] MEDS ORDERED: dilTIAZem DRIP PRE-MIX 125 ML IV SCH
[2022-05-20] MEDS: RT-ALBUTEROL/IPRATROPIUM 3 ML (DUONEB) VIAL IH SCH ×6 (02:21→22:30)
[2022-05-20 02:22] VITALS: BP 90/48
[2022-05-20 04:10] LABS: HEMATOCRIT 28 % (35-52); HEMOGLOBIN 8.6 g/dL (11.5-16.0); MEAN CORPUSCULAR HEMOGLOBIN 28 pg (25-34); MEAN CORPUSCULAR HGB CONC 31 g/dL (32-36); MEAN CORPUSCULAR VOLUME 91 fL (80-99); MEAN PLATELET VOLUME 10.5 fL (9.0-12.2); PLATELET COUNT 204 10^3/uL (130-400); WHITE BLOOD COUNT 5.2 10^3/uL (4.3-11.0)
[2022-05-20 04:51] LABS: POTASSIUM 3.6 MMOL/L (3.6-5.0)
[2022-05-20 04:53] LABS: CALCIUM 8.4 MG/DL (8.5-10.1)
[2022-05-20 04:57] LABS: CREATININE SERUM 0.72 MG/DL (0.60-1.30); PHOSPHORUS 3.8 MG/DL (2.3-4.7)
[2022-05-20] MEDS: inSUlin ASPART (NovoLOG) 1 UNIT/0.01 ML (CHARGE PER UNIT) SC SCH ×4 (05:10→21:04)
[2022-05-20] MEDS: POTASSIUM CL 10MEQ/50ML IVPB 50 ML IV SCH (05:11)
[2022-05-20] MEDS: KCL 20 MEQ TAB (K-DUR) PO SCH (05:11)
[2022-05-20] MEDS: MAGNESIUM 1 GM/100 ML IVPB 100 ML IV SCH (05:11)
[2022-05-20] MEDS: predniSONE 20 MG TAB PO SCH (06:25)
[2022-05-20] MEDS: DOXYCYCLINE 100 MG (VIBRAMYCIN) TABLET PO SCH ×2 (06:25→17:39)
[2022-05-20] MEDS: RT--FLUTICASONE/SALMETEROL 113-14 (AIRDUO RespiCLICK) IH SCH ×2 (06:27→22:31)
[2022-05-20] MEDS ORDERED: KCL 20 MEQ TAB (K-DUR) PO ONE (08:00)
[2022-05-20] MEDS: ALPRAZolam 0.25 MG (XANAX) TAB PO PRN (08:09)
[2022-05-20] MEDS: dilTIAZem120 MG (CARDIZEM CD) CAP PO SCH (08:09)
[2022-05-20] MEDS: cefTRIAXone 1 GM PRE-MIX 50 ML IV SCH (08:10)
[2022-05-20] MEDS: PANTOPRAZOLE 40 MG (PROTONIX) VIAL IV SCH (08:10)
[2022-05-20] MEDS ORDERED: COLLAGENASE 30 GM (SANTYL) TUBE TP SCH (09:00)
--- NOTE | 2022-05-20 09:00 | Cardiology Progress Note ---
Subjective Date Seen by Provider: May 20, 2022 Time Seen by Provider: 08:40 Subjective/Events-last exam Patient in bed, no new complaints Review of Systems General: No Chills, No Night Sweats; Fatigue; No Malaise, No Appetite, No Other HEENT: No Head Aches, No Visual Changes, No Eye Pain, No Ear Pain, No Dysphasia, No Sinus Congestion, No Post Nasal Drip, No Sore Throat, No Other Pulmonary: Dyspnea; No Cough, No Pleuritic Chest Pain, No Other Cardiovascular: No: Chest Pain, Palpitations, Orthopnea, Paroxysmal Noc. Dysp tomasa, Edema, Lt Headedness, Other Objective-Cardiology Exam Last Set of Vital Signs Vital Signs 05/20/22 05/20/22 05/20/22 08:00 11:48 12:00 Temp 36.5 Pulse 77 Resp 28 B/P (MAP) 132/59 (83) Pulse Ox 93 O2 Delivery Vapotherm O2 Flow Rate 20.00 35.00 FiO2 35 I&O Intake and Output 05/20/22 00:00 Intake Total 2950 ml Output Total 3575 ml Balance -625 ml Intake Oral 1700 ml IV Total 1250 ml Output Urine Total 3575 ml General: Alert, Cooperative HEENT: Atraumatic, PERRLA Neck: Supple, No JVD, No Thyromegaly Lungs: Normal Air Movement, Other (Bilateral rhonchi) Heart: Regular Rate, Normal S1, Normal S2, No Murmurs Abdomen: Normal Bowel Sounds, Soft, No Tenderness, No Hepatosplenomegaly, No Masses Extremities: No Clubbing, No Cyanosis, No Edema, Normal Pulses, No Tenderness/Swelling Skin: No Rashes, No Breakdown, No Significant Lesion Neuro: Normal Gait, Normal Speech, Strength at 5/5 X4 Ext, Normal Tone, Sensation Intact Psych/Mental Status: Mental Status NL, Mood NL Results Lab Laboratory Tests 05/20/22 03:58 A/P-Cardiology Admission Diagnosis Acute respiratory failure Acute change in mental status Sinus tachycardia Anemia Assessment/Plan Status post acute respiratory failure, acute exacerbation of COPD Baseline oxygen dependent at home, currently on Vapotherm Possible using BiPAP at home. Improving slowly. Managed by medical team Status post acute change in mental status, confusion. Probably secondary to hypoxemia, currently mental status is better, able to respond appropriately Transient episode of tachycardia with a heart rate 150, she was started on amiodarone drip, in sinus rhythm at this time Did not have any history of atrial fibrillation, Amiodarone was discontinued, will continue to monitor. Coronary artery disease, history of stenting done in [facility] about 10 years ago. Had a stress test recently. Continue to monitor, evaluate EKG Hypertension, maintained on Cardizem CD. Restart and monitor blood pressure Anemia, monitor H&H Stool for occult blood was negative Managed by primary care team Supervisory-Addendum Brief Supervisory Addendum Participated in pt care: history, MDM, physical Personally performed: exam, history, MDM Care discussed with: KODI Results interpretation: Verified all documentation Notes: Patient was seen and evaluated with Brenda, examination performed, management plan was discussed, agree with the current scribed note, I made few changes to the note using Italic font Patient was seen at bedside, laying down comfortably, still on Vapotherm Managed by medical team, continue to monitor BRENDA KENDRICK May 20, 2022 09:00 NAE FORD MD May 20, 2022 12:37
--- NOTE | 2022-05-20 09:07 | Physical Therapy Daily Note ---
PT Daily Note-Current Subjective Patient in bed pre tx, agrees reluctantly to exercises in bed, has no complaints of pain. Encouraged patient to get out of bed but she says she was in the recliner for hours yesterday and needs a few hours to clear her head. Pain Section J - Health Conditions 1. Rarely or not at all 2. Occasionally 3. Frequently 4. Almost constantly 8. Unable to answer Pain Effect on Sleep: 1 Pain Interference with Therapy: 1 Pain Interference w/Day-to-Day: 1 Appearance Patient in bed post tx with nurse call, phone, tray, all needs met. Mental Status Patient Orientation: Person, Place, Situation Attachments: Oxygen (vapotherm), Elizalde Catheter, IV Transfers SCALE: Activities may be completed with or without assistive devices. 3-Wnfchfhkkh-zjrmmut completes the activity by him/herself with no assistance from a helper. 5-Set-up or Clean-up Assistance-helper sets up or cleans up; patient completes activity. [place] assists only prior to or following the activity. 4-Supervision or Touching Assistance-helper provides verbal cues and/or touching/steadying and/or contact guard assistance as patient completes activity. Assistance may be provided throughout the activity or intermittently. 3-Partial/Moderate Assistance-helper does LESS THAN HALF the effort. [place] lifts, holds or supports trunk or limbs, but provides less than half the effort. 2-Substantial/Maximal Assistance-helper does MORE THAN HALF the effort. [place] lifts or holds trunk or limbs and provides more than half the effort. 9-Jiaaxptzm-vrmlwv does ALL the effort. Patient does none of the effort to complete the activity. Or, the assistance of 2 or more helpers is required for the patient to complete the activity. If activity was not attempted, code reason: 7-Patient Refused. 9-Not Applicable-not attempted and the patient did not perform the activity before the current illness, exacerbation or injury. 10-Not Attempted due to Environmental Limitations-(lack of equipment, weather restraints, etc.). 88-Not Attempted due to Medical Conditions or Safety Concerns. Exercises Supine Ex: Ankle pumps, Quad Set, Glut sets, Heel Slides, Hip abd/add Supine Reps: 20 Treatments BLE ROM Assessment Current Status: Fair Progress Patient performed exercises well, she says she will get out of bed with nursing later. PT Fdc Goals Document Management Analyst Goals PT Document Management Analyst Goals Time Frame: May 30, 2022 Roll Left & Right (QC): 6 Sit to Lying (QC): 6 Lying-Sitting on Side/Bed(QC): 6 Sit to Stand (QC): 6 Chair/Ela-sz-Rjaim Xfer(QC): 6 Toilet Transfer (QC): 6 Walk 10 feet (QC): 6 Walk 50ft with 2 Turns (QC): 6 Walk 150 ft (QC): 6 PT Plan Problem List Problem List: Activity Tolerance, Functional Strength, Safety, Balance, Gait, Transfer, Bed Mobility, ROM Treatment/Plan Treatment Plan: Continue Plan of Care Treatment Plan: Bed Mobility, Education, Functional Activity Delilah, Functional Strength, Gait, Safety, Therapeutic Exercise, Transfers Treatment Duration: May 30, 2022 Frequency: 6 times per week Estimated Hrs Per Day: .25 hour per day Patient and/or Family Agrees t: Yes Safety Risks/Education Patient Education: Correct Positioning, Safety Issues Teaching Recipient: Patient Teaching Methods: Demonstration, Discussion Response to Teaching: Reinforcement Needed Time Time In: 0840 Time Out: 0852 DATE: May 20, 2022 Total Billed Treatment Time: 12 Total Billed Treatment 1 visit CAR MAYES PT May 20, 2022 09:07
[2022-05-20] MEDS ORDERED: acetaZOLAMIDE INJ 500 MG/5 ML (DIAMOX) VIAL IV NR (10:00)
--- NOTE | 2022-05-20 10:10 | Tele-ICU Progress Note ---
Subjective Date Seen by a Provider: May 20, 2022 Time Seen by a Provider: 10:10 Subjective/Events-last exam (Tele-ICU Physician , Progress Note ) Service provided via interactive audio and video telecommunications E-CARE system to a patient admitted to ICU bed in [facility]. Available chart/ vitals / labs / Images reviewed Video assessment done using teleICU camera, rest of exam as per RN Discussed with RN Events overnight : Afebrile hemodynamically stable Respiratory - VT I/O = neg 600 Drips: Pressors- no Patient is seen today due to persistent resp failure Consultants: kayla Hospital course: 05/13 71 y/o female with hypercarbic resp failure BIPAP /05/14- VT 25L 45 % 05/15-VT 25L 55% 05/19 - VT 20L 30 % . precedex 0.4, DIMOX 500 x1 05/20= VT 20L 45%. CARDIZEM GTT A/P Acute on chronic hypercarbic and hypoxic resp failure , due to AECOPD - cont NIPPV, ABG improved VT 20L 30 % today , AAO - monitor clinically ( check abg if more somnolent -on precedex 0.4 05/18 for BIPAP tolerance - DIMOX 500 x1 - GOOD UO < BICARB IMPROVED _ WILL DO DOSE TODAY Anxiety - precedex OFF , prn xanax A fib RVR 05/13- SINUS now - started on amio ,on cardizem PO - RESUMED CARDIZEM GTT ON 05/19 - AC as per cards - on proph dose lovenox only Bacteremia with Coag neg staph vs comtaminamt - cx pending , to repeat 05/15 NEG -- NEG serology viral - UA and cxr negative -ABX to finish course AECOPD - cont nebs , steroids IV stopped 05/14 = on po prednisone 40 05/15 Acute mental status change on admission - due to hypercarbia - follow - CTH - no acute findings , toxicology negative - BACK TO BASELINE now Hyperkalemia - resolved DM - ISS Edema RUE and RUE -US VENOUS UPPER EXT RT- neg for DVT 05/13 , neg for DVT RLE 05/15 Anemia - chronic - Hb drop 05/14 from 9->7.5 - possible delutionsl - stable since DNI as per RN report start PT . try to move in bed ,IS Lines : periph , (Central Line Necessity Reviewed) Elizalde: + OG: Nutrition: po adequate Analgesia: Anxiety/ delirium VTE Prophylaxis: amalia 40 Stress Ulcer Prophylaxis: PPI - on steroids Plans in collaboration with bedside consultants and IM MDs. Discussed with RN to reach out if any questions or concerns A total of 35 minutes of critical care time was devoted to this patient today, required to treat and/or prevent further deterioration of critical care con dition ( as above ) . I am remotely monitoring this patient from another state. I am unable to do the bedside exam, and history/physical and pertinent information is taken from other notes in the computer and bedside staff. . Sepsis Event Evaluation Height, Weight, BMI Height: '" Weight: lbs. oz. kg; 32.59 BMI Method: Exam Exam Patient acknowledged, consented, and participated in this virtual visit which was conducted using real time audio/video Vital Signs Date Time Temp Pulse Resp B/P (MAP) Pulse Ox O2 Delivery O2 Flow Rate FiO2 05/20/22 09:00 72 20 99/46 (63) 95 Vapotherm 20.00 45.00 05/20/22 08:00 36.5 05/20/22 08:00 74 21 121/54 (76) 94 Vapotherm 20.00 45.00 05/20/22 07:50 96 Vapotherm 20.00 45 05/20/22 07:36 71 05/20/22 07:00 71 20 116/74 (88) 95 Vapotherm 20.00 45.00 05/20/22 06:27 95 Vapotherm 20.00 45 05/20/22 06:00 70 16 109/54 (72) 93 Vapotherm 20.00 45.00 05/20/22 05:00 67 29 105/82 (90) 98 NIV Bilevel 40.00 05/20/22 04:46 67 101/50 05/20/22 04:00 98 NIV Bilevel 40 05/20/22 04:00 71 14 101/50 (67) 99 NIV Bilevel 40.00 05/20/22 03:29 37.0 05/20/22 03:00 66 30 92/47 (62) 99 NIV Bilevel 40.00 05/20/22 02:22 66 19 96 40.00 12/21/22 02:00 62 14 104/81 (89) 98 NIV Bilevel 40.00 05/20/22 01:47 61 87/48 05/20/22 01:25 NIV Bilevel 40.00 05/20/22 01:00 62 05/20/22 01:00 62 14 95/54 (68) 98 Vapotherm 20.00 45.00 05/20/22 00:43 138 135/68 05/20/22 00:00 138 16 104/81 (89) 97 Vapotherm 20.00 45.00 05/19/22 23:59 96 Vapotherm 20.00 45 05/19/22 23:52 37.1 05/19/22 23:31 135/68 05/19/22 23:00 71 22 135/68 (90) 96 Vapotherm 20.00 45.00 05/19/22 22:39 154 162/78 05/19/22 22:16 97 Vapotherm 20.00 45 05/19/22 22:00 77 26 120/84 (96) 95 Vapotherm 20.00 45.00 05/19/22 21:25 154 162/78 05/19/22 21:00 78 43 164/75 (104) 97 Vapotherm 20.00 45.00 05/19/22 20:00 78 31 162/78 (106) 97 Vapotherm 20.00 45.00 05/19/22 20:00 94 Vapotherm 20.00 45 05/19/22 19:25 98 Vapotherm 20.00 45 05/19/22 19:24 94 Vapotherm 20.00 45 05/19/22 19:20 36.5 Vapotherm 20.00 45.00 05/19/22 19:00 84 22 164/71 (102) 94 Vapotherm 20.00 45.00 05/19/22 19:00 85 05/19/22 18:00 81 41 168/80 (109) 96 Vapotherm 20.00 45.00 05/19/22 17:42 151 160/74 05/19/22 17:00 80 32 160/74 (102) 95 Vapotherm 20.00 45.00 05/19/22 16:00 81 20 156/73 (100) 96 Vapotherm 20.00 45.00 05/19/22 15:51 36.6 05/19/22 15:27 97 Vapotherm 20.00 45 05/19/22 15:00 77 17 162/82 (108) 97 Vapotherm 20.00 45.00 05/19/22 14:19 96 Vapotherm 20.00 45 05/19/22 14:00 81 17 156/73 (100) 94 Vapotherm 20.00 45.00 05/19/22 13:00 88 25 153/74 (100) 95 Vapotherm 20.00 45.00 05/19/22 12:37 85 05/19/22 12:00 83 26 150/75 (100) 96 Vapotherm 20.00 45.00 05/19/22 12:00 95 Vapotherm 20.00 45 05/19/22 11:49 36.8 05/19/22 11:00 Vapotherm 20.00 45.00 05/19/22 11:00 86 25 148/67 (94) 95 Vapotherm 20.00 45.00 I & O 05/20/22 07:00 Intake Total 1900 ml Output Total 3325 ml Balance -1425 ml Height & Weight Height: '" Weight: lbs. oz. kg; 32.59 BMI Method: General Appearance: No Apparent Distress, Obese HEENT: PERRL/EOMI, Moist Mucous Membranes, Other (BiPAP in place) Neck: Full Range of Motion, Normal Inspection, Non Tender, Supple, Carotid Bruit Respiratory: Lungs Clear, No Respiratory Distress, Decreased Breath Sounds Cardiovascular: Regular Rate, Rhythm, No Murmur Capillary Refill: Less Than 3 Seconds Extremity: Normal Inspection, No Pedal Edema Neurologic/Psychiatric: Alert, Normal Mood/Affect Skin: Normal Color, Warm/Dry Lymphatic: No Adenopathy Results Lab Laboratory Tests 05/19/22 03:26 05/20/22 03:58 Assessment/Plan Assessment/Plan 1 NIVIA MOORE MD May 20, 2022 10:10
--- NOTE | 2022-05-20 14:04 | Progress Note - Hospitalist ---
Subjective HPI/CC On Admission Date Seen by Provider: May 20, 2022 Time Seen by Provider: 08:45 Patient is 71-year-old female who presented to the emergency department due to to mental status. She is unable to provide any history and so all history is obtained from the record. She was found confused by her family and they believe she fell off the couch but they are not certain of those details. She had a CT of her head which was negative for intracranial hemorrhage. She was hypoxic when EMS arrived with sats in the 70s. She was placed on a nonrebreather and her oxygen improved but she remained lethargic and ABG revealed profound hypercapnia with a CO2 of greater than 130. She was placed on BiPAP and transferred here to the ICU. Unfortunately in transfer she did not have CPAP so has just now been replaced on BiPAP just now. Subjective/Events-last exam She is feeling a little better. She is sitting in bed doing exercises with PT. She is still getting a bit short of breath. She was able to wear her BiPAP last night. Objective Exam Vital Signs Vital Signs Date Time Temp Pulse Resp B/P (MAP) Pulse Ox O2 Delivery O2 Flow Rate FiO2 05/20/22 13:00 82 25 142/63 (89) 92 Vapotherm 20.00 35.00 05/20/22 11:48 35 05/20/22 08:00 36.5 Capillary Refill : Less Than 3 Seconds General Appearance: No Apparent Distress, Obese Respiratory: No Respiratory Distress, Decreased Breath Sounds Cardiovascular: Regular Rate, Rhythm, No Murmur Gastrointestinal: Normal Bowel Sounds, Soft Extremity: Normal Inspection, No Pedal Edema Neurologic/Psychiatric: Alert, Motor Weakness Skin: Normal Color, Warm/Dry Results/Procedures Lab Laboratory Tests 05/20/22 03:58 Patient resulted labs reviewed. Imaging: Reviewed Imaging Report Assessment/Plan Assessment and Plan Assess & Plan/Chief Complaint Acute on chronic respiratory failure with hypoxia and hypercapnia COPD Exacerbation PNA BiPAP at night and as needed Currently on Vapotherm, wean as able to nasal cannula Steroids TeleICU following MAT protocol Rocephin and Doxycycline Social work assisting with obtaining home BiPAP Debility PT/OT IRU evaluation HTN BP well controlled T2DM Hold metformin SSI CAD No acute needs, continue home meds Social situation Daughter reports to RN that patient had bed bugs in home Social work following DVT ppx: Lovenox Tachycardia, resolved Critical Care Critically Ill Patient Diagnosis/Problems Diagnosis/Problems (1) Acute respiratory failure with hypoxia and hypercapnia Status: Acute (2) COPD exacerbation Status: Acute (3) PNA (pneumonia) Status: Acute (4) Essential (primary) hypertension Status: Chronic (5) CAD (coronary artery disease) Status: Chronic (6) Obesity Status: Chronic KAREN TRINIDAD MD May 20, 2022 14:04
[2022-05-20] MEDS: ENOXAPARIN 40 MG/0.4 ML (LOVENOX) SYR SC SCH (14:05)
[2022-05-20] MEDS: LORazepam 0.5 MG (ATIVAN) TABLET PO PRN (14:05)
[2022-05-20] MEDS: ROSUVASTATIN 10 MG (CRESTOR) TABLET PO SCH (20:15)
[2022-05-21 00:15] VITALS: BP 147/71
[2022-05-21] MEDS: RT-ALBUTEROL/IPRATROPIUM 3 ML (DUONEB) VIAL IH SCH ×6 (02:11→22:49)
[2022-05-21 03:44] LABS: HEMATOCRIT 27 % (35-52); HEMOGLOBIN 8.3 g/dL (11.5-16.0); MEAN CORPUSCULAR HEMOGLOBIN 29 pg (25-34); MEAN CORPUSCULAR HGB CONC 31 g/dL (32-36); MEAN CORPUSCULAR VOLUME 92 fL (80-99); PLATELET COUNT 214 10^3/uL (130-400)
[2022-05-21 03:56] LABS: POTASSIUM 3.9 MMOL/L (3.6-5.0)
[2022-05-21 03:57] LABS: CALCIUM 8.4 MG/DL (8.5-10.1)
[2022-05-21 04:02] LABS: CREATININE SERUM 0.75 MG/DL (0.60-1.30); PHOSPHORUS 4.1 MG/DL (2.3-4.7)
[2022-05-21 04:04] LABS: MAGNESIUM 1.9 MG/DL (1.6-2.4)
[2022-05-21] MEDS: KCL 20 MEQ TAB (K-DUR) PO SCH (05:14)
[2022-05-21] MEDS: MAGNESIUM 1 GM/100 ML IVPB 100 ML IV SCH (05:14)
[2022-05-21] MEDS: POTASSIUM CL 10MEQ/50ML IVPB 50 ML IV SCH (05:14)
[2022-05-21] MEDS: inSUlin ASPART (NovoLOG) 1 UNIT/0.01 ML (CHARGE PER UNIT) SC SCH ×4 (05:14→21:30)
[2022-05-21] MEDS: predniSONE 20 MG TAB PO SCH (07:26)
[2022-05-21] MEDS: DOXYCYCLINE 100 MG (VIBRAMYCIN) TABLET PO SCH ×2 (07:27→17:09)
--- NOTE | 2022-05-21 08:14 | Cardiology Progress Note ---
Subjective Date Seen by Provider: May 21, 2022 Time Seen by Provider: 08:13 Subjective/Events-last exam Patient was seen at bedside, laying down comfortably, feeling better Review of Systems General: No Chills, No Night Sweats; Fatigue; No Malaise, No Appetite, No Other HEENT: No Head Aches, No Visual Changes, No Eye Pain, No Ear Pain, No Dysphasia, No Sinus Congestion, No Post Nasal Drip, No Sore Throat, No Other Pulmonary: Dyspnea; No Cough, No Pleuritic Chest Pain, No Other Cardiovascular: No: Chest Pain, Palpitations, Orthopnea, Paroxysmal Noc. Dyspnea, Edema, Lt Headedness, Other Objective-Cardiology Exam Last Set of Vital Signs Vital Signs 05/21/22 05/21/22 05/21/22 05/21/22 06:00 07:00 07:40 07:50 Temp 37.0 Pulse 71 Resp 16 B/P (MAP) 137/56 (83) Pulse Ox 94 O2 Delivery Vapotherm O2 Flow Rate 15.00 FiO2 45 I&O Intake and Output 05/21/22 00:00 Intake Total 1650 ml Output Total 2000 ml Balance -350 ml Intake Oral 1600 ml IV Total 50 ml Output Urine Total 2000 ml General: Alert, Cooperative HEENT: Atraumatic, PERRLA Neck: Supple, No JVD, No Thyromegaly Lungs: Normal Air Movement, Other (Bilateral rhonchi) Heart: Regular Rate, Normal S1, Normal S2, No Murmurs Abdomen: Normal Bowel Sounds, Soft, No Tenderness, No Hepatosplenomegaly, No Masses Extremities: No Clubbing, No Cyanosis, No Edema, Normal Pulses, No Tenderness/Swelling Skin: No Rashes, No Breakdown, No Significant Lesion Neuro: Normal Gait, Normal Speech, Strength at 5/5 X4 Ext, Normal Tone, Sensation Intact Psych/Mental Status: Mental Status NL, Mood NL Results Lab Laboratory Tests 05/21/22 03:34 A/P-Cardiology Admission Diagnosis Acute respiratory failure Acute change in mental status Sinus tachycardia Anemia Assessment/Plan Status post acute respiratory failure, acute exacerbation of COPD Baseline oxygen dependent at home, currently on Vapotherm Possible using BiPAP at home. Improving slowly. Managed by medical team Status post acute change in mental status, confusion. Probably secondary to hypoxemia, currently mental status is better, able to respond appropriately Transient episode of tachycardia with a heart rate 150, she was started on amiodarone drip, in sinus rhythm at this time Did not have any history of atrial fibrillation, Amiodarone was discontinued, will continue to monitor. Coronary artery disease, history of stenting done in [facility] about 10 years ago. Had a stress test recently. Continue to monitor, evaluate EKG Hypertension, maintained on Cardizem CD. Restart and monitor blood pressure Anemia, monitor H&H Stool for occult blood was negative Managed by primary care team NAE FORD MD May 21, 2022 08:13
[2022-05-21] MEDS: cefTRIAXone 1 GM PRE-MIX 50 ML IV SCH (08:30)
[2022-05-21] MEDS: PANTOPRAZOLE 40 MG (PROTONIX) VIAL IV SCH (08:30)
[2022-05-21] MEDS: dilTIAZem120 MG (CARDIZEM CD) CAP PO SCH (08:30)
[2022-05-21] MEDS: ALPRAZolam 0.25 MG (XANAX) TAB PO PRN (08:59)
[2022-05-21 09:03] LABS: ABG BASE EXCESS 6.1 MMOL/L (-2.5-2.5); ABG OXYGEN SATURATION 97 % (94-100); ABG PCO2 66 MMHG (35-45); ABG PO2 77 MMHG (79-93); ABG TCO2 34.3 MMOL/L (21.0-31.0)
[2022-05-21 09:04] LABS: ABG PH 7.31 (7.37-7.43)
[2022-05-21 09:05] LABS: PATIENT TEMP 36.4; VENTILATOR NO
--- NOTE | 2022-05-21 09:23 | Tele-ICU Progress Note ---
Subjective Date Seen by a Provider: May 21, 2022 Time Seen by a Provider: 09:22 Subjective/Events-last exam (Tele-ICU Physician , Progress Note ) Service provided via interactive audio and video telecommunications E-CARE system to a patient admitted to ICU bed in [facility]. Available chart/ vitals / labs / Images reviewed Video assessment done using teleICU camera, rest of exam as per RN Discussed with RN Events overnight : Afebrile hemodynamically stable Respiratory - VT I/O = neg 600 Drips: Pressors- no Patient is seen today due to persistent resp failure Consultants: kayla Hospital course: 05/13 71 y/o female with hypercarbic resp failure BIPAP 17/10 05/14- VT 25L 45 % 05/15-VT 25L 55% 05/19 - VT 20L 30 % . precedex 0.4, DIMOX 500 x1 05/20= VT 20L 45%. CARDIZEM GTT, diamox 500 x1 05/21- VT15L 45% , refused BIPAP at night A/P Acute on chronic hypercarbic and hypoxic resp failure , due to AECOPD - cont NIPPV, ABG improved refused BIPAP at night , VT15L 45% today , AAO - DIMOX 500 x1 - GOOD UO < BICARB IMPROVED _ WILL HOLD DOSE TODAY Anxiety - precedex OFF , prn xanax A fib RVR 05/13- SINUS now - started on amio ,on cardizem PO - RESUMED CARDIZEM GTT ON 05/19- OFF cardizem overnight - AC as per cards - on proph dose lovenox only Bacteremia with Coag neg staph vs comtaminamt - cx pending , to repeat 05/15 NEG -- NEG serology viral - UA and cxr negative -ABX to finish course tady daty 5 - will stop recephin , finish doxy AECOPD - cont nebs , steroids IV stopped 05/14 = on po prednisone 40 05/15 Acute mental status change on admission - due to hypercarbia - follow - CTH - no acute findings , toxicology negative - BACK TO BASELINE now Hyperkalemia - resolved DM - ISS Edema RUE and RUE -US VENOUS UPPER EXT RT- neg for DVT 05/13 , neg for DVT RLE 05/15 Anemia - chronic - Hb drop 12/15 from 9->7.5 - possible delutionsl - stable since DNI as per RN report start PT . try to move in bed ,IS up to chair bisd, PT Lines : periph , (Central Line Necessity Reviewed) Elizalde: + OG: Nutrition: po adequate Analgesia: Anxiety/ delirium VTE Prophylaxis: amalia 40 Stress Ulcer Prophylaxis: PPI - on steroids Plans in collaboration with bedside consultants and IM MDs. Discussed with RN to reach out if any questions or concerns A total of 33 minutes of critical care time was devoted to this patient today, required to treat and/or prevent further deterioration of critical care condition ( as above ) . I am remotely monitoring this patient from another state. I am unable to do the bedside exam, and history/physical and pertinent information is taken from other notes in the computer and bedside staff. . Sepsis Event Evaluation Height, Weight, BMI Height: '" Weight: lbs. oz. kg; 32.59 BMI Method: Exam Exam Patient acknowledged, consented, and participated in this virtual visit which was conducted using real time audio/video Vital Signs Date Time Temp Pulse Resp B/P (MAP) Pulse Ox O2 Delivery O2 Flow Rate FiO2 05/21/22 08:00 74 18 165/59 (94) 95 Vapotherm 15.00 45.00 05/21/22 07:50 94 Vapotherm 15.00 45 05/21/22 07:40 37.0 05/21/22 07:00 71 17 146/66 (92) 95 Vapotherm 15.00 45.00 05/21/22 07:00 71 05/21/22 06:43 95 Vapotherm 15.00 45 05/21/22 06:00 67 16 137/56 (83) 97 Vapotherm 20.00 55.00 05/21/22 05:00 66 20 134/55 (81) 96 Vapotherm 20.00 55.00 05/21/22 04:00 65 19 124/59 (80) 94 Vapotherm 20.00 55.00 05/21/22 03:56 94 Vapotherm 20.00 50 05/21/22 03:32 36.7 05/21/22 03:00 67 17 129/55 (79) 96 Vapotherm 20.00 55.00 05/21/22 02:00 64 27 130/57 (81) 95 Vapotherm 20.00 55.00 05/21/22 01:00 70 05/21/22 01:00 72 31 148/68 (94) 96 Vapotherm 20.00 55.00 05/21/22 00:15 36.8 94 72 05/21/22 00:00 68 24 128/67 (87) 94 Vapotherm 20.00 55.00 05/20/22 23:59 94 Vapotherm 20.00 50 05/20/22 23:37 36.8 05/20/22 23:12 87 20.00 35 05/20/22 23:00 72 24 128/67 (87) 94 Vapotherm 20.00 55.00 05/20/22 23:00 Vapotherm 20.00 55.00 05/20/22 22:30 90 Vapotherm 20.00 35 05/20/22 22:00 75 24 147/71 (96) 91 Vapotherm 20.00 35.00 05/20/22 21:00 75 25 148/75 (99) 94 Vapotherm 20.00 35.00 05/20/22 20:00 94 Vapotherm 20.00 35 05/20/22 20:00 35.8 05/20/22 20:00 77 26 152/74 (100) 94 Vapotherm 20.00 35.00 05/20/22 19:23 80 05/20/22 19:00 79 31 127/59 (81) 94 Vapotherm 20.00 35.00 05/20/22 18:24 94 Vapotherm 20.00 35 05/20/22 18:00 80 24 126/59 (81) 93 Vapotherm 20.00 35.00 05/20/22 17:00 82 31 148/69 (95) 91 Vapotherm 20.00 35.00 05/20/22 16:00 94 Vapotherm 20.00 35 05/20/22 16:00 36.3 05/20/22 16:00 135 24 106/68 (81) 94 Vapotherm 20.00 35.00 05/20/22 15:02 96 Vapotherm 20.00 45 05/20/22 15:00 79 30 122/60 (80) 91 Vapotherm 20.00 35.00 05/20/22 14:00 80 28 135/65 (88) 92 Vapotherm 20.00 35.00 12/21/22 13:00 82 25 142/63 (89) 92 Vapotherm 20.00 35.00 05/20/22 12:48 80 05/20/22 12:00 77 28 132/59 (83) 93 Vapotherm 20.00 35.00 05/20/22 11:49 Vapotherm 20.00 35.00 05/20/22 11:48 90 Vapotherm 20.00 35 05/20/22 11:00 73 20 107/54 (71) 96 Vapotherm 20.00 45.00 05/20/22 10:39 94 Vapotherm 20.00 45 05/20/22 10:00 79 18 130/72 (91) 95 Vapotherm 20.00 45.00 I & O 05/21/22 07:00 Intake Total 1950 ml Output Total 2300 ml Balance -350 ml Height & Weight Height: '" Weight: lbs. oz. kg; 32.59 BMI Method: General Appearance: No Apparent Distress, Obese HEENT: PERRL/EOMI, Moist Mucous Membranes, Other (BiPAP in place) Neck: Full Range of Motion, Normal Inspection, Non Tender, Supple, Carotid Bruit Respiratory: No Respiratory Distress, Decreased Breath Sounds Cardiovascular: Regular Rate, Rhythm, No Murmur Capillary Refill: Less Than 3 Seconds Extremity: Normal Inspection, No Pedal Edema Neurologic/Psychiatric: Alert, Motor Weakness Skin: Normal Color, Warm/Dry Lymphatic: No Adenopathy Results Lab Laboratory Tests 05/20/22 03:58 05/21/22 03:34 Assessment/Plan Assessment/Plan 1 NIVIA MOORE MD May 21, 2022 09:23
[2022-05-21] MEDS: RT--FLUTICASONE/SALMETEROL 113-14 (AIRDUO RespiCLICK) IH SCH ×2 (10:05→18:54)
--- NOTE | 2022-05-21 10:12 | Physical Therapy Daily Note ---
PT Daily Note-Current Subjective Pt agitated, reporting she needs to go to the bathroom and is not comfortable having a man help her. Nurse was busy, requested patient use bedside commode vs bed penn. Convinced patient to attempt up to bedside commode. Pain Section J - Health Conditions 1. Rarely or not at all 2. Occasionally 3. Frequently 4. Almost constantly 8. Unable to answer Pain Effect on Sleep: 1 Pain Interference with Therapy: 1 Pain Interference w/Day-to-Day: 1 Transfers SCALE: Activities may be completed with or without assistive devices. 5-Etxjdiaixc-brnfegx completes the activity by him/herself with no assistance from a helper. 5-Set-up or Clean-up Assistance-helper sets up or cleans up; patient completes activity. [place] assists only prior to or following the activity. 4-Supervision or Touching Assistance-helper provides verbal cues and/or touching/steadying and/or contact guard assistance as patient completes activity. Assistance may be provided throughout the activity or intermittently. 3-Partial/Moderate Assistance-helper does LESS THAN HALF the effort. [place] lifts, holds or supports trunk or limbs, but provides less than half the effort. 2-Substantial/Maximal Assistance-helper does MORE THAN HALF the effort. [place] lifts or holds trunk or limbs and provides more than half the effort. 6-Xfwjpdirb-gqongx does ALL the effort. Patient does none of the effort to complete the activity. Or, the assistance of 2 or more helpers is required for the patient to complete the activity. If activity was not attempted, code reason: 7-Patient Refused. 9-Not Applicable-not attempted and the patient did not perform the activity before the current illness, exacerbation or injury. 10-Not Attempted due to Environmental Limitations-(lack of equipment, weather restraints, etc.). 88-Not Attempted due to Medical Conditions or Safety Concerns. Supine to sit at EOB with Min Assist. Attempt transfer x 3 trials. Pt able to sit to stand to walker each trial with Min Assist but not able to complete transfer. Pt reported severe anxiety that was making it hard for her to breath. Assessment Pt indicated her anxiety was very high and she wanted to be left alone so her meds could help her calm down. Attempted stand pivot transfer 3 times, patient self limiting due to fear and reported anxiety. She became agitated so was r eturned to bed with Sohail. Nursing notified that patient would not complete commode transfer but she has the physical ability for a minimal assist transfer. PT Detention Goals Detention Goals PT Baseball Winder Goals Time Frame: May 30, 2022 Roll Left & Right (QC): 6 Sit to Lying (QC): 6 Lying-Sitting on Side/Bed(QC): 6 Sit to Stand (QC): 6 Chair/Cyo-qk-Dkauf Xfer(QC): 6 Toilet Transfer (QC): 6 Walk 10 feet (QC): 6 Walk 50ft with 2 Turns (QC): 6 Walk 150 ft (QC): 6 PT Plan Treatment/Plan Treatment Plan: Continue Plan of Care Treatment Plan: Bed Mobility, Education, Functional Activity Delilah, Functional Strength, Gait, Safety, Therapeutic Exercise, Transfers Treatment Duration: May 30, 2022 Frequency: 6 times per week Estimated Hrs Per Day: .25 hour per day Patient and/or Family Agrees t: Yes Time Time In: 929 Time Out: 944 DATE: May 21, 2022 Total Billed Treatment Time: 15 Total Billed Treatment visit, MELANI CHARLTON PT May 21, 2022 10:12
--- NOTE | 2022-05-21 11:21 | Progress Note - Hospitalist ---
Subjective HPI/CC On Admission Date Seen by Provider: May 21, 2022 Time Seen by Provider: 08:55 Patient is 71-year-old female who presented to the emergency department due to to mental status. She is unable to provide any history and so all history is obtained from the record. She was found confused by her family and they believe she fell off the couch but they are not certain of those details. She had a CT of her head which was negative for intracranial hemorrhage. She was hypoxic when EMS arrived with sats in the 70s. She was placed on a nonrebreather and her oxygen improved but she remained lethargic and ABG revealed profound hypercapnia with a CO2 of greater than 130. She was placed on BiPAP and transferred here to the ICU. Unfortunately in transfer she did not have CPAP so has just now been replaced on BiPAP just now. Subjective/Events-last exam She is feeling anxious this morning. She did not wear her BiPAP last night. She agrees to wear it at night. She denies shortness of breath. She has no other complaints. She was encouraged to work with therapy. Objective Exam Vital Signs Vital Signs Date Time Temp Pulse Resp B/P (MAP) Pulse Ox O2 Delivery O2 Flow Rate FiO2 05/21/22 11:00 74 27 141/57 (85) 98 High Flow N/C 4.00 05/21/22 07:50 45 05/21/22 07:40 37.0 Capillary Refill : Less Than 3 Seconds General Appearance: No Apparent Distress, Anxious, Obese Respiratory: Lungs Clear, No Respiratory Distress Cardiovascular: Regular Rate, Rhythm, No Murmur Gastrointestinal: Normal Bowel Sounds, Soft Extremity: Normal Inspection, No Pedal Edema Neurologic/Psychiatric: Alert, Motor Weakness Skin: Normal Color, Warm/Dry Results/Procedures Lab Laboratory Tests 05/21/22 03:34 Patient resulted labs reviewed. Imaging: Reviewed Imaging Report Assessment/Plan Assessment and Plan Assess & Plan/Chief Complaint Acute on chronic respiratory failure with hypoxia and hypercapnia COPD Exacerbation PNA Continue BiPAP at night Currently on Vapotherm, plan to transition to nasal cannula today Tapering steroids TeleICU following MAT protocol Rocephin and Doxycycline Social work assisting with obtaining home BiPAP Anxiety Xanax Debility PT/OT IRU evaluation HTN Resume home BP meds T2DM Resume metformin SSI HLD Statin CAD No acute needs, continue home meds Social situation Daughter reports to RN that patient had bed bugs in home Social work following DVT ppx: Lovenox Tachycardia, resolved Critical Care Critically Ill Patient Diagnosis/Problems Diagnosis/Problems (1) Acute respiratory failure with hypoxia and hypercapnia Status: Acute (2) COPD exacerbation Status: Acute (3) PNA (pneumonia) Status: Acute (4) Essential (primary) hypertension Status: Chronic (5) CAD (coronary artery disease) Status: Chronic (6) Obesity Status: Chronic KAREN TRINIDAD MD May 21, 2022 11:21
[2022-05-21] MEDS ORDERED: ALPRAZolam 0.25 MG (XANAX) TAB PO NR (11:30)
[2022-05-21] MEDS ORDERED: HydroCHLOROthiazide CAP/TABLET 12.5 MG TAB PO ONE (11:30)
[2022-05-21] MEDS ORDERED: lisINopril 5 MG (PRINIVIL) TABLET PO ONE (11:30)
[2022-05-21] MEDS ORDERED: metFORMIN 500 MG (GLUCOPHAGE) TAB PO ONE (11:30)
[2022-05-21] MEDS: ENOXAPARIN 40 MG/0.4 ML (LOVENOX) SYR SC SCH (13:08)
--- NOTE | 2022-05-21 13:17 | Occupational Therapy Eval ---
OT Evaluation-General/PLF Medical Diagnosis Admission Date May 13, 2022 at 11:37 Medical Diagnosis: respiratory failure with hypoxia Onset Date: May 13, 2022 Therapy Diagnosis Therapy Diagnosis: decreased ADL status Precautions Precautions/Isolations: Fall Prevention, Standard Precautions Referral Physician: Lyric Referral Reason: Evaluation/Treatment Medical History Pertinent Medical History: CAD, COPD, DM, HTN Additional Medical History asthma, COPD, CAD, HTN, DM Current History ED due to AMS, pt found confused by family. Social History Home: Single Level Current Living Status: Children ADL-Prior Level of Function SCALE: Activities may be completed with or without assistive devices. 9-Jjvxpagzmm-hmcuvvn completes the activity by him/herself with no assistance f rom a helper. 5-Set-up or Clean-up Assistance-helper sets up or cleans up; patient completes activity. [place] assists only prior to or following the activity. 4-Supervision or Touching Assistance-helper provides verbal cues and/or touching/steadying and/or contact guard assistance as patient completes activity. Assistance may be provided throughout the activity or intermittently. 3-Partial/Moderate Assistance-helper does LESS THAN HALF the effort. [place] lifts, holds or supports trunk or limbs, but provides less than half the effort. 2-Substantial/Maximal Assistance-helper does MORE THAN HALF the effort. [place] lifts or holds trunk or limbs and provides more than half the effort. 2-Ppacxyerh-pvufaw does ALL the effort. Patient does none of the effort to complete the activity. Or, the assistance of 2 or more helpers is required for the patient to complete the activity. If activity was not attempted, code reason: 7-Patient Refused. 9-Not Applicable-not attempted and the patient did not perform the activity before the current illness, exacerbation or injury. 10-Not Attempted due to Environmental Limitations-(lack of equipment, weather restraints, etc.). 88-Not Attempted due to Medical Conditions or Safety Concerns. ADL PLOF Comments Pt reports requiring some assistance at home at PLOF. Pt unclear on level of assistance required but does indicate she has assistance with groceries, house work, and some ADLs. While pt has been in hospital, her family has found caregiver assistance 3 times a week and home health care 2 times a week. She states her family is very involved and able to assist as needed. Self Care: Needed Some Help Functional Cognition: Independent OT Current Status Subjective Pt in bed, agreeable to OT evaluation. Pt asked to talk to "insurance lady" again. Pt states she was told that if she did not come to inpatient rehab unit then she will have to go to a facility, and she doesn't want to go anywhere but home. OT provided pt with therapeutic listening/communication, explaining the benefits of inpatient rehab with goal of returning home. Pt states she is willing to come to ARU if needed, but she would really like to go home. While pt has been in hospital, her family has found caregiver assistance 3 times a week and home health care 2 times a week. She states her family is very involved and able to assist as needed. Mental Status/Objective Attachments: Elizalde Catheter, Oxygen, Telemetry Current Hand Dominance: Right Upper Extremity ROM WFL Upper Extremity Strength grossly 3+/5 ADL-Treatment Eating (QC): 6 Oral Hygiene (QC): 5 Toileting Hygiene (QC): 3 (Min A for thoroughness of posterior hygiene.) Other Treatments Pt in bed, provided information about PLOF and home set up. Pt states her goal is to return home with family, and she has home health care set up 2 times a week and caregivers to assist 3 times a week, with family support as needed. Pt does not want to go to SNF, only agreeing to return home. Pt transferred supine to sit EOB, CGA. Pt stood from EOB to FWW, Min A. Pt stood at FWW, demo'd ability to use wet wipe for posterior hygiene, pt required min A for thoroughness. Pt used FWW to transfer to recliner, noted knees buckling x1, min A with transfer. Post tx, pt seated in recliner, call light in reach and all needs met. Education OT Patient Education: Correct positioning, Energy conservation, Modified ADL techniques, Progress toward Goal/Update tx plan, Purpose of tx/functional activities, Rehab process Teaching Recipient: Patient Teaching Methods: Discussion Response to Teaching: Verbalize Understanding OT Retirement Goals Retirement Goals Time Frame: Jun 05, 2022 Eating (QC): 6 Oral Hygiene (QC): 6 Toileting Hygiene (QC): 6 Shower/Bathe Self (QC): 4 Upper Body Dressing (QC): 5 Lower Body Dressing (QC): 4 On/Off Footwear (QC): 4 Additional Goals: 1-Demonstrate ADL Tasks, 2-Verbalize Understanding, 3- ImproveStrength/Delilah 1=Demonstrate adherence to instructed precautions during ADL tasks. 2=Patient will verbalize/demonstrate understanding of assistive devices/modifications for ADL. 3=Patient will improve strength/tolerance for activity to enable patient to perform ADL's. OT Education/Plan Problem List/Assessment Assessment: Decreased Activ Tolerance, Decreased UE Strength, Impaired Funct Balance, Impaired I ADL's, Impaired Self-Care Skills Discharge Recommendations Plan/Recommendations: Continue POC Treatment Plan/Plan of Care Patient would benefit from OT for education, treatment and training to promote independence in ADL's, mobility, safety and/or upper extremity function for ADL's. Plan of Care: ADL Retraining, Functional Mobility, UE Funct Exercise/Act Treatment Duration: Jun 05, 2022 Frequency: 3 times per week (3-5 times per week) Estimated Hrs Per Day: .25 hour per day Rehab Potential: Guarded Time Start Time: 12:40 Stop Time: 13:00 DATE: May 21, 2022 Total Time Billed (hr/min): 20 Billed Treatment Time 1, LEANDRO HEWITT OT May 21, 2022 13:17
[2022-05-21] MEDS: metFORMIN 500 MG (GLUCOPHAGE) TAB PO SCH (17:09)
[2022-05-21] MEDS: ALPRAZolam 0.5 MG (XANAX) TAB PO SCH (20:46)
[2022-05-21] MEDS: ROSUVASTATIN 10 MG (CRESTOR) TABLET PO SCH (20:46)
[2022-05-22] MEDS: RT-ALBUTEROL/IPRATROPIUM 3 ML (DUONEB) VIAL IH SCH ×4 (02:04→21:49)
[2022-05-22 05:30] LABS: HEMATOCRIT 29 % (35-52); HEMOGLOBIN 8.9 g/dL (11.5-16.0); MEAN CORPUSCULAR HEMOGLOBIN 28 pg (25-34); MEAN CORPUSCULAR HGB CONC 31 g/dL (32-36); MEAN CORPUSCULAR VOLUME 91 fL (80-99); MEAN PLATELET VOLUME 10.5 fL (9.0-12.2); PLATELET COUNT 235 10^3/uL (130-400); WHITE BLOOD COUNT 4.9 10^3/uL (4.3-11.0)
[2022-05-22 05:54] LABS: POTASSIUM 3.6 MMOL/L (3.6-5.0)
[2022-05-22 05:55] LABS: CALCIUM 8.7 MG/DL (8.5-10.1)
[2022-05-22 05:59] LABS: PHOSPHORUS 4.1 MG/DL (2.3-4.7)
[2022-05-22 06:00] LABS: CREATININE SERUM 0.77 MG/DL (0.60-1.30)
[2022-05-22] MEDS: POTASSIUM CL 10MEQ/50ML IVPB 50 ML IV SCH (06:00)
[2022-05-22 06:02] LABS: MAGNESIUM 1.8 MG/DL (1.6-2.4)
[2022-05-22] MEDS: MAGNESIUM 1 GM/100 ML IVPB 100 ML IV SCH (06:07)
[2022-05-22] MEDS: inSUlin ASPART (NovoLOG) 1 UNIT/0.01 ML (CHARGE PER UNIT) SC SCH ×4 (06:08→21:19)
[2022-05-22] MEDS: DOXYCYCLINE 100 MG (VIBRAMYCIN) TABLET PO SCH ×2 (06:57→18:00)
[2022-05-22] MEDS: metFORMIN 500 MG (GLUCOPHAGE) TAB PO SCH ×2 (06:58→18:01)
[2022-05-22] MEDS: KCL 20 MEQ TAB (K-DUR) PO SCH (06:58)
[2022-05-22] MEDS: predniSONE 20 MG TAB PO SCH (06:58)
[2022-05-22] MEDS: cefTRIAXone 1 GM PRE-MIX 50 ML IV SCH (07:57)
[2022-05-22] MEDS: PANTOPRAZOLE 40 MG (PROTONIX) VIAL IV SCH (07:57)
[2022-05-22] MEDS: dilTIAZem120 MG (CARDIZEM CD) CAP PO SCH (07:57)
[2022-05-22] MEDS: ALPRAZolam 0.5 MG (XANAX) TAB PO SCH ×2 (07:58→21:19)
[2022-05-22] MEDS: HydroCHLOROthiazide CAP/TABLET 12.5 MG TAB PO SCH (07:58)
[2022-05-22] MEDS: lisINopril 5 MG (PRINIVIL) TABLET PO SCH (07:58)
[2022-05-22 08:28] VITALS: BP 133/57
[2022-05-22] MEDS ORDERED: RT-ALBUTEROL/IPRATROPIUM 3 ML (DUONEB) VIAL INH PRN (09:00)
[2022-05-22 09:14] LABS: ABG BASE EXCESS 9.3 MMOL/L (-2.5-2.5); ABG OXYGEN SATURATION 97 % (94-100); ABG PCO2 68 MMHG (35-45); ABG PO2 81 MMHG (79-93); ABG TCO2 37.4 MMOL/L (21.0-31.0)
[2022-05-22 09:18] LABS: ABG PH 7.33 (7.37-7.43); ALLENS TEST YES-POS; INSPIRED O2 2L; PATIENT TEMP 36.8; VENTILATOR NO
--- NOTE | 2022-05-22 10:01 | Progress Note - Hospitalist ---
Subjective HPI/CC On Admission Date Seen by Provider: May 22, 2022 Time Seen by Provider: 08:55 Patient is 71-year-old female who presented to the emergency department due to to mental status. She is unable to provide any history and so all history is obtained from the record. She was found confused by her family and they believe she fell off the couch but they are not certain of those details. She had a CT of her head which was negative for intracranial hemorrhage. She was hypoxic when EMS arrived with sats in the 70s. She was placed on a nonrebreather and her oxygen improved but she remained lethargic and ABG revealed profound hypercapnia with a CO2 of greater than 130. She was placed on BiPAP and transferred here to the ICU. Unfortunately in transfer she did not have CPAP so has just now been replaced on BiPAP just now. Subjective/Events-last exam She is feeling ok today. She says she fell asleep without her BiPAP on last night. She agrees to wear the BiPAP tonight and to work with therapy today. She adamantly refuses to go to a detention on discharge. Objective Exam Vital Signs Vital Signs Date Time Temp Pulse Resp B/P (MAP) Pulse Ox O2 Delivery O2 Flow Rate FiO2 05/22/22 09:00 73 29 132/76 (94) 95 Nasal Cannula 2.00 05/22/22 08:28 36.2 28 Capillary Refill : Less Than 3 Seconds General Appearance: No Apparent Distress, Chronically ill, Obese Respiratory: No Respiratory Distress, Decreased Breath Sounds Cardiovascular: Regular Rate, Rhythm, No Murmur Gastrointestinal: Normal Bowel Sounds, Soft Extremity: Normal Inspection, No Pedal Edema Neurologic/Psychiatric: Alert, Oriented x3, Motor Weakness, Other (irritable) Results/Procedures Lab Laboratory Tests 05/22/22 04:38 Patient resulted labs reviewed. Imaging: Reviewed Imaging Report Assessment/Plan Assessment and Plan Assess & Plan/Chief Complaint Acute on chronic respiratory failure with hypoxia and hypercapnia COPD Exacerbation PNA Continue BiPAP at night Transitioned to nasal cannula during the day Tapering steroids TeleICU following MAT protocol Finishing antibiotics today Social work assisting with obtaining home BiPAP Anxiety Xanax Debility PT/OT IRU denied HTN Continue home BP meds T2DM Continue metformin SSI HLD Statin CAD No acute needs, continue home meds Social situation Daughter reports to RN that patient had bed bugs in home Social work following DVT ppx: Lovenox Tachycardia, resolved Critical Care Critically Ill Patient Diagnosis/Problems Diagnosis/Problems (1) Acute respiratory failure with hypoxia and hypercapnia Status: Acute (2) COPD exacerbation Status: Acute (3) PNA (pneumonia) Status: Acute (4) Essential (primary) hypertension Status: Chronic (5) CAD (coronary artery disease) Status: Chronic (6) Obesity Status: Chronic KAREN TRINIDAD MD May 22, 2022 10:01
--- NOTE | 2022-05-22 10:29 | Tele-ICU Progress Note ---
Subjective Date Seen by a Provider: May 22, 2022 Time Seen by a Provider: 10:29 Subjective/Events-last exam (Tele-ICU Physician , Progress Note ) Service provided via interactive audio and video telecommunications E-CARE system to a patient admitted to ICU bed in [facility]. Available chart/ vitals / labs / Images reviewed Video assessment done using teleICU camera, rest of exam as per RN Discussed with RN Events overnight : Afebrile hemodynamically stable Respiratory - VT I/O = neg 600 Drips: Pressors- no Patient is seen today due to persistent resp failure Consultants: kayla Hospital course: 05/13 71 y/o female with hypercarbic resp failure BIPAP 17/10 05/14- VT 25L 45 % 05/15-VT 25L 55% 05/19 - VT 20L 30 % . precedex 0.4, DIMOX 500 x1 05/20= VT 20L 45%. CARDIZEM GTT, diamox 500 x1 05/21- VT15L 45% , refused BIPAP at night A/P Acute on chronic hypercarbic and hypoxic resp failure , due to AECOPD - cont NIPPV, ABG improved refused BIPAP at night , VT15L 45% today , AAO - DIMOX 500 x1 - GOOD UO < BICARB IMPROVED _ WILL HOLD DOSE TODAY Anxiety - precedex OFF , prn xanax A fib RVR 05/13- SINUS now - started on amio ,on cardizem PO - RESUMED CARDIZEM GTT ON 05/19- OFF cardizem - AC as per cards - on proph dose lovenox only - PER CARDS Bacteremia with Coag neg staph vs comtaminamt - repeat 05/15 NEG -- NEG serology viral - UA and cxr negative -ABX to finish cours - today 5 - will stop recephin , finish doxy AECOPD - cont nebs , steroids IV stopped 05/14 = on po prednisone 40 05/15 Acute mental status change on admission - due to hypercarbia - follow - CTH - no acute findings , toxicology negative - BACK TO BASELINE now DM - ISS Edema RUE and RUE -US VENOUS UPPER EXT RT- neg for DVT 05/13 , neg for DVT RLE 05/15 Anemia - chronic - Hb drop 05/14 from 9->7.5 - possible delutionsl - stable since DNI as per RN report start PT . try to move in bed ,IS up to chair bisd, PT Lines : periph , (Central Line Necessity Reviewed) Elizalde: + OG: Nutrition: po adequate Analgesia: Anxiety/ delirium VTE Prophylaxis: amalia 40 Stress Ulcer Prophylaxis: PPI - on steroids Plans in collaboration with bedside consultants and IM MDs. Discussed with RN to reach out if any questions or concerns A total of 22 minutes of critical care time was devoted to this patient today, required to treat and/or prevent further deterioration of critical care condition ( as above ) . I am remotely monitoring this patient from another state. I am unable to do the bedside exam, and history/physical and pertinent information is taken from other notes in the computer and bedside staff. . Sepsis Event Evaluation Height, Weight, BMI Height: '" Weight: lbs. oz. kg; 32.59 BMI Method: Exam Exam Patient acknowledged, consented, and participated in this virtual visit which was conducted using real time audio/video Vital Signs Date Time Temp Pulse Resp B/P (MAP) Pulse Ox O2 Delivery O2 Flow Rate FiO2 05/22/22 10:00 85 23 145/60 (88) 95 Nasal Cannula 2.00 05/22/22 09:00 73 29 132/76 (94) 95 Nasal Cannula 2.00 05/22/22 08:28 36.2 69 94 28 05/22/22 08:00 76 23 136/58 (84) 95 Nasal Cannula 2.00 05/22/22 08:00 95 Nasal Cannula 4.00 05/22/22 07:42 36.2 05/22/22 07:00 71 05/22/22 07:00 68 22 123/59 (80) 95 Nasal Cannula 2.00 05/22/22 06:12 94 Nasal Cannula 2.00 05/22/22 06:00 69 18 133/57 (82) 94 05/22/22 06:00 69 18 133/57 (82) 94 Nasal Cannula 4.00 05/22/22 05:00 71 20 120/62 (81) 94 Nasal Cannula 4.00 05/22/22 05:00 71 20 120/62 (81) 93 05/22/22 04:02 95 Nasal Cannula 4.00 05/22/22 04:00 69 20 103/48 (66) 94 Nasal Cannula 4.00 05/22/22 04:00 69 18 103/48 (66) 94 05/22/22 03:00 71 19 119/52 (74) 95 05/22/22 03:00 71 19 119/52 (74) 95 Nasal Cannula 4.00 05/22/22 02:04 95 Nasal Cannula 2.00 05/22/22 02:00 71 19 109/51 (70) 94 05/22/22 02:00 71 19 109/51 (70) 95 Nasal Cannula 4.00 05/22/22 01:04 70 05/22/22 01:00 70 18 95/67 (76) 94 Nasal Cannula 4.00 05/22/22 01:00 70 18 95/67 (76) 94 05/22/22 01:00 72 05/22/22 00:06 71 22 114/54 (74) 96 05/22/22 00:00 71 22 114/54 (74) 96 Nasal Cannula 4.00 05/21/22 23:13 95 Nasal Cannula 4.00 05/21/22 23:00 74 20 125/58 (80) 99 Nasal Cannula 4.00 05/21/22 23:00 74 20 125/58 (80) 99 High Flow N/C 3.00 05/21/22 22:50 96 Nasal Cannula 2.00 05/21/22 22:00 73 24 127/61 (83) 98 05/21/22 22:00 73 26 127/61 (83) 98 High Flow N/C 3.00 05/21/22 21:00 80 18 124/64 (84) 96 05/21/22 21:00 80 17 124/64 (84) 96 High Flow N/C 3.00 05/21/22 20:00 36.7 05/21/22 20:00 96 16 149/81 (103) 96 05/21/22 20:00 91 21 149/81 (103) 90 High Flow N/C 3.00 05/21/22 19:30 95 Nasal Cannula 4.00 05/21/22 19:00 82 05/21/22 19:00 79 24 151/86 (107) 99 05/21/22 19:00 79 23 151/66 (94) 99 High Flow N/C 3.00 05/21/22 19:00 80 05/21/22 18:54 99 Nasal Cannula 2.00 05/21/22 18:00 75 23 150/69 (96) 98 High Flow N/C 3.00 05/21/22 17:00 76 13 144/68 (93) 97 High Flow N/C 3.00 05/21/22 16:00 97 High Flow N/C 4.00 05/21/22 16:00 75 22 137/59 (85) 96 High Flow N/C 3.00 05/21/22 16:00 36.7 05/21/22 15:00 75 18 124/53 (76) 97 High Flow N/C 3.00 05/21/22 14:38 94 High Flow N/C 3.00 05/21/22 14:28 97 Nasal Cannula 3.00 05/21/22 14:00 75 31 138/59 (85) 97 High Flow N/C 4.00 05/21/22 13:00 81 05/21/22 13:00 81 23 150/55 (86) 95 High Flow N/C 4.00 05/21/22 12:00 98 High Flow N/C 4.00 05/21/22 12:00 75 21 159/71 (100) 97 High Flow N/C 4.00 05/21/22 11:38 36.5 05/21/22 11:00 74 27 141/57 (85) 98 High Flow N/C 4.00 05/21/22 10:42 High Flow N/C 4.00 I & O 05/22/22 07:00 Intake Total 1555 ml Output Total 1850 ml Balance -295 ml Height & Weight Height: '" Weight: lbs. oz. kg; 32.59 BMI Method: General Appearance: No Apparent Distress, Chronically ill, Obese HEENT: PERRL/EOMI, Moist Mucous Membranes, Other Neck: Full Range of Motion, Normal Inspection, Non Tender, Supple, Carotid Bruit Respiratory: No Respiratory Distress, Decreased Breath Sounds Cardiovascular: Regular Rate, Rhythm, No Murmur Capillary Refill: Less Than 3 Seconds Extremity: Normal Inspection, No Pedal Edema Neurologic/Psychiatric: Alert, Oriented x3, Motor Weakness, Other Skin: Normal Color, Warm/Dry Lymphatic: No Adenopathy Results Lab Laboratory Tests 05/21/22 03:34 05/22/22 04:38 Assessment/Plan Assessment/Plan 1 NIVIA MOORE MD May 22, 2022 10:29
--- NOTE | 2022-05-22 10:40 | Cardiology Progress Note ---
Subjective Date Seen by Provider: May 22, 2022 Time Seen by Provider: 10:39 Subjective/Events-last exam Patient was seen at bedside, laying down comfortably. Feeling better, breathing better. Review of Systems General: No Chills, No Night Sweats; Fatigue; No Malaise, No Appetite, No Other HEENT: No Head Aches, No Visual Changes, No Eye Pain, No Ear Pain, No Dysphas ia, No Sinus Congestion, No Post Nasal Drip, No Sore Throat, No Other Pulmonary: Dyspnea; No Cough, No Pleuritic Chest Pain, No Other Cardiovascular: No: Chest Pain, Palpitations, Orthopnea, Paroxysmal Noc. Dyspnea, Edema, Lt Headedness, Other Objective-Cardiology Exam Last Set of Vital Signs Vital Signs 05/22/22 05/22/22 08:28 10:00 Temp 36.2 Pulse 85 Resp 23 B/P (MAP) 145/60 (88) Pulse Ox 95 O2 Delivery Nasal Cannula O2 Flow Rate 2.00 FiO2 28 I&O Intake and Output 05/22/22 00:00 Intake Total 1755 ml Output Total 2550 ml Balance -795 ml Intake Oral 1705 ml IV Total 50 ml Output Urine Total 2550 ml # Bowel Movements 1 General: Alert, Cooperative HEENT: Atraumatic, PERRLA Neck: Supple, No JVD, No Thyromegaly Lungs: Normal Air Movement, Other (Bilateral rhonchi) Heart: Regular Rate, Normal S1, Normal S2, No Murmurs Abdomen: Normal Bowel Sounds, Soft, No Tenderness, No Hepatosplenomegaly, No Masses Extremities: No Clubbing, No Cyanosis, No Edema, Normal Pulses, No Tenderness/Swelling Skin: No Rashes, No Breakdown, No Significant Lesion Neuro: Normal Gait, Normal Speech, Strength at 5/5 X4 Ext, Normal Tone, Sensation Intact Psych/Mental Status: Mental Status NL, Mood NL Results Lab Laboratory Tests 05/22/22 04:38 A/P-Cardiology Admission Diagnosis Acute respiratory failure Acute change in mental status Sinus tachycardia Anemia Assessment/Plan Status post acute respiratory failure, acute exacerbation of COPD Baseline oxygen dependent at home Possible using BiPAP at home. Improving slowly. Managed by medical team Status post acute change in mental status, confusion. Probably secondary to hypoxemia, currently mental status is better, able to respond appropriately Transient episode of tachycardia with a heart rate 150, she was started on amiodarone drip, in sinus rhythm at this time Did not have any history of atrial fibrillation, Amiodarone was discontinued, will continue to monitor. Coronary artery disease, history of stenting done in [facility] about 10 years ago. Had a stress test recently. Continue to monitor, evaluate EKG Hypertension, maintained on Cardizem CD. Restart and monitor blood pressure Anemia, monitor H&H Stool for occult blood was negative Managed by primary care team NAE FORD MD May 22, 2022 10:40
--- NOTE | 2022-05-22 11:42 | Physical Therapy Daily Note ---
PT Daily Note-Current Subjective Patient in recliner pre tx, agrees to PT, has no complaints of pain. Female therapist accompanies this therapist. Pain Section J - Health Conditions 1. Rarely or not at all 2. Occasionally 3. Frequently 4. Almost constantly 8. Unable to answer Pain Effect on Sleep: 1 Pain Interference with Therapy: 1 Pain Interference w/Day-to-Day: 1 Appearance Patient in recliner post tx with nurse call, phone, tray, all needs met. Mental Status Patient Orientation: Person, Place, Situation Attachments: Oxygen, Elizalde Catheter Transfers SCALE: Activities may be completed with or without assistive devices. 6-Thucrlsczz-qnpdjek completes the activity by him/herself with no assistance from a helper. 5-Set-up or Clean-up Assistance-helper sets up or cleans up; patient completes activity. [place] assists only prior to or following the activity. 4-Supervision or Touching Assistance-helper provides verbal cues and/or touching/steadying and/or contact guard assistance as patient completes activity. Assistance may be provided throughout the activity or intermittently. 3-Partial/Moderate Assistance-helper does LESS THAN HALF the effort. [place] lifts, holds or supports trunk or limbs, but provides less than half the effort. 2-Substantial/Maximal Assistance-helper does MORE THAN HALF the effort. [place] lifts or holds trunk or limbs and provides more than half the effort. 5-Aviitvbww-cjywcl does ALL the effort. Patient does none of the effort to complete the activity. Or, the assistance of 2 or more helpers is required for the patient to complete the activity. If activity was not attempted, code reason: 7-Patient Refused. 9-Not Applicable-not attempted and the patient did not perform the activity before the current illness, exacerbation or injury. 10-Not Attempted due to Environmental Limitations-(lack of equipment, weather restraints, etc.). 88-Not Attempted due to Medical Conditions or Safety Concerns. Sit to Stand (QC): 4 Chair/Bxq-jq-Zmseb Xfer(QC): 4 cues for hand placement and safety Gait Training Distance: 20' Walk 10 feet (QC): 4 Gait Persons Needed: 1 Gait Assistive Device: FWW slow ambulation, no LOB but was a little shaky and she says she feels "woozy", her O2 was 93% after ambulation Exercises Seated Therapy Exercises: Ankle pumps, Long arc quads Seated Reps: 20 Treatments transfers, ambulation, LE ROM Assessment Current Status: Fair Progress patient was able to ambulate a little today PT De Icer Goals Chcf Goals PT Chcf Goals Time Frame: May 30, 2022 Roll Left & Right (QC): 6 Sit to Lying (QC): 6 Lying-Sitting on Side/Bed(QC): 6 Sit to Stand (QC): 6 Chair/Miv-xm-Bvgkh Xfer(QC): 6 Toilet Transfer (QC): 6 Walk 10 feet (QC): 6 Walk 50ft with 2 Turns (QC): 6 Walk 150 ft (QC): 6 PT Plan Problem List Problem List: Activity Tolerance, Functional Strength, Safety, Balance, Gait, Transfer, Bed Mobility, ROM Treatment/Plan Treatment Plan: Continue Plan of Care Treatment Plan: Bed Mobility, Education, Functional Activity Delilah, Functional Strength, Gait, Safety, Therapeutic Exercise, Transfers Treatment Duration: May 30, 2022 Frequency: 6 times per week Estimated Hrs Per Day: .25 hour per day Patient and/or Family Agrees t: Yes Safety Risks/Education Patient Education: Gait Training, Transfer Techniques, Correct Positioning, Safety Issues Teaching Recipient: Patient Teaching Methods: Demonstration, Discussion Response to Teaching: Reinforcement Needed Time Time In: 1120 Time Out: 1134 DATE: May 22, 2022 Total Billed Treatment Time: 14 Total Billed Treatment 1 visit FA Mandeep' CAR DEGROOT PT May 22, 2022 11:42
--- NOTE | 2022-05-22 11:46 | Occupational Ther Daily Note ---
OT Current Status-Daily Note Subjective Pt in recliner, agreeable to OT Tx. ADL-Treatment Therapy Code Descriptions/Definitions Functional [place] Measure: 0=Not Assessed/NA 4=Minimal Assistance 1=Total Assistance 5=Supervision or Setup 2=Maximal Assistance 6=Modified [place] 3=Moderate Assistance 7=Complete IndependenceSCALE: Activities may be completed with or without assistive devices. 2-Xzpnmkaylx-kkohgmv completes the activity by him/herself with no assistance from a helper. 5-Set-up or Clean-up Assistance-helper sets up or cleans up; patient completes activity. [place] assists only prior to or following the activity. 4-Supervision or Touching Assistance-helper provides verbal cues and/or touching/steadying and/or contact guard assistance as patient completes activity. Assistance may be provided throughout the activity or intermittently. 3-Partial/Moderate Assistance-helper does LESS THAN HALF the effort. [place] lifts, holds or supports trunk or limbs, but provides less than half the effort. 2-Substantial/Maximal Assistance-helper does MORE THAN HALF the effort. [place] lifts or holds trunk or limbs and provides more than half the effort. 4-Zaktftiiw-zyfyjq does ALL the effort. Patient does none of the effort to compl ete the activity. Or, the assistance of 2 or more helpers is required for the patient to complete the activity. If activity was not attempted, code reason: 7-Patient Refused. 9-Not Applicable-not attempted and the patient did not perform the activity before the current illness, exacerbation or injury. 10-Not Attempted due to Environmental Limitations-(lack of equipment, weather restraints, etc.). 88-Not Attempted due to Medical Conditions or Safety Concerns. Other Treatment Pt seated in recliner, stood from [facility]. Pt performed functional mobility around room, 20', [facility]. Pt slow with ambulation, c/o feeling "woozy", O2 saturation at 93%. Pt then completed x10 reps for BUE shoulder flexion and front punch. Post tx, pt in recliner, call light in reach and all needs met. Education OT Patient Education: Correct positioning, Energy conservation, Modified ADL techniques, Progress toward Goal/Update tx plan, Purpose of tx/functional activities Teaching Recipient: Patient Teaching Methods: Discussion Response to Teaching: Verbalize Understanding OT Retirement Goals Retirement Goals Time Frame: Jun 05, 2022 Eating (QC): 6 Oral Hygiene (QC): 6 Toileting Hygiene (QC): 6 Shower/Bathe Self (QC): 4 Upper Body Dressing (QC): 5 Lower Body Dressing (QC): 4 On/Off Footwear (QC): 4 Additional Goals: 1-Demonstrate ADL Tasks, 2-Verbalize Understanding, 3- ImproveStrength/Delilah 1=Demonstrate adherence to instructed precautions during ADL tasks. 2=Patient will verbalize/demonstrate understanding of assistive devices/modifications for ADL. 3=Patient will improve strength/tolerance for activity to enable patient to perform ADL's. OT Education/Plan Problem List/Assessment Assessment: Decreased Activ Tolerance, Decreased UE Strength, Impaired Funct Balance, Impaired I ADL's, Impaired Self-Care Skills Discharge Recommendations Plan/Recommendations: Continue POC Treatment Plan/Plan of Care Patient would benefit from OT for education, treatment and training to promote independence in ADL's, mobility, safety and/or upper extremity function for ADL's. Plan of Care: ADL Retraining, Functional Mobility, UE Funct Exercise/Act Treatment Duration: Jun 05, 2022 Frequency: 3 times per week (3-5 times per week) Estimated Hrs Per Day: .25 hour per day Rehab Potential: Guarded Time Start Time: 11:20 Stop Time: 11:34 DATE: May 22, 2022 Total Time Billed (hr/min): 14 Billed Treatment Time 1, LEANDRO CARO OT May 22, 2022 11:46
--- NOTE | 2022-05-22 12:20 | D/C HH Face to Face Order ---
D/C Face to Face Orders Instructions for Patient Via [facility], Patient Instructions/FollowUp: Take medications as prescribed. Wear your BiPAP at night. Follow up with your PCP in about a week. Return with worsening shortness of breath, pain, or if you feel like you are getting worse. Physician to follow Patient: Mary Jane Discharge Diet for Home: No Restrictions Patient Data-Allergies,Ht & Wt Patient Allergies: Coded Allergies: egg (Unverified Allergy, Unknown, 12/03/20) orange (Unverified Allergy, Unknown, 12/03/20) Home Health Need/Face to Face Date of Face to Face: May 22, 2022 Clinical Findings: Generalized weakness and fatigue, Muscle weakness I have seen Pt doqs-vk-pupc: Yes Discharged To: Home Diagnosis/Conditions: Respiratory failure COPD Pneumonia HTN T2DM CAD Obesity Problems/Diagnosis/Condition: (1) Debility (2) Acute respiratory failure with hypoxia and hypercapnia (3) PNA (pneumonia) (4) Essential (primary) hypertension (5) Non-insulin dependent type 2 diabetes mellitus (6) CAD (coronary artery disease) (7) Obesity (8) COPD exacerbation Patient is Homebound due to: Muscle weakness, Shortness of breath/distress Homebound Status Due to the above stated illness, injury or surgical procedure (medical condition or diagnosis) and associated clinical findings, the patient is homebound because of his/her inability to leave home except with aid of a supportive device and/or person AND leaving the home requires a considerable and taxing effort or is medically contraindicated. Pt req the following assistanc: Aid of another person Home Health Nursing Orders Home Health Services Order: Nursing Services, Senior Network Administrator-Evaluate & Treat, Physical Therapy-Evaluate & Treat Home Health Infusion Therapy Line Start Date: May 13, 2022 Therapy Orders Therapy Orders: OT (must have SN or PT order), Physical Therapy Therapy Specific Orders: Eval assistive deivces, Teach enviro modifications/safety, Gait training, Increase strength/endurance Certify Stmt I certify that this patient is under my care and that I, a nurse practitioner or a physician; a learning and development assistant working with me, had a face to face encounter that - meets the physician face to face encounter requirements with this patient as dated. KAREN TRINIDAD MD May 22, 2022 12:20
[2022-05-22] MEDS: ENOXAPARIN 40 MG/0.4 ML (LOVENOX) SYR SC SCH (12:33)
[2022-05-22] MEDS: ROSUVASTATIN 10 MG (CRESTOR) TABLET PO SCH (21:19)
[2022-05-22] MEDS: RT--FLUTICASONE/SALMETEROL 113-14 (AIRDUO RespiCLICK) IH SCH (21:50)
[2022-05-23] MEDS: RT-ALBUTEROL/IPRATROPIUM 3 ML (DUONEB) VIAL IH SCH ×2 (02:45→10:20)
[2022-05-23 04:25] LABS: HEMATOCRIT 27 % (35-52); HEMOGLOBIN 8.5 g/dL (11.5-16.0); MEAN CORPUSCULAR HEMOGLOBIN 29 pg (25-34); MEAN CORPUSCULAR HGB CONC 31 g/dL (32-36); MEAN CORPUSCULAR VOLUME 92 fL (80-99); PLATELET COUNT 204 10^3/uL (130-400); WHITE BLOOD COUNT 4.6 10^3/uL (4.3-11.0)
[2022-05-23 04:34] LABS: POTASSIUM 3.8 MMOL/L (3.6-5.0)
[2022-05-23 04:36] LABS: CALCIUM 8.2 MG/DL (8.5-10.1)
[2022-05-23 04:40] LABS: CREATININE SERUM 0.73 MG/DL (0.60-1.30)
[2022-05-23 04:42] LABS: MAGNESIUM 1.7 MG/DL (1.6-2.4)
[2022-05-23] MEDS: KCL 20 MEQ TAB (K-DUR) PO SCH (06:20)
[2022-05-23] MEDS: POTASSIUM CL 10MEQ/50ML IVPB 50 ML IV SCH (06:20)
[2022-05-23] MEDS: inSUlin ASPART (NovoLOG) 1 UNIT/0.01 ML (CHARGE PER UNIT) SC SCH (06:21)
[2022-05-23] MEDS: MAGNESIUM 1 GM/100 ML IVPB 100 ML IV SCH (06:29)
[2022-05-23] MEDS: metFORMIN 500 MG (GLUCOPHAGE) TAB PO SCH (06:33)
[2022-05-23] MEDS ORDERED: predniSONE 20 MG TAB PO SCH (07:00)
[2022-05-23] MEDS: PANTOPRAZOLE 40 MG (PROTONIX) VIAL IV SCH (09:14)
[2022-05-23] MEDS: HydroCHLOROthiazide CAP/TABLET 12.5 MG TAB PO SCH (09:14)
[2022-05-23] MEDS: dilTIAZem120 MG (CARDIZEM CD) CAP PO SCH (09:14)
[2022-05-23] MEDS: ALPRAZolam 0.5 MG (XANAX) TAB PO SCH (09:14)
[2022-05-23] MEDS: lisINopril 5 MG (PRINIVIL) TABLET PO SCH (09:14)
--- NOTE | 2022-05-23 09:45 | Cardiology Progress Note ---
Subjective Date Seen by Provider: May 23, 2022 Time Seen by Provider: 09:45 Subjective/Events-last exam Patient was seen at bedside, sitting comfortably in a chair. Feeling better Review of Systems General: No Chills, No Night Sweats, No Fatigue, No Malaise, No Appetite, No Other HEENT: No Head Aches, No Visual Changes, No Eye Pain, No Ear Pain, No Dysphasia, No Sinus Congestion, No Post Nasal Drip, No Sore Throat, No Other Pulmonary: Dyspnea; No Cough, No Pleuritic Chest Pain, No Other Cardiovascular: No: Chest Pain, Palpitations, Orthopnea, Paroxysmal Noc. Dyspnea, Edema, Lt Headedness, Other Objective-Cardiology Exam Last Set of Vital Signs Vital Signs 05/22/22 05/23/22 05/23/22 08:28 07:21 09:00 Temp 36.7 Pulse 85 Resp 25 Pulse Ox 90 O2 Delivery Nasal Cannula O2 Flow Rate 2.00 FiO2 28 I&O Intake and Output 05/23/22 00:00 Intake Total 910 ml Output Total 751 ml Balance 159 ml Intake Oral 850 ml IV Total 60 ml Output Urine Total 750 ml Stool Total 1 ml General: Alert, Cooperative HEENT: Atraumatic, PERRLA Neck: Supple, No JVD, No Thyromegaly Lungs: Normal Air Movement, Other (Bilateral rhonchi) Heart: Regular Rate, Normal S1, Normal S2, No Murmurs Abdomen: Normal Bowel Sounds, Soft, No Tenderness, No Hepatosplenomegaly, No Masses Extremities: No Clubbing, No Cyanosis, No Edema, Normal Pulses, No Tenderness/Swelling Skin: No Rashes, No Breakdown, No Significant Lesion Neuro: Normal Gait, Normal Speech, Strength at 5/5 X4 Ext, Normal Tone, Sensation Intact Psych/Mental Status: Mental Status NL, Mood NL Results Lab Laboratory Tests 05/23/22 03:52 A/P-Cardiology Admission Diagnosis Acute respiratory failure Acute change in mental status Sinus tachycardia Anemia Assessment/Plan Status post acute respiratory failure, acute exacerbation of COPD Baseline oxygen dependent at home Possible using BiPAP at home. Possible discharge today. Status post acute change in mental status, confusion. Probably secondary to hypoxemia, currently mental status is better, able to respond appropriately Transient episode of tachycardia with a heart rate 150, she was started on amiodarone drip, in sinus rhythm at this time Did not have any history of atrial fibrillation, Amiodarone was discontinued, will continue to monitor. Coronary artery disease, history of stenting done in [facility] about 10 years ago. Had a stress test recently. Continue to monitor, evaluate EKG Hypertension, maintained on Cardizem CD. Restart and monitor blood pressure Anemia, monitor H&H Stool for occult blood was negative Managed by primary care team NAE FORD MD May 23, 2022 09:45
[2022-05-23] MEDS ORDERED: PRED10TA22 PO (10:08)
[2022-05-23] MEDS ORDERED: ALPR.25T PO (10:08)
[2022-05-23] MEDS ORDERED: FLUT1AER4 IH (10:08)
[2022-05-23] MEDS: RT--FLUTICASONE/SALMETEROL 113-14 (AIRDUO RespiCLICK) IH SCH (10:20)
--- NOTE | 2022-05-23 10:31 | Tele-ICU Progress Note ---
Subjective Date Seen by a Provider: May 23, 2022 Time Seen by a Provider: 10:30 Subjective/Events-last exam (Tele-ICU Physician , Progress Note ) Service provided via interactive audio and video telecommunications E-CARE system to a patient admitted to ICU bed in [facility]. Available chart/ vitals / labs / Images reviewed Video assessment done using teleICU camera, rest of exam as per RN Discussed with RN Events overnight : Afebrile hemodynamically stable Respiratory - 1l I/O = neg 600 Drips: Pressors- no Patient is seen today due to persistent resp failure Consultants: cards Hospital course: 05/13 71 y/o female with hypercarbic resp failure BIPAP 17/10 05/14- VT 25L 45 % 05/15-VT 25L 55% 05/19 - VT 20L 30 % . precedex 0.4, DIMOX 500 x1 05/20= VT 20L 45%. CARDIZEM GTT, diamox 500 x1 05/21- VT15L 45% , refused BIPAP at night A/P Acute on chronic hypercarbic and hypoxic resp failure , due to AECOPD - cont NIPPV, ABG improved refused BIPAP at night , 1 L O2 Anxiety - precedex OFF , prn xanax A fib RVR 05/13- SINUS now - started on amio ,on cardizem PO - RESUMED CARDIZEM GTT ON 05/19- OFF cardizem - AC as per cards - on proph dose lovenox only - PER CARDS Bacteremia with Coag neg staph vs comtaminamt - repeat 05/15 NEG -- NEG serology viral - UA and cxr negative -ABX to finish cours - today 5 - will stop recephin , finish doxy AECOPD - cont nebs , steroids IV stopped 05/14 = on po prednisone 40 05/15 Acute mental status change on admission - due to hypercarbia - follow - CTH - no acute findings , toxicology negative - BACK TO BASELINE now DM - ISS Edema RUE and RUE -US VENOUS UPPER EXT RT- neg for DVT 05/13 , neg for DVT RLE 05/15 Anemia - chronic - Hb drop 05/14 from 9->7.5 - possible delutionsl - stable since DNI as per RN report start PT . try to move in bed ,IS up to chair bisd, PT Lines : periph , (Central Line Necessity Reviewed) Elizalde: + OG: Nutrition: po adequate Analgesia: Anxiety/ delirium VTE Prophylaxis: amalia 40 Stress Ulcer Prophylaxis: PPI - on steroids Plans in collaboration with bedside consultants and IM MDs. Discussed with RN to reach out if any questions or concerns A total of 10 minutes of critical care time was devoted to this patient today, required to treat and/or prevent further deterioration of critical care condition ( as above ) . I am remotely monitoring this patient from another state. I am unable to do the bedside exam, and history/physical and pertinent information is taken from other notes in the computer and bedside staff. . Sepsis Event Evaluation Height, Weight, BMI Height: '" Weight: lbs. oz. kg; 32.59 BMI Method: Exam Exam Patient acknowledged, consented, and participated in this virtual visit which was conducted using real time audio/video Vital Signs Date Time Temp Pulse Resp B/P (MAP) Pulse Ox O2 Delivery O2 Flow Rate FiO2 05/23/22 10:21 95 Nasal Cannula 1.00 05/23/22 10:00 85 23 92 Nasal Cannula 2.00 05/23/22 09:00 85 25 90 Nasal Cannula 2.00 05/23/22 08:00 78 23 93 Nasal Cannula 2.00 05/23/22 08:00 93 Nasal Cannula 1.50 05/23/22 07:21 36.7 05/23/22 07:00 70 20 132/58 (82) 96 Nasal Cannula 2.00 05/23/22 07:00 71 05/23/22 06:00 69 20 124/52 (76) 96 05/23/22 05:00 70 20 124/55 (78) 96 05/23/22 04:00 74 19 120/55 (76) 96 05/23/22 03:46 95 Nasal Cannula 2.00 05/23/22 03:46 36.7 05/23/22 03:00 70 22 99/54 (69) 97 05/23/22 02:45 97 Nasal Cannula 2.00 05/23/22 02:36 70 20 114/49 (70) 95 05/23/22 02:00 69 22 108/50 (69) 96 05/23/22 01:00 70 20 114/49 (70) 95 Nasal Cannula 2.00 05/23/22 01:00 70 05/23/22 01:00 70 05/23/22 00:00 71 22 105/50 (68) 94 Nasal Cannula 2.00 05/22/22 23:41 36.7 05/22/22 23:41 95 Nasal Cannula 2.00 05/22/22 23:00 71 20 98/50 (66) 97 Nasal Cannula 2.00 05/22/22 22:00 74 22 121/61 (81) 97 Nasal Cannula 2.00 05/22/22 21:51 94 Nasal Cannula 2.00 05/22/22 21:00 82 24 127/60 (82) 96 Nasal Cannula 2.00 05/22/22 20:00 36.7 84 24 108/52 (70) 96 Nasal Cannula 2.00 05/22/22 19:15 95 Nasal Cannula 2.00 05/22/22 19:00 89 24 138/65 (89) 94 05/22/22 19:00 Nasal Cannula 2.00 05/22/22 19:00 89 05/22/22 18:00 84 27 92 Nasal Cannula 2.00 05/22/22 17:00 85 24 95 Nasal Cannula 2.00 05/22/22 16:00 88 24 92 Nasal Cannula 2.00 05/22/22 16:00 95 Nasal Cannula 4.00 05/22/22 15:25 97 Nasal Cannula 4.00 05/22/22 15:00 81 24 131/45 (73) 97 Nasal Cannula 2.00 05/22/22 14:00 81 131/58 (82) 96 Nasal Cannula 2.00 05/22/22 13:00 80 24 130/60 (83) 93 Nasal Cannula 2.00 05/22/22 12:30 79 05/22/22 12:00 36.4 05/22/22 12:00 79 28 123/52 (75) 97 Nasal Cannula 2.00 05/22/22 12:00 95 Nasal Cannula 4.00 05/22/22 11:00 85 143/71 (95) 97 Nasal Cannula 2.00 I & O 05/23/22 07:00 Intake Total 860 ml Output Total 551 ml Balance 309 ml Height & Weight Height: '" Weight: lbs. oz. kg; 32.59 BMI Method: General Appearance: No Apparent Distress, Chronically ill, Obese HEENT: PERRL/EOMI, Moist Mucous Membranes, Other Neck: Full Range of Motion, Normal Inspection, Non Tender, Supple, Carotid B ruit Respiratory: No Respiratory Distress, Decreased Breath Sounds Cardiovascular: Regular Rate, Rhythm, No Murmur Capillary Refill: Less Than 3 Seconds Extremity: Normal Inspection, No Pedal Edema Neurologic/Psychiatric: Alert, Oriented x3, Motor Weakness, Other Skin: Normal Color, Warm/Dry Lymphatic: No Adenopathy Results Lab Laboratory Tests 05/22/22 04:38 05/23/22 03:52 Assessment/Plan Assessment/Plan 1 NIVIA MOORE MD May 23, 2022 10:31
[2022-05-23] MEDS ORDERED: FOLI1TAB33 PO (11:02)
[2022-05-23] MEDS ORDERED: FERR325T18 PO (11:02)
--- NOTE | 2022-05-23 11:09 | Discharge Summary ---
Discharge Summary Hospital Course Was the Problem List Reviewed?: Yes Problems/Dx: (1) Acute respiratory failure with hypoxia and hypercapnia Status: Acute (2) COPD exacerbation Status: Acute (3) PNA (pneumonia) Status: Acute (4) Essential (primary) hypertension Status: Chronic (5) CAD (coronary artery disease) Status: Chronic (6) Obesity Status: Chronic (7) CIERRA (iron deficiency anemia) Status: Acute (8) Folic acid deficiency Status: Acute Hospital Course Date of Admission: May 13, 2022 at 11:37 Admission Diagnosis : Acute on chronic respiratory failure with hypoxia and hypercapnia due to COPD exacerbation and PNA Family Physician/Provider: Damian Hinton DO Date of Discharge: 05/23/22 Discharge Diagnosis: Acute on chronic respiratory failure with hypoxia and hypercapnia due to COPD exacerbation and PNA Hospital Course: Connie Mancuso is a 71 year old female who presented with shortness of breath and was admitted with acute on chronic respiratory failure with hypoxia and hypercapnia due to COPD exacerbation and pneumonia. She required BiPAP. She was able to come off the BiPAP during the day and required Vapotherm initially but was able to be transitioned to nasal cannula. She was set up with home BiPAP. She was given steroids and then a taper on discharge. She was given a course of antibiotics for pneumonia. She was started on iron and folic acid supplementation for anemia. She will likely need an outpatient colonoscopy for further evaluation. She should follow up with her PCP, Dr. Hinton, in about a week. She was discharged home in fair condition. She refused halfway placement and was set up with home health care. She was requiring 3 L continuously and 6 L with exertion at the time of discharge. Labs and Pending Lab Test: Laboratory Tests 05/22/22 17:03: Glucometer 166H 05/23/22 03:52: White Blood Count 4.6, Red Blood Count 2.98L, Hemoglobin 8.5L, Hematocrit 27L, Mean Corpuscular Volume 92, Mean Corpuscular Hemoglobin 29, Mean Corpuscular Hemoglobin Concent 31L, Red Cell Distribution Width 13.5, Platelet Count 204, Mean Platelet Volume 11.0, Sodium Level 137, Potassium Level 3.8, Chloride Level 98, Carbon Dioxide Level 29, Anion Gap 10, Blood Urea Nitrogen 22H, Creatinine 0.73, Estimat Glomerular Filtration Rate 88, BUN/Creatinine Ratio 30, Glucose Level 92, Calcium Level 8.2L, Phosphorus Level 4.0, Magnesium Level 1.7 05/23/22 10:30: Glucometer 162H Microbiology 05/16/22 Blood Culture - Final, Complete No growth Home Meds Active Ferrous Sulfate 325 Mg (65 Mg Iron) Tablet 325 Mg PO DAILY 30 Days Folic Acid 1 Mg Tablet 1 Mg PO DAILY 30 Days Fluticasone-Salmeterol 113-14 (Fluticasone/Salmeterol) 113 Mcg-14 Mcg/Actuation Aer.pow.ba 1 Puff IH RTBID 30 Days Prednisone 10 Mg Tab.ds.pk 10 Mg PO DAILY Take 6 tabs(60mg)daily,decrease by 1 tab(10mg)every other day. Xanax Tablet (Alprazolam) 0.25 Mg Tab 0.25 Mg PO Q8H PRN 14 Days Reported Metformin HCl 500 Mg Tablet 250 Mg PO TIDPC TAKES OF A 500MG TAB Rosuvastatin Calcium 10 Mg Tablet 10 Mg PO HS Hydrochlorothiazide 12.5 Mg Tablet 6.25 Mg PO DAILY TAKES OF A 12.5MG TAB Lisinopril 5 Mg Tablet 5 Mg PO DAILY Diltiazem ER (Diltiazem HCl) 120 Mg Capsule.er 120 Mg PO HS Iprat-Albut 0.5-3(2.5) mg/3 ml (Ipratropium/Albuterol Sulfate) 3 Ml Ampul.neb 3 Ml INH Q8H PRN Advair 250-50 Diskus (Fluticasone/Salmeterol) 1 Each Blst.w.dev 1 Puff INH BID Assessment/Pt Instructions See instructions Discharge Planning: >30 minutes discharge planning Discharge Instructions Discharge Diet: No Restrictions Activity as Tolerated: Yes Consultations TeleICU, Cardiology Discharge Physical Examination Vital Signs Vital Signs Date Time Temp Pulse Resp B/P (MAP) Pulse Ox O2 Delivery O2 Flow Rate FiO2 05/23/22 10:21 95 Nasal Cannula 1.00 05/23/22 10:00 85 23 05/23/22 07:21 36.7 05/22/22 08:28 28 General Appearance: No Apparent Distress, Chronically ill Respiratory: No Respiratory Distress, Decreased Breath Sounds Cardiovascular: Regular Rate, Rhythm, No Murmur Gastrointestinal: Normal Bowel Sounds, Soft Extremity: Normal Inspection, No Pedal Edema Neurologic/Psychiatric: Alert, Normal Mood/Affect, Motor Weakness Allergies: Coded Allergies: egg (Unverified Allergy, Unknown, 12/03/20) orange (Unverified Allergy, Unknown, 12/03/20) Copy Copies To 1: DAMIAN HINTON DO Discharge Summary Date of Admission May 13, 2022 at 11:37 Date of Discharge Discharge Date: May 23, 2022 Discharge Time: 13:00 Admission Diagnosis Acute on chronic respiratory failure Consults/Procedures Consulations TeleICU, Cardiology Discharge Diagnosis Acute on chronic respiratory failure with hypoxia and hypercapnia COPD Exacerbation PNA Anxiety Debility CIERRA Folic acid deficiency HTN T2DM HLD CAD (1) Acute respiratory failure with hypoxia and hypercapnia Status: Acute (2) COPD exacerbation Status: Acute (3) PNA (pneumonia) Status: Acute (4) Essential (primary) hypertension Status: Chronic (5) CAD (coronary artery disease) Status: Chronic (6) Obesity Status: Chronic (7) CIERRA (iron deficiency anemia) Status: Acute (8) Folic acid deficiency Status: Acute KAREN TRINIDAD MD May 23, 2022 11:08
[2022-05-23] MEDS ORDERED: meTOprolol 5 MG/5 ML (LOPRESSOR) VIAL IV NR (12:30)
[2022-05-23] MEDS ORDERED: meTOprolol 5 MG/5 ML (LOPRESSOR) VIAL ONE (12:32)
--- NOTE | 2022-05-23 12:42 | Physical Therapy Daily Note ---
PT Daily Note-Current Subjective Pt. in bedside chair, agrees to PT but states her breathing treatment is coming soon. Pain Section J - Health Conditions 1. Rarely or not at all 2. Occasionally 3. Frequently 4. Almost constantly 8. Unable to answer Pain Effect on Sleep: 1 Pain Interference with Therapy: 1 Pain Interference w/Day-to-Day: 1 Mental Status Patient Orientation: Person, Place, Time, Situation Attachments: Oxygen, IV Transfers SCALE: Activities may be completed with or without assistive devices. 2-Ffnyrbwiao-akrgdnl completes the activity by him/herself with no assistance from a helper. 5-Set-up or Clean-up Assistance-helper sets up or cleans up; patient completes activity. [place] assists only prior to or following the activity. 4-Supervision or Touching Assistance-helper provides verbal cues and/or touching/steadying and/or contact guard assistance as patient completes activity. Assistance may be provided throughout the activity or intermittently. 3-Partial/Moderate Assistance-helper does LESS THAN HALF the effort. [place] lifts, holds or supports trunk or limbs, but provides less than half the effort. 2-Substantial/Maximal Assistance-helper does MORE THAN HALF the effort. [place] lifts or holds trunk or limbs and provides more than half the effort. 4-Sxqovyihm-vgyrjr does ALL the effort. Patient does none of the effort to complete the activity. Or, the assistance of 2 or more helpers is required for the patient to complete the activity. If activity was not attempted, code reason: 7-Patient Refused. 9-Not Applicable-not attempted and the patient did not perform the activity before the current illness, exacerbation or injury. 10-Not Attempted due to Environmental Limitations-(lack of equipment, weather restraints, etc.). 88-Not Attempted due to Medical Conditions or Safety Concerns. Sit to Stand (QC): 4 Gait Training Does the Patient Walk?: Yes Distance: 20 ft Walk 10 feet (QC): 4 Gait Persons Needed: 1 Gait Assistive Device: FWW CGA needed Exercises Standing: Heel/toe raises, Marching, Mini squats Standing Reps: 10 Assessment Current Status: Good Progress, Fair Progress Pt.'s O2 sats dropped quickly to low-mid 80's with standing activities and took several minutes of seated rest and cues for breathing to increase >90%. Pt. was on 1.5L O2 and at rest was low 90s, quickly dropping with physical activity. Pt. remains limited in activity level due to drop in oxygen saturation. Pt. returned to bedside chair with call light and all needs met. PT Rn Maternal Child Goals Rn Maternal Child Goals PT Rn Maternal Child Goals Time Frame: May 30, 2022 Roll Left & Right (QC): 6 Sit to Lying (QC): 6 Lying-Sitting on Side/Bed(QC): 6 Sit to Stand (QC): 6 Chair/Otn-am-Iuwqp Xfer(QC): 6 Toilet Transfer (QC): 6 Walk 10 feet (QC): 6 Walk 50ft with 2 Turns (QC): 6 Walk 150 ft (QC): 6 PT Plan Treatment/Plan Treatment Plan: Continue Plan of Care Treatment Plan: Bed Mobility, Education, Functional Activity Delilah, Functional Strength, Gait, Safety, Therapeutic Exercise, Transfers Treatment Duration: May 30, 2022 Frequency: 6 times per week Estimated Hrs Per Day: .25 hour per day Patient and/or Family Agrees t: Yes Time Time In: 739 Time Out: 804 DATE: May 23, 2022 Total Billed Treatment Time: 25 Total Billed Treatment 1, FA 15', GT 10' MORENITA BECK PT May 23, 2022 12:42
[2022-05-23] MEDS ORDERED: DILT180C67 PO (13:15)
== END 2022-05-23 13:30 | disposition home health service (06) | DRG 193 ==
LOC: EDUNIT# 06:13 → ER FS 06:21 → ICU 11:37
PROVIDERS: ADMIT Family Medicine; ATTEND Internal Medicine
PROC: 5A09357 Assistance with Respiratory Ventilation, Less than 24 Consecutive Hours, Continuous Positive Airway Pressure (ICD-10-PCS; principal; 2022-05-13)
PROC: 5A0945A Assistance with Respiratory Ventilation, 24-96 Consecutive Hours, High Flow/Velocity Cannula (ICD-10-PCS; 2022-05-15)
DX: J18.9 Pneumonia, unspecified organism (principal); J96.21 Acute and chronic respiratory failure with hypoxia; J96.22 Acute and chronic respiratory failure with hypercapnia; J44.0 Chronic obstructive pulmonary disease with (acute) lower respiratory infection; J44.1 Chronic obstructive pulmonary disease with (acute) exacerbation; I25.10 Atherosclerotic heart disease of native coronary artery without angina pectoris; I10 Essential (primary) hypertension; E11.9 Type 2 diabetes mellitus without complications; Z66 Do not resuscitate; Z20.822 Contact with and (suspected) exposure to COVID-19; E87.5 Hyperkalemia; D50.9 Iron deficiency anemia, unspecified; I48.91 Unspecified atrial fibrillation; F41.9 Anxiety disorder, unspecified; E53.8 Deficiency of other specified B group vitamins; Z87.891 Personal history of nicotine dependence; Z99.81 Dependence on supplemental oxygen; Z95.5 Presence of coronary angioplasty implant and graft; Z79.84 Long term (current) use of oral hypoglycemic drugs; Z79.52 Long term (current) use of systemic steroids
CPT/HCPCS: 36415; 36600; 51702; 70450; 71045; 80048; 80053; 80076; 80202; 80306; 80320; 81000; 82274; 82607; 82728; 82746; 82805; 82947; 83540; 83550; 83605; 83735; 84100; 84443; 84484; 85007; 85014; 85018; 85027; 86141; 87040; 87077; 87186; 87636; 93005; 93041; 93306; 94640; 94660; 94761; 96374; 96375; 99291